=== PATIENT | female | born 1930 | race Hispanic/Latino ===

== ENCOUNTER 2016-10-07 15:20 | Inpatient (IN) | payer MEDICARE, OTHER ==
[2016-10-07] MEDS ORDERED: Albuterol-Ipratrop 3 mg / 0.5 (3 ml) UD IH STA (15:53)
--- NOTE | 2016-10-07 16:19 | ED PDOC ---
Arrival/HPI - General Chief Complaint: Shortness Of Breath Time Seen by Provider: 10/07/16 15:42 Historian: Patient - Critical Care Critical Care Minutes: 30 minutes - History of Present Illness Narrative History of Present Illness (Text): 10/07/16 16:07 A 86 year old female, whose past medical history includes COPD and emphysema, presents to the emergency department for shortness of breath for the past three weeks. Patient states her symptom has worsen today. She had a chest x-ray done today and instructed by her PMD Dr. Pedraza to go to the emergency department immediately due to right sided swelling. Patient denies nausea, vomiting, diarrhea, chest pain, abdominal pain, or any other complaints. PMD: Dr. Pedraza Time/Duration: > week (3 weeks) Symptom Course: Worsening Context: Home Past Medical History - Provider Review Nursing Documentation Reviewed: Yes - Infectious Disease Hx of Infectious Diseases: None - Pulmonary Hx Chronic Obstructive Pulmonary Disease (COPD): Yes - Psychiatric Hx Substance Use: No Family/Social History - Physician Review Nursing Documentation Reviewed: Yes Family/Social History: No Known Family HX Smoking Status: Never Smoked Hx Alcohol Use: No Hx Substance Use: No Allergies/Home Meds Allergies/Adverse Reactions: Allergies No Known Allergies Allergy (Verified 10/07/16 15:35) Home Medications: Home Meds Medication Instructions Recorded Confirmed Albuterol Sulfate [Proair Hfa] 0.09 mg IH DAILY 10/07/16 10/07/16 Amoxicillin [Amoxil 500 mg Cap] 500 mg PO TID 10/07/16 10/07/16 Brimonidine 0.15% [Alphagan P 5 Ml] 1 drop OP TID 10/07/16 10/07/16 Dorzolamide HCl 1 drop OP BID 10/07/16 10/07/16 Furosemide [Lasix] 20 mg PO DAILY 10/07/16 10/07/16 Latanoprost 0.005% Opht [XALATAN 1 drp OP HS 10/07/16 10/07/16 2.5 Ml] Salmeterol Xinafoate/Fluticaso 2 puff IH AMHS 10/07/16 10/07/16 [Advair Hfa 230/21] amLODIPine [Norvasc] 10 mg PO DAILY 10/07/16 10/07/16 Review of Systems - Physician Review All systems were reviewed & negative as marked: Yes - Review of Systems Constitutional: Normal Respiratory: SOB Cardiovascular: absent: Chest Pain Gastrointestinal: absent: Abdominal Pain, Diarrhea, Nausea, Vomiting Musculoskeletal: Other (Right sided swelling) Physical Exam Vital Signs Reviewed: Yes Vital Signs Temp Pulse Resp BP Pulse Ox 10/07/16 17:48 80 104/66 10/07/16 17:40 97.8 F 10/07/16 17:39 124 H 104/66 10/07/16 17:36 124 H 18 104/66 92 L 10/07/16 15:35 97.5 F L 130 H 20 106/67 92 L Temperature: Afebrile Blood Pressure: Normal Pulse: Tachycardic Respiratory Rate: Normal Appearance: Positive for: Well-Appearing Pain Distress: None Mental Status: Positive for: Alert and Oriented X 3 - Systems Exam Head: Present: Atraumatic, Normocephalic Pupils: Present: PERRL Conjunctiva: Present: Normal Mouth: Present: Moist Mucous Membranes Pharnyx: Present: Normal. No: ERYTHEMA, EXUDATE, TONSILS ENLARGED Neck: Present: Normal Range of Motion Respiratory/Chest: Present: Wheezes (Wheezing Bilaterally), Decreased Breath Sounds (on right side). No: Respiratory Distress, Accessory Muscle Use Cardiovascular: Present: Normal S1, S2, Irregular Rhythm, Tachycardic. No: Murmurs Abdomen: Present: Normal Bowel Sounds. No: Tenderness, Distention, Peritoneal Signs Upper Extremity: Present: Normal Inspection. No: Cyanosis, Edema Lower Extremity: Present: Normal Inspection. No: Edema Neurological: Present: GCS=15, CN II-XII Intact, Speech Normal, Motor Func Grossly Intact Skin: Present: Warm, Dry, Normal Color. No: Rashes Psychiatric: Present: Alert, Oriented x 3, Normal Insight, Normal Concentration Medical Decision Making ED Course and Treatment: 10/07/16 16:31 Impression: A 86 year old patient complains of shortness of breath. She was told by her PMD to come in for right sided swelling. History of COPD and emphysema. Plan: --Labs --EKG --Chest X-Ray --Duoneb -- Reassess and disposition Progress Notes: Report Date : 10/07/2016 16:39:45 Dictator : Alo Patel MD IMPRESSION: Complete opacification of right lung without mediastinal shift 10/07/16 17:[address] Knight, who accepts patient admission to telemetry. 10/07/16 18:04 EKG shows rapid atrial fibrillation rate approximately [address] and T-wave changes and poor R waves with no old available - Lab Interpretations Lab Results: 10/07/16 16:30 10/07/16 16:30 Lab Results 10/07/16 16:35: pCO2 46 H, pO2 65.0 L, HCO3 29.8 H, ABG pH 7.42, ABG Total CO2 31.2 H, ABG O2 Saturation 94.5 L, ABG O2 Content 16.1, ABG Base Excess 4.5 H, ABG Hemoglobin 12.5, ABG Carboxyhemoglobin 2.2 H, POC ABG HHb (Measured) 5.3 H, ABG Methemoglobin 1.2, ABG O2 Capacity 17.0, Hgb O2 Saturation 91.3 L, FiO2 21.0 10/07/16 16:30: Sodium 128 L, Potassium 3.8, Chloride 88 L, Carbon Dioxide 29, Anion Gap 15, BUN 13, Creatinine 0.7, Est GFR ( Amer) > 60, Est GFR (Non- Af Amer) > 60, Random Glucose 118 H, Calcium 9.0, Total Bilirubin 0.6, AST 27, ALT 40, Alkaline Phosphatase 64, Lactate Dehydrogenase 445, Total Creatine Kinase 36, Troponin I < 0.01, NT-Pro-B Natriuret Pep 583 H, Total Protein 7.1, Albumin 3.7, Globulin 3.3, Albumin/Globulin Ratio 1.1 10/07/16 16:30: PT 10.5, INR 0.97, APTT 29.6, D-Dimer, Quantitative 0.94 H 10/07/16 16:30: WBC 13.0 H, RBC 4.37, Hgb 12.3, Hct 36.3, MCV 83.1, MCH 28.1, MCHC 33.9, RDW 13.5, Plt Count 453 H, MPV 9.5, Gran % 81.2 H, Lymph % (Auto) 9.6 L, Bollinger % (Auto) 8.9 H, Eos % (Auto) 0.1 L, Baso % (Auto) 0.2, Gran # 10.53 H, Lymph # 1.3, Bollinger # 1.2 H, Eos # 0.0, Baso # 0.02 I have reviewed the lab results: Yes - RAD Interpretation Radiology Orders: 10/07/16 15:53 CHEST PORTABLE [RAD] Stat - Medication Orders Current Medication Orders: diltiaZEM IVPB 100mg in NS (Cardizem 100mg In Ns) 100 mls @ 5 mls/hr IV .Q20H PRN; Protocol; 5 MG/HR PRN Reason: PER MD Last Admin: 10/07/16 17:48 Dose: 5 mls/hr Discontinued Medications Albuterol/Ipratropium (Duoneb 3 Mg/0.5 Mg (3 Ml) Ud) 3 ml IH ONCE STA Stop: 10/07/16 15:54 Last Admin: 10/07/16 16:46 Dose: 3 ml Diltiazem HCl (Cardizem) 20 mg IVP ONCE ONE Stop: 10/07/16 17:14 Last Admin: 10/07/16 17:39 Dose: 15 mg Comments: Dr. Josef philip og only giving 15mg - Scribe Statement The provider has reviewed the documentation as recorded by the Scribe Maxim Chauhan training with Rosalinda Chanel Provider Scribe Attestation: All medical record entries made by the Scribe were at my direction and personally dictated by me. I have reviewed the chart and agree that the record accurately reflects my personal performance of the history, physical exam, medical decision making, and the department course for this patient. I have also personally directed, reviewed, and agree with the discharge instructions and disposition. Disposition/Present on Arrival - Present on Arrival Any Indicators Present on Arrival: No History of DVT/PE: No History of Uncontrolled Diabetes: No Urinary Catheter: No History of Decub. Ulcer: No History Surgical Site Infection Following: None - Disposition Have Diagnosis and Disposition been Completed?: Yes Diagnosis: Atrial fibrillation, Hypoxia, Pleural effusion, Dyspnea, Elevated d-dimer Disposition: HOSPITALIZED Disposition Time: 17:56 Patient Plan: Admission, Telemetry Patient Problems: Current Active Problems Problem Status Onset Atrial fibrillation Acute Dyspnea Acute Elevated d-dimer Acute Hypoxia Acute Pleural effusion Acute Condition: CRITICAL Forms: [employer] (Slovenian)
[2016-10-07 16:38] LABS: ARTERIAL BLOOD GAS HCO3 29.8 mmol/L (21-28); ARTERIAL BLOOD GAS HEMOGLOBIN 12.5 g/dL (11.7-17.4); ARTERIAL BLOOD GAS O2 CONTENT 16.1 ML/dl (15-23); ARTERIAL BLOOD GAS O2 SAT 94.5 % (95-98); ARTERIAL BLOOD GAS PCO2 46 mm/Hg (35-45); ARTERIAL BLOOD GAS PH 7.42 (7.35-7.45); ARTERIAL BLOOD GAS TCO2 31.2 mmol.L (22-28)
--- NOTE | 2016-10-07 16:41 | RAD ---
HISTORY: sob COMPARISON: No prior. FINDINGS: LUNGS: There is diffuse opacification of the right lung with no significant mediastinal shift. Findings are consistent with pneumonia PLEURA: There may also be a right-sided pleural effusion. CARDIOVASCULAR: Normal. OSSEOUS STRUCTURES: No significant abnormalities. VISUALIZED UPPER ABDOMEN: Normal. OTHER FINDINGS: None. IMPRESSION: Complete opacification of right lung without mediastinal shift
[2016-10-07 16:53] LABS: BASO # 0.02 K/mm3 (0.0-2.0); BASO % 0.2 % (0.0-3.0); EOS % 0.1 % (1.5-5.0); GRAN # 10.53 (1.4-6.5); GRAN % 81.2 % (50.0-68.0); HEMOGLOBIN 12.3 gm/dL (12.0-16.0); LYMPH # 1.3 (1.2-3.4); LYMPH % 9.6 % (22.0-35.0); MEAN CELL VOLUME 83.1 fL (80.0-105.0); MEAN CORPUSCULAR HEMOGLOBIN 28.1 pg (25.0-35.0); MEAN CORPUSCULAR HGB CONC 33.9 g/dl (31.0-37.0); MEAN PLATELET VOLUME 9.5 fl (7.0-11.0); MONO # 1.2 (0.1-0.6); MONO % 8.9 % (1.0-6.0); PLATELET COUNT 453 10^3/uL (120.0-450.0); RBC 4.37 10^6/uL (3.5-6.1); RED CELL DISTRIBUTION WIDTH 13.5 % (11.5-14.5)
[2016-10-07 17:05] LABS: D DIMER 0.94 mg/L FEU (0-0.50); INR 0.97 (0.93-1.08); PARTIAL THROMBOPLASTIN TIME 29.6 Seconds (23.7-30.8); PROTHROMBIN TIME 10.5 Seconds (9.9-11.8)
[2016-10-07 17:06] LABS: ALB/GLOB RATIO 1.1 (1.1-1.8); ALBUMIN 3.7 g/dL (3.0-4.8); ALT/SGPT 40 U/L (7-56); AST/SGOT 27 U/L (15-39); BLOOD UREA NITROGEN 13 mg/dL (7-21); GFR AFRICAN-AMERICAN > 60; GFR NON-AFRICAN AMERICAN > 60
[2016-10-07] MEDS ORDERED: diltiaZEM IVPB 100mg in NS 100 ML IV PRN (17:13)
[2016-10-07 17:15] LABS: B-TYPE NATRIURETIC PEPTIDE 583 pg/mL (0-450)
[2016-10-07 17:16] LABS: TROPONIN I < 0.01 ng/mL
[2016-10-07] MEDS ORDERED: Azithromycin 500MG/NS 250ml 500 MG/250 ML BAG IVPB STA (22:27)
[2016-10-07] MEDS ORDERED: Enoxaparin 30 mg Syringe SC SCH (22:30)
[2016-10-07] MEDS ORDERED: Sodium Chloride 0.9% 1,000 ML IV SCH (23:00)
[2016-10-07] MEDS: Enoxaparin 60 mg Syringe SC SCH (23:49)
[2016-10-08 00:04] LABS: MAGNESIUM 1.7 mg/dL (1.7-2.2)
[2016-10-08 00:19] LABS: TROPONIN I < 0.01 ng/mL
[2016-10-08 03:03] VITALS: BMI 80234.2
[2016-10-08 06:19] LABS: MEAN CELL VOLUME 83.3 fL (80.0-105.0); MEAN CORPUSCULAR HEMOGLOBIN 27.9 pg (25.0-35.0); MEAN CORPUSCULAR HGB CONC 33.5 g/dl (31.0-37.0); MEAN PLATELET VOLUME 9.7 fl (7.0-11.0); RBC 4.3 10^6/uL (3.5-6.1); RED CELL DISTRIBUTION WIDTH 13.7 % (11.5-14.5); WHITE BLOOD COUNT 9.9 10^3/ul (4.5-11.0)
[2016-10-08] MEDS ORDERED: Levalbuterol 0.63 MG/3 ML Inhal Soln UD IH PRN (06:40)
[2016-10-08 07:15] LABS: ALB/GLOB RATIO 0.9 (1.1-1.8); ALBUMIN 3.3 g/dL (3.0-4.8); ALT/SGPT 34 U/L (7-56); AST/SGOT 24 U/L (15-39); BLOOD UREA NITROGEN 9 mg/dL (7-21); CALCIUM 8.4 mg/dL (8.4-10.5); GFR AFRICAN-AMERICAN > 60; GFR NON-AFRICAN AMERICAN > 60; MAGNESIUM 1.7 mg/dL (1.7-2.2)
[2016-10-08] MEDS ORDERED: Potassium Chloride 20 mEq ER Tab PO ONE (07:22)
--- NOTE | 2016-10-08 07:23 | CP.PCM.HP ---
<Jennifer Cruz - Last Filed: 10/08/16 11:10> History of Present Illness - History of Present Illness History of Present Illness: CC: sent by PMD 2nd to abnormal chest x-ray Patient is an 86 y/o F with PMH of HTN, COPD, CHF, emphysema ( not on home oxygen) whom was sent from pmd's office 2nd to abnormal chest x-ray. Patient states she has been experiencing excertional dyspnea for 3 weeks, which has limited her activities. Patient has been using her advair and pro air at home with no improvement. Patient states her PMD did an x-ray and told her to come to the ED due to abnormality. Patient admits to mild yellowish sputum, denies hemoptysis, denies fever, chills, n.v.d, denies night sweats. Patient lives by herself, denies sick contacts. In the ED, patient had chest x-ray which revealed complete opacification of the lung on the right with no mediastinal shift. Patient was also found to have RVR afib on ekg. Patient was giving 20 mg ivp Cardizem once in the ED. Patient was also started on antibiotics for CAP. Blood work were sent. Patient was also hypoxemic, and is currently saturating 95% on 2 L nasal cannula. PMH: HTN, COPD, emphysema, chf. PSH: Denies Social: Former tobacco, denies alcohol or illicit drug use. Lives alone, downstairs from her daughter, her daughter does ADL, was able to walk with a cane up until 3 weeks ago when she started to experience dyspnea with exertion. Present on Admission - Present on Admission Any Indicators Present on Admission: No History of DVT/PE: No History of Uncontrolled Diabetes: No Urinary Catheter: No Decubitus Ulcer Present: No History Surgical Site Infection Following: None Review of Systems - Review of Systems All systems: reviewed and no additional remarkable complaints except Review of Systems: 12 points ROS reviewed, all negative except as per HPI. Past Patient History - Infectious Disease Hx of Infectious Diseases: None - Past Social History Smoking Status: Former Smoker Alcohol: None Drugs: Denies Home Situation {Lives}: Alone - CARDIAC Hx Congestive Heart Failure: Yes Hx Hypertension: Yes - PULMONARY Hx Chronic Obstructive Pulmonary Disease (COPD): Yes - MUSCULOSKELETAL/RHEUMATOLOGICAL Hx Falls: No - PSYCHIATRIC Hx Substance Use: No - SURGICAL HISTORY Hx Surgeries: No Meds Allergies/Adverse Reactions: Allergies Allergy/AdvReac Type Severity Reaction Status Date / Time No Known Allergies Allergy Verified 10/07/16 15:35 Physical Exam - Constitutional Appears: No Acute Distress, Cachectic, Chronically Ill - Head Exam Head Exam: ATRAUMATIC, NORMAL INSPECTION, NORMOCEPHALIC - Eye Exam Eye Exam: EOMI, Normal appearance, PERRL. absent: Scleral icterus Pupil Exam: NORMAL ACCOMODATION, PERRL - ENT Exam ENT Exam: Mucous Membranes Moist - Neck Exam Neck exam: Positive for: Normal Inspection. Negative for: Lymphadenopathy, Meningismus, Thyromegaly - Respiratory Exam Respiratory Exam: Decreased Breath Sounds (on the right ), NORMAL BREATHING PATTERN. absent: Rales, Rhonchi, Wheezes, Respiratory Distress, Stridor - Cardiovascular Exam Cardiovascular Exam: Irregular Rhythm, +S1, +S2. absent: Gallop, JVD, Rubs - GI/Abdominal Exam GI & Abdominal Exam: Normal Bowel Sounds, Soft. absent: Distended, Rigid, Tenderness - Extremities Exam Extremities exam: Positive for: normal inspection - Back Exam Back exam: NORMAL INSPECTION - Neurological Exam Neurological exam: Alert, Oriented x3 - Psychiatric Exam Psychiatric exam: Depressed - Skin Skin Exam: Abrasion, Dry, Warm Results - Vital Signs Recent Vital Signs: Last Vital Signs Temp 97.8 F 10/08/16 06:00 Pulse 94 H 10/08/16 06:00 Resp 18 10/08/16 06:00 BP 142/68 10/08/16 06:00 Pulse Ox 95 10/08/16 06:00 - Labs Result Diagrams: 10/08/16 05:20 10/08/16 05:20 Labs: Laboratory Results - last 24 hr 10/07/16 10/08/16 10/08/16 23:25 05:20 05:20 WBC 9.9 D RBC 4.30 Hgb 12.0 Hct 35.8 L MCV 83.3 MCH 27.9 MCHC 33.5 RDW 13.7 Plt Count 411 MPV 9.7 Sodium 128 L Potassium 3.4 L Chloride 90 L Carbon Dioxide 30 Anion Gap 11 BUN 9 Creatinine 0.6 Est GFR ( Amer) > 60 Est GFR (Non-Af Amer) > 60 Random Glucose 91 Calcium 8.4 Phosphorus 3.3 3.5 Magnesium 1.7 1.7 Total Bilirubin 0.5 AST 24 ALT 34 Alkaline Phosphatase 65 Troponin I < 0.01 Total Protein 6.9 Albumin 3.3 Globulin 3.6 Albumin/Globulin Ratio 0.9 L Assessment & Plan - Assessment and Plan (Free Text) Assessment: 1) Right lobar CAP 2) Acute bronchitis 3) COPD 4) RVR Afib 5) Hyponatremia likely diuretics induced versus SIADH. 6) Hypokalemia likely diuretics induced. 7) htn Plan: Patient is currently on Rocephin, and zithromax for CAP. Afebrile, leukocytosis is trending down, bcx, urine legionella, and procal pending. ID following Patient is also on pulmocort, xoponex standing dose and prn, with tapering dose solumedrol for acute bronchitis. Pulm following. Pending repeat A/P lateral chest x-ray. For RV afib, rate is currently controlled, on po Lopressor. Also on therapeutic Lovenox. Will likely need fdc anticoagulation giving [id number] score of 5 and HASBELD score of zero. Trop neg x3, pro bnp of 583, Pending echo, tsh normal. Cardiology is following. Patient had elevated D-dimer, risk of PE according to [place] score is moderate, however d-dimer elevation may be due to large consolidation of the lung, and the tachycardia is likely 2nd to reaction from the infection. Will hold off CTPE for now. For hyponatremia, calculated serum osmolarity of 267, pending complete work up for hyponatremia. Potassium is repleted. Patient seen, examined, and case discussed with Dr Knight. - Date & Time Date: 10/08/16 Time: 07:40 <Rick Knight S - Last Filed: 10/08/16 15:00> Results - Vital Signs Recent Vital Signs: Last Vital Signs Temp 97.8 F 10/08/16 06:00 Pulse 86 10/08/16 11:57 Resp 20 10/08/16 11:57 BP 129/68 10/08/16 11:57 Pulse Ox 95 10/08/16 06:00 - Labs Result Diagrams: 10/08/16 05:20 10/08/16 05:20 Labs: Laboratory Results - last 24 hr 10/07/16 10/08/16 10/08/16 23:25 05:20 05:20 WBC 9.9 D RBC 4.30 Hgb 12.0 Hct 35.8 L MCV 83.3 MCH 27.9 MCHC 33.5 RDW 13.7 Plt Count 411 MPV 9.7 Sodium 128 L Potassium 3.4 L Chloride 90 L Carbon Dioxide 30 Anion Gap 11 BUN 9 Creatinine 0.6 Est GFR ( Amer) > 60 Est GFR (Non-Af Amer) > 60 Random Glucose 91 Serum Osmolality Calcium 8.4 Phosphorus 3.3 3.5 Magnesium 1.7 1.7 Total Bilirubin 0.5 AST 24 ALT 34 Alkaline Phosphatase 65 Troponin I < 0.01 < 0.01 Total Protein 6.9 Albumin 3.3 Globulin 3.6 Albumin/Globulin Ratio 0.9 L TSH 3rd Generation 10/08/16 10/08/16 05:20 13:22 WBC RBC Hgb Hct MCV MCH MCHC RDW Plt Count MPV Sodium Potassium Chloride Carbon Dioxide Anion Gap BUN Creatinine Est GFR ( Amer) Est GFR (Non-Af Amer) Random Glucose Serum Osmolality 274 Calcium Phosphorus Magnesium Total Bilirubin AST ALT Alkaline Phosphatase Troponin I Total Protein Albumin Globulin Albumin/Globulin Ratio TSH 3rd Generation 2.5 Assessment & Plan - Assessment and Plan (Free Text) Plan: Pt seen and exmined by me. I reviewed the note of the resident and agree with it. She has R lung infiltrate, possibly pneumonia. Spoke to daughter, Humaira, to update. Spoke to Dr Love and will get CT chest. May have effusion that requires drainage. Will consult Dr Skyler Lee. Meds and labs reviewed. I concerns of a malignancy due to heavy smoking history. She has been placed on Steroids for COPD. Afib is controlled. Check Osmolarity in urine and in serum.
[2016-10-08 07:26] LABS: TROPONIN I < 0.01 ng/mL
[2016-10-08] MEDS: Budesonide 0.5 mg/2 ml Inhal Susp UD IH SCH ×2 (07:56→20:58)
[2016-10-08] MEDS: Levalbuterol 0.63 MG/3 ML Inhal Soln UD IH SCH ×3 (07:56→20:59)
--- NOTE | 2016-10-08 08:26 | CON ---
DATE: 10/08/2016 REASON FOR CONSULTATION: Pneumonia. REFERRING PHYSICIAN: Rick Knight MD History is obtained via extensive discussion with the night nurse. I have also discussed the case with the patient at length. I have also reviewed the chart at length. HISTORY OF PRESENT ILLNESS: The patient is an 86-year-old female with past medical history significant for chronic obstructive pulmonary disease and emphysema, who presents to [facility] with increasing shortness of breath at rest, dyspnea on exertion, cough and minimal sputum production for the past week. The patient denies chest pain, coughing up of blood or chest pain-made worse with deep respirations. There is no history of temperature, chills or infectious exposure. There is no history of night sweats, weight loss or appetite change prior to the above events. No history of leg or calf pains. No history of syncope or diaphoresis. No history of recent travel or trauma. REVIEW OF SYSTEMS: No history of nausea, vomiting or diarrhea. No acute urinary symptoms. No new neurological or musculoskeletal complaints. Rest of the review of systems is negative. ALLERGIES: NO KNOWN ALLERGIES. SOCIAL HISTORY: Positive for tobacco. Negative for alcohol. FAMILY HISTORY: No inheritable diseases. HOME MEDICATIONS: Include Norvasc, Advair, Lasix, Amoxil and ProAir HFA. PHYSICAL EXAMINATION GENERAL: The patient is not short of breath at rest. She is not using accessory muscles for breathing. VITAL SIGNS: Temperature is 97.8, pulse 94, respirations 18 and blood pressure 142/68. Oxygen saturation on nasal cannula is 95%. HEENT: Normocephalic, atraumatic. NECK: No JVD. CARDIOVASCULAR: Systolic ejection murmur at the lower left sternal border. No S3 gallop. LUNGS: Bilateral rhonchi (right worse than left). Minimal expiratory wheezing bilaterally is also appreciated. EXTREMITIES: No clubbing, cyanosis or edema. Calves are nontender to palpation. GASTROINTESTINAL: Abdomen is soft, nontender and nondistended. Bowel sounds are positive. SKIN: No acute rash. NEUROLOGIC: Exam is limited at the present time. PERTINENT LABORATORY DATA: Chest x-ray was done yesterday and reviewed. There is diffuse opacification of the right lug with no mediastinal shift. Findings are consistent with pneumonia. CBC: White count 13.0, hemoglobin 12.3, hematocrit 36.3 and platelets are 453. Arterial blood gas was done on room air, results are: pH 7.42, pCO2 of 46 and pO2 of 65. Complete metabolic profile: Sodium 128, chloride 88, glucose 118, B-type natriuretic peptide 583. Rest of the metabolic profile is within normal limits. EKG was done in the emergency room and initially showed rapid atrial fibrillation. IMPRESSION: 1. Community-acquired pneumonia-right lung. 2. Acute bronchitis. 3. Chronic obstructive pulmonary disease. 4. Atrial fibrillation. PLAN: Again, I did discuss the case with the night nurse and the patient at length. The patient presents to [facility] with a 1 week history of worsening pulmonary symptoms. I did review the chest x-ray as above. There is diffuse opacification of the right lung without a mediastinal shift. As per Dr. Alamo, the findings are more consistent with pneumonia. The chest x-ray (as above) was done as a semi-erect portable film. It is fairly poor in quality. I will get a stat chest x-ray-PA and lateral-for better evaluation this morning. Pancultures have been ordered and will be analyzed when feasible. The patient has been started on antibiotic therapy. Infectious disease evaluation by Dr. Tovar has been ordered. On physical exam, the patient is in [id number] bronchospasm. I will start the patient on Xopenex nebulizer treatments, inhaled budesonide and low-dose intravenous steroids for now. Cardiology evaluation with Dr. Pineda has been called-due to the atrial fibrillation. The patient is currently on Lovenox. The patient does feel better this morning and is clinically improved. Additional pulmonary intervention will be based on the above results, as well as the clinical status of the patient. I will discuss the above with Dr. Knight. Thank you very much for this pulmonary consultation. Gabo Love MD MTDYvonne
--- NOTE | 2016-10-08 09:07 | CARD ---
APPROVED REPORT EKG Measurement Heart [id number] <Conclusion> Atrial fibrillation with rapid ventricular response Rightward axis PRWP STTW changes
--- NOTE | 2016-10-08 09:57 | RAD ---
HISTORY: COMPARISON: 10/07/2016 TECHNIQUE: Chest PA and lateral FINDINGS: LINES AND TUBES: None. LUNG AND PLEURA: There is persistent complete opacification of the right lung and mild shift of mediastinal to the left. The left lung is clear. The trachea is central. HEART AND MEDIASTINUM: Cannot be evaluated due to complete opacification of the right main thorax. Mild shift of mediastinal to the left. SKELETAL STRUCTURES: The bony structures are within normal limits for the patient's age. VISUALIZED UPPER ABDOMEN: Normal. OTHER FINDINGS: None. IMPRESSION: Persistent complete opacification of the right hemithorax with mild shift of mediastinal to the left. The differential considerations include pleural effusion and consolidation. The possibility of lung collapse is less likely given mild mediastinal shift to the left.
--- NOTE | 2016-10-08 10:13 | CT ---
PROCEDURE: CT Chest without contrast HISTORY: sob COMPARISON: None. TECHNIQUE: Contiguous axial images were obtained through the chest without intravenous contrast enhancement. Sagittal and coronal reconstructions were performed. Radiation dose (DLP): 213 mGy-cm. This CT exam was performed using one or more of the following dose reduction techniques: Automated exposure control, adjustment of the mA and/or kV according to patient size, and/or use of iterative reconstruction technique. FINDINGS: LUNGS: There is complete collapse in atelectasis of the right lung secondary to an endobronchial obstruction of the right mainstem bronchus. This is most likely due to a mucus plug. The finding is best appreciated on coronal image 56. MEDIASTINUM: Unremarkable thoracic aorta. No aneurysm. Normal sized heart. Main pulmonary artery unremarkable. No vascular congestion. No lymphadenopathy. PLEURA: There is a large right-sided pleural effusion BONES: No fracture. No destructive lesion. UPPER ABDOMEN: Grossly unremarkable. OTHER FINDINGS: The study was reviewed with Dr. Love IMPRESSION: Endobronchial obstruction of the right mainstem bronchus with complete atelectasis of the right lung and large right pleural effusion
[2016-10-08] MEDS: cefTRIAXone 1 gm 1 GM/100 ML BAG IVPB SCH (11:20)
[2016-10-08] MEDS: Azithromycin 500MG/NS 250ml 500 MG/250 ML BAG IVPB SCH (11:21)
--- NOTE | 2016-10-08 11:21 | CON ---
DATE: 10/08/2016 INDICATIONS: Shortness of breath, paroxysmal atrial fibrillation. HISTORY OF PRESENT ILLNESS: This is an 86-year-old woman admitted yesterday with several weeks of shortness of breath. She saw Dr. Pedraza. A chest x-ray was ordered and revealed opacification of the right chest. She was also found to have atrial fibrillation with a rapid ventricular respons. She exhibited atrial fib, atrial flutter, rapid ventricular response, short runs of ventricular tachycardia versus aberrantly conducted beats and she converted to sinus rhythm, her current rhythm at this time. She describes shortness of breath for several weeks, there has been no chest pain. She denies orthopnea, PND, syncope, presyncope, lightheadedness, dizziness, vertigo, palpitation, edema, fever, chills, cough, sputum production, hemoptysis, abdomina pain, nausea, vomiting, diarrhea, constipation or melena. PAST MEDICAL HISTORY: Notable for cigarette smoking and COPD. There is a history of hypertension. There is no history of rheumatic fever, myocardial infarction, angina, congestive heart failure, stoke, TIA, gout, diabetes. MEDICATIONS: At the time of admission were amlodipine, Alphagan, Advair, amoxicillin, dorzolamide, Lasix, Albuterol, latanoprost. ALLERGIES: THERE ARE NO MEDICATION ALLERGIES REPORTED. SOCIAL HISTORY: She lives at home. She is a former, remote smoker. She does not drink alcohol significantly. FAMILY HISTORY: Noncontributory. REVIEW OF SYSTEMS: A 10-point review of systems, otherwise unremarkable except as noted above. PHYSICAL EXAMINATION: GENERAL: She is a well-developed elderly woman, lying in bed on telemetry, in no acute distress. VITAL SIGNS: She is currently in sinus rhythm 70-94 beats per minutes. She is afebrile. Respirations 18-20, O2 sat 92-95% on room air and nasal cannula. HEENT: Reveals no neck vein distention, thyromegaly, or carotid bruits. Mucous membranes moist. Conjunctivae pink. NECK: Supple. LUNGS: Lungs joy diminished breath sounds on the right side, scattered rhonchi on the left. HEART: Revealed a regular rhythm, normal first and second heart sounds. Soft systolic murmur along the left sternal border. ABDOMEN: Soft, bowel sounds present. No mass, organomegaly, tenderness, rebound, guarding, CVA tenderness, palpable abdominal aortic aneurysm. EXTREMITIES: Revealed no cyanosis, clubbing, or edema. NEUROLOGIC: Awake, alert, and oriented. PSYCHIATRIC: Normal to less than mood and affect. SKIN: Warm and dry. No rash or cellulitis. LABORATORY AND IMAGING DATA: A chest x-ray revealed opacification of the right hemithorax without mediastinal shift. EKG demonstrates atrial fibrillation, poor R wave progression, nonspecific ST wave changes. White count of 9900, hemoglobin 12, hematocrit 35.8, platelet count normal. PT,PTT, INR normal. D-dimer elevated at 0.94. Blood gases are noted. Electrolytes notable for sodium 128, potassium 3.4, magnesium 1.7. LFTs unremarkable. Three troponins are negative. CK was 36. BNP 583. TSH is normal. IMPRESSION: Piedad Dang is an 86-year-old woman who is admitted with a shortness of breath, found to have opacification of the right hemithorax, without mediastinal shift and paroxysmal atrial fibrillation, currently in sinus rhythm on telemetry with no evidence of myocardial infarction. PLAN: At this time, she is getting potassium replacement. She will have a pulmonary consultation. Consideration would be given to CT scan of the chest and possible thoracentesis. 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 I will get an echocardiogram. I will start her on metoprolol. She will continue on telemetry. We will continue amlodipine. She is getting Lovenox. She should be cultured. She is getting antibiotics and steroids. I would monitor I's and O's. Check stool for occult blood. Monitor labs. I will follow along with you and make additional recommendations based on the clinical course. Willie Pineda MD MTDYvonne
[2016-10-08] MEDS: Enoxaparin 60 mg Syringe SC SCH ×2 (11:22→22:27)
[2016-10-08] MEDS: MethylPREDNISolone 40 mg Vial IVP SCH ×2 (11:22→22:27)
--- NOTE | 2016-10-08 12:33 | CP.PCM.PN ---
Subjective - Date & Time of Evaluation Date of Evaluation: 10/07/16 Time of Evaluation: 23:30 - Subjective Subjective: Patient was seen at bedside because she showed 8 beats of VTACH on monitor. She has no complaints at this time. Denies chest pain, sob, nausea,vomiting,sweating ,palpitations. ROS:Negative except as mentioned above. This 86 year old white woman was admitted Has PMH of Emphysema,HTN,CHF,Ex smoker. Objective - Vital Signs/Intake and Output Vital Signs (last 24 hours): Temp Pulse Resp BP Pulse Ox 97.8 F 86 20 129/68 95 10/08/16 06:00 10/08/16 11:57 10/08/16 11:57 10/08/16 11:57 10/08/16 06:00 - Medications Medications: Current Medications Acetylcysteine (Acetylcysteine 20%) 4 ml IH [id number] [facility] Amlodipine Besylate (Norvasc) 10 mg PO DAILY [facility] Last Admin: 10/08/16 11:22 Dose: 10 mg Budesonide (Pulmicort Respules) 0.5 mg IH [id number] [facility] Last Admin: 10/08/16 07:56 Dose: 0.5 mg Enoxaparin Sodium (Lovenox) 50 mg SC Q12H [facility] PRN Reason: Protocol Last Admin: 10/08/16 11:22 Dose: 50 mg Ceftriaxone Sodium (Rocephin 1 Gram Ivpb) 1 gm in 100 mls @ 100 mls/hr IVPB DAILY [facility] PRN Reason: Protocol Last Admin: 10/08/16 11:20 Dose: 100 mls/hr Azithromycin (Zithromax 500mg In Ns) 500 mg in 250 mls @ 250 mls/hr IVPB Q24H [facility] PRN Reason: Protocol Last Admin: 10/08/16 11:21 Dose: 250 mls/hr Levalbuterol HCl (Xopenex) 0.63 mg IH [id number] [facility] Last Admin: 10/08/16 07:56 Dose: 0.63 mg Levalbuterol HCl (Xopenex) 0.63 mg IH Q2 PRN PRN Reason: Shortness of Breath Methylprednisolone (Solu-Medrol) 20 mg IVP Q12 [facility] Last Admin: 10/08/16 11:22 Dose: 20 mg Metoprolol Tartrate (Lopressor) 25 mg PO BID [facility] Last Admin: 10/08/16 09:21 Dose: Not Given - Labs Labs: 10/08/16 05:20 10/08/16 05:20 PT 10.5 Seconds (9.9-11.8) 10/07/16 16:30 INR 0.97 (0.93-1.08) 10/07/16 16:30 APTT 29.6 Seconds (23.7-30.8) 10/07/16 16:30 - Constitutional Appears: Well, No Acute Distress - Head Exam Head Exam: ATRAUMATIC, NORMAL INSPECTION, NORMOCEPHALIC - Eye Exam Eye Exam: Normal appearance - ENT Exam ENT Exam: Normal External Ear Exam - Neck Exam Neck Exam: Normal Inspection - Respiratory Exam Respiratory Exam: NORMAL BREATHING PATTERN - Cardiovascular Exam Cardiovascular Exam: absent: JVD - GI/Abdominal Exam GI & Abdominal Exam: absent: Distended - Rectal Exam Rectal Exam: Deferred - Exam Additional comments: Deferred. - Extremities Exam Extremities Exam: Normal Inspection - Back Exam Back Exam: NORMAL INSPECTION - Neurological Exam Neurological Exam: Alert, Awake - Psychiatric Exam Psychiatric exam: Normal Affect, Normal Mood - Skin Skin Exam: Normal Color Assessment and Plan - Assessment and Plan (Free Text) Assessment: Non sustained VTACH. CHF. Emphysema. HTN. Elevated BNP. Leukocytosis. Plan: EKG------> No acute changes. BMP,troponin, magnesium levels. Continue present management.
--- NOTE | 2016-10-08 13:44 | CP.PCM.CON ---
History of Present Illness - History of Present Illness History of Present Illness: 86 year old female with PMH of COPD was brought in because of worsening shortness of breath for the past 2 weeks, with associated dyspnea on exertion and dry cough. She denies fever or chills, no nausea or vomiting, no chest pain , no abdominal pain, no diarrhea, no dysuria. In the ED, CXR was done which showed complete opacification of the right lung joy. CT chest was then done which showed consolidation/atelectasis and probable pleural effusion. Infectious Diseases consult is requested to further evaluate and manage. The patient denies being on antibiotics in the past 3 months, no hospitalization as well. She denies recent travel outside of [place] in the past 3 months. Review of Systems - Review of Systems All systems: reviewed and no additional remarkable complaints except (as per HPI ) Past Patient History - Infectious Disease Hx of Infectious Diseases: None - Past Social History Smoking Status: Never Smoked - CARDIAC Hx Congestive Heart Failure: Yes Hx Hypertension: Yes - PULMONARY Hx Chronic Obstructive Pulmonary Disease (COPD): Yes - MUSCULOSKELETAL/RHEUMATOLOGICAL Hx Falls: No - PSYCHIATRIC Hx Substance Use: No - SURGICAL HISTORY Hx Surgeries: No Meds Allergies/Adverse Reactions: Allergies Allergy/AdvReac Type Severity Reaction Status Date / Time No Known Allergies Allergy Verified 10/07/16 15:35 - Medications Medications: Current Medications Amlodipine Besylate (Norvasc) 10 mg PO DAILY [facility] Budesonide (Pulmicort Respules) 0.5 mg IH [id number] [facility] Enoxaparin Sodium (Lovenox) 50 mg SC Q12H [facility] PRN Reason: Protocol Last Admin: 10/07/16 23:49 Dose: 50 mg Ceftriaxone Sodium (Rocephin 1 Gram Ivpb) 1 gm in 100 mls @ 100 mls/hr IVPB DAILY [facility] PRN Reason: Protocol Sodium Chloride (Sodium Chloride 0.9%) 1,000 mls @ 100 mls/hr IV .Q10H [facility]CLUDES [facility] Stop: 10/08/16 08:59 Last Admin: 10/07/16 23:49 Dose: 100 mls/hr Levalbuterol HCl (Xopenex) 0.63 mg IH [id number] [facility] Levalbuterol HCl (Xopenex) 0.63 mg IH Q2 PRN PRN Reason: Shortness of Breath Methylprednisolone (Solu-Medrol) 20 mg IVP Q12 [facility] Physical Exam - Constitutional Appears: Non-toxic, No Acute Distress - Head Exam Head Exam: NORMAL INSPECTION - ENT Exam ENT Exam: Mucous Membranes Moist - Neck Exam Neck exam: Negative for: Lymphadenopathy, Meningismus - Respiratory Exam Respiratory Exam: Decreased Breath Sounds (especially on the right lung joy) - Cardiovascular Exam Cardiovascular Exam: +S1, +S2 - GI/Abdominal Exam GI & Abdominal Exam: Soft. absent: Tenderness Results - Vital Signs Recent Vital Signs: Last Vital Signs Temp 97.8 F 10/08/16 06:00 Pulse 94 H 10/08/16 06:00 Resp 18 10/08/16 06:00 BP 142/68 10/08/16 06:00 Pulse Ox 95 10/08/16 06:00 - Labs Result Diagrams: 10/08/16 05:20 10/08/16 05:20 Labs: Laboratory Results - last 24 hr 10/07/16 10/08/16 23:25 05:20 WBC 9.9 D RBC 4.30 Hgb 12.0 Hct 35.8 L MCV 83.3 MCH 27.9 MCHC 33.5 RDW 13.7 Plt Count 411 MPV 9.7 Phosphorus 3.3 Magnesium 1.7 Troponin I < 0.01 Assessment & Plan - Assessment and Plan (Free Text) Plan: Assessment Systemic Inflammatory Response Syndrome, R/O sepsis due to community-acquired pneumonia in this patient presenting with right lung complete opacification COPD Plan Patient has been started on Rocephin and Zithromax; follow up PCT, blood cx will discuss with Pulmonary re: possible pleural effusion will monitor clinically
[2016-10-08] MEDS: Acetylcysteine 20% Inhal Soln (4ml) IH SCH ×2 (13:57→20:58)
--- NOTE | 2016-10-08 14:46 | CARD ---
APPROVED REPORT EKG Measurement Heart [id number] <Conclusion> Normal sinus rhythm. Borderline 1st degree AVB. Rightward axis Low voltage QRS
[2016-10-08 15:13] LABS: OSMOLALITY,URINE 338 mosm/kg (50-645)
[2016-10-09] MEDS: Acetylcysteine 20% Inhal Soln (4ml) IH SCH ×4 (02:00→20:00)
[2016-10-09] MEDS: Levalbuterol 0.63 MG/3 ML Inhal Soln UD IH SCH ×5 (02:00→20:00)
[2016-10-09 07:35] LABS: GRAN # 5.24 (1.4-6.5); GRAN % 80.5 % (50.0-68.0); HEMOGLOBIN 11.7 gm/dL (12.0-16.0); LYMPH # 0.9 (1.2-3.4); MEAN CELL VOLUME 83.6 fL (80.0-105.0); MEAN CORPUSCULAR HEMOGLOBIN 27.4 pg (25.0-35.0); MEAN CORPUSCULAR HGB CONC 32.8 g/dl (31.0-37.0); MEAN PLATELET VOLUME 9.5 fl (7.0-11.0); MONO # 0.4 (0.1-0.6); MONO % 5.5 % (1.0-6.0); PLATELET COUNT 421 10^3/uL (120.0-450.0); RBC 4.27 10^6/uL (3.5-6.1); RED CELL DISTRIBUTION WIDTH 13.5 % (11.5-14.5); WHITE BLOOD COUNT 6.5 10^3/ul (4.5-11.0)
[2016-10-09 07:44] LABS: BLOOD UREA NITROGEN 9 mg/dL (7-21); CALCIUM 8.8 mg/dL (8.4-10.5); GFR AFRICAN-AMERICAN > 60; GFR NON-AFRICAN AMERICAN > 60
[2016-10-09] MEDS: Budesonide 0.5 mg/2 ml Inhal Susp UD IH SCH ×2 (08:12→20:00)
--- NOTE | 2016-10-09 08:13 | CP.PCM.PN ---
Subjective - Date & Time of Evaluation Date of Evaluation: 10/09/16 Time of Evaluation: 07:00 - Subjective Subjective: Stable on 2R. Still dyspnea with min. exertion. No CP. V/S noted. Mostly RSR, some runs of AF/Flutter with mod. VR noted. PE: Lungs: decreased BS right side Cor.: S1S2, soft Systolic murmur Abd.: soft Ext.: no edema Neuro.: alert I/O = recorded CT chest noted. Echo done. Will review. Prelim>NL LV fx. Labs noted: H/H , na+= 129, K+= 4.2 ECG 10/08: RSR, PRWP, NSSTW changes Objective - Vital Signs/Intake and Output Vital Signs (last 24 hours): Temp Pulse Resp BP Pulse Ox 97.1 F L 97 H 20 120/75 98 10/09/16 06:00 10/09/16 06:00 10/09/16 06:00 10/09/16 06:00 10/09/16 06:00 Intake and Output: 10/09/16 10/09/16 06:59 18:59 Intake Total 80 Output Total 650 Balance -570 - Medications Medications: Current Medications Acetylcysteine (Acetylcysteine 20%) 4 ml IH [id number] [facility] Last Admin: 10/09/16 02:00 Dose: Not Given Amlodipine Besylate (Norvasc) 10 mg PO DAILY [facility] Last Admin: 10/08/16 11:22 Dose: 10 mg Budesonide (Pulmicort Respules) 0.5 mg IH [id number] [facility] Last Admin: 10/08/16 20:58 Dose: 0.5 mg Enoxaparin Sodium (Lovenox) 50 mg SC Q12H [facility] PRN Reason: Protocol Last Admin: 10/08/16 22:27 Dose: 50 mg Ceftriaxone Sodium (Rocephin 1 Gram Ivpb) 1 gm in 100 mls @ 100 mls/hr IVPB DAILY [facility] PRN Reason: Protocol Last Admin: 10/08/16 11:20 Dose: 100 mls/hr Azithromycin (Zithromax 500mg In Ns) 500 mg in 250 mls @ 250 mls/hr IVPB Q24H [facility] PRN Reason: Protocol Last Admin: 10/08/16 11:21 Dose: 250 mls/hr Levalbuterol HCl (Xopenex) 0.63 mg IH [id number] [facility] Last Admin: 10/09/16 04:58 Dose: 0.63 mg Levalbuterol HCl (Xopenex) 0.63 mg IH Q2 PRN PRN Reason: Shortness of Breath Methylprednisolone (Solu-Medrol) 20 mg IVP Q12 [facility] Last Admin: 10/08/16 22:27 Dose: 20 mg Metoprolol Tartrate (Lopressor) 25 mg PO BID [facility] Last Admin: 10/08/16 17:03 Dose: 25 mg - Labs Labs: 10/09/16 07:18 10/09/16 07:18 PT 10.5 Seconds (9.9-11.8) 10/07/16 16:30 INR 0.97 (0.93-1.08) 10/07/16 16:30 APTT 29.6 Seconds (23.7-30.8) 10/07/16 16:30 Assessment and Plan - Assessment and Plan (Free Text) Assessment: Dyspnea Opacification of right lung with endobronchial lesion right main stem bronchus seen on CT, R/O lung cancer, pneumonia Right pleural effusion COPD/Emphysema/Former Smoker PAF/Flutter HBP Glaucoma Plan: As per pulmonary. Thoracentesis As per ID. Check cultures Will read echo Increase metoprolol to 25 TID OOB to chair as elvia.
--- NOTE | 2016-10-09 09:14 | PN ---
DATE: 10/09/2016 SUBJECTIVE: The patient appears comfortable at rest. She is not short of breath. She is weak and frail appearing. PHYSICAL EXAMINATION VITAL SIGNS: Temperature is 97.1, pulse 97, respirations 18/20, blood pressure 120/75. Oxygen saturation on nasal cannula is 98%. HEENT: Normocephalic, atraumatic. NECK: No JVD. CARDIOVASCULAR: Systolic ejection murmur at the lower left sternal border. No S3 gallop. LUNGS: Less rhonchi. Less wheezing. EXTREMITIES: No clubbing, cyanosis, or edema. Calves are nontender to palpation. GASTROINTESTINAL: Abdomen is soft, nontender, nondistended. Bowel sounds are positive. SKIN: No acute rash. NEUROLOGIC: Exam is limited at the present time. PERTINENT LABORATORY DATA: The patient did have a CAT scan of the chest done yesterday. I did review the CAT scan of the chest with Dr. Alamo (Radiology) at length. There is collapse of the right lung due to a right mainstem endobronchial obstruction. This phenomenon is most likely due to a mucus plug, but a malignant endobronchial lesion cannot be ruled out. There is a very large right pleural effusion noted. Interesting to note, there is no lymphadenopathy. IMPRESSION: 1. Mucus plug versus malignant endobronchial lesion-right mainstem bronchus. 2. Very large right pleural effusion. 3. Rule out underlying pneumonia. 4. Acute bronchitis. 5. Chronic obstructive pulmonary disease. 6. Cardiac arrhythmias. PLAN: The patient appears comfortable this morning. She is not short of breath at rest. She does state she is feeling better overall. I did discuss the case with the night nurse at length. The night nurse confirms that the patient is in and out of atrial fibrillation/atrial flutter. In addition, the patient also had a short run of ventricular tachycardia the night before last. I would continue with the Cardiology evaluation and treatment as per Dr. Pineda. His input is noted. I did review the CAT scan of the chest with Dr. Alamo. As above, there is endobronchial obstruction of the right mainstem bronchus. Due to the lack of lymphadenopathy, the most common reason would be due to a mucus plug. However, again, a malignant endobronchial lesion cannot be ruled out at this point in time. Also noted above, the CAT scan shows a very large right pleural effusion. I did discuss the case with Dr. Skyler Hillman (Interventional Radiology) at length yesterday. Thoracentesis will be done in the very near future. On physical exam, there is less bronchospasm noted. I will continue with the current nebulizer treatments and low-dose intravenous steroids for now. I will also continue with the aggressive pulmonary toilet, and I have discussed the case with the respiratory therapist again this morning. Clinical status/prognosis--for this very elderly patient--remains very guarded at this point in time. I did discuss the case with Dr. Knight at length yesterday. He agrees with the above plan. I will discuss the above with the attending physician this morning. Gabo Love MD MTDD
[2016-10-09] MEDS: Enoxaparin 60 mg Syringe SC SCH ×2 (09:30→21:29)
[2016-10-09] MEDS: MethylPREDNISolone 40 mg Vial IVP SCH ×2 (09:32→21:27)
[2016-10-09] MEDS: cefTRIAXone 1 gm 1 GM/100 ML BAG IVPB SCH (09:32)
--- NOTE | 2016-10-09 09:41 | CARD ---
APPROVED REPORT EXAM: Two-dimensional and M-mode echocardiogram with Doppler and color Doppler. Other Information Quality : FairRhythm : INDICATION Dyspnea Pleural Effusion 2D DIMENSIONS Left Atrium (2D)4.1 (1.6-4.0cm)IVSd0.9 (0.7-1.1cm) LVDd3.5 (3.9-5.9cm)PWd0.9 (0.7-1.1cm) LVDs2.7 (2.5-4.0cm)FS (%) 24.7 % LVEF (%)50.0 (>50%) M-Mode DIMENSIONS Aortic Root2.60 (2.2-3.7cm)Aortic Cusp Exc.1.20 (1.5-2.0cm) Aortic Valve AoV Peak [id number]/s Mitral Valve E/A ratio0.0 TDI E/Lateral E'0.0E/Medial E'0.0 Tricuspid Valve TR Peak Rayuxpnm020sr/sRAP [id number] Peak Gr.56mmHg [id number] LEFT VENTRICLE The left ventricle is normal size. There is normal left ventricular wall thickness. The left ventricular function is normal. The left ventricular ejection fraction is within the normal range. There is normal LV segmental wall motion. RIGHT VENTRICLE The right ventricle is normal size. ATRIA The left atrium is mildly dilated. The right atrium size is normal. The interatrial septum is intact with no evidence for an atrial septal defect. AORTIC VALVE The aortic valve is normal in structure. MITRAL VALVE The mitral valve is normal in structure. Mitral regurgitation is mild. TRICUSPID VALVE The tricuspid valve is normal in structure. There is moderate tricuspid regurgitation. There is moderate-severe pulmonary hypertension. PULMONIC VALVE The pulmonic valve is not well visualized. GREAT VESSELS The aortic root is normal in size. PERICARDIAL EFFUSION There is a small loculated anterior pericardial effusion. <Conclusion> The left ventricle is normal size. There is normal left ventricular wall thickness. The left ventricular function is normal. Mitral regurgitation is mild. There is moderate tricuspid regurgitation. There is moderate-severe pulmonary hypertension. There is a small loculated anterior pericardial effusion.
[2016-10-09] MEDS: Azithromycin 500MG/NS 250ml 500 MG/250 ML BAG IVPB SCH (10:19)
--- NOTE | 2016-10-09 10:34 | CARD ---
APPROVED REPORT EKG Measurement Heart [id number] [id number] <Conclusion> Normal sinus rhythm PRWP Possible limb lead reversal NSSTW changes
--- NOTE | 2016-10-09 12:46 | CP.PCM.PN ---
Subjective - Date & Time of Evaluation Date of Evaluation: 10/09/16 Time of Evaluation: 11:35 - Subjective Subjective: Comfortable on a chair, not in distress. No fevers. Complaining of some swelling of the right arm and hand (in the area of previous IV site). Objective - Vital Signs/Intake and Output Vital Signs (last 24 hours): Temp Pulse Resp BP Pulse Ox 97.1 F L 97 H 20 120/75 98 10/09/16 06:00 10/09/16 06:00 10/09/16 06:00 10/09/16 06:00 10/09/16 06:00 Intake and Output: 10/09/16 10/09/16 06:59 18:59 Intake Total 80 Output Total 650 Balance -570 - Medications Medications: Current Medications Acetylcysteine (Acetylcysteine 20%) 4 ml IH [id number] [facility] Last Admin: 10/09/16 02:00 Dose: Not Given Amlodipine Besylate (Norvasc) 10 mg PO DAILY [facility] Last Admin: 10/08/16 11:22 Dose: 10 mg Budesonide (Pulmicort Respules) 0.5 mg IH [id number] [facility] Last Admin: 10/08/16 20:58 Dose: 0.5 mg Enoxaparin Sodium (Lovenox) 50 mg SC Q12H [facility] PRN Reason: Protocol Last Admin: 10/08/16 22:27 Dose: 50 mg Ceftriaxone Sodium (Rocephin 1 Gram Ivpb) 1 gm in 100 mls @ 100 mls/hr IVPB DAILY [facility] PRN Reason: Protocol Last Admin: 10/08/16 11:20 Dose: 100 mls/hr Azithromycin (Zithromax 500mg In Ns) 500 mg in 250 mls @ 250 mls/hr IVPB Q24H [facility] PRN Reason: Protocol Last Admin: 10/08/16 11:21 Dose: 250 mls/hr Levalbuterol HCl (Xopenex) 0.63 mg IH [id number] [facility] Last Admin: 10/09/16 04:58 Dose: 0.63 mg Levalbuterol HCl (Xopenex) 0.63 mg IH Q2 PRN PRN Reason: Shortness of Breath Methylprednisolone (Solu-Medrol) 20 mg IVP Q12 [facility] Last Admin: 10/08/16 22:27 Dose: 20 mg Metoprolol Tartrate (Lopressor) 25 mg PO BID [facility] Last Admin: 10/08/16 17:03 Dose: 25 mg - Labs Labs: 10/08/16 05:20 10/08/16 05:20 PT 10.5 Seconds (9.9-11.8) 10/07/16 16:30 INR 0.97 (0.93-1.08) 10/07/16 16:30 APTT 29.6 Seconds (23.7-30.8) 10/07/16 16:30 - Constitutional Appears: Non-toxic, No Acute Distress - Head Exam Head Exam: NORMAL INSPECTION - ENT Exam ENT Exam: Mucous Membranes Moist - Neck Exam Neck Exam: absent: Meningismus - Respiratory Exam Respiratory Exam: Decreased Breath Sounds - Cardiovascular Exam Cardiovascular Exam: +S1, +S2 - GI/Abdominal Exam GI & Abdominal Exam: Soft. absent: Tenderness - Extremities Exam Additional comments: right antecubital area with some ecchymoses and swelling Assessment and Plan - Assessment and Plan (Free Text) Plan: Assessment Systemic Inflammatory Response Syndrome, R/O sepsis due to community-acquired pneumonia in this patient presenting with right lung complete opacification COPD right arm ecchymoses and swelling related to IV line site Plan continue Rocephin and Zithromax day 2; follow up PCT, blood cx follow up further Pulmonary recommendations will continue to monitor clinically
[2016-10-10] MEDS: Levalbuterol 0.63 MG/3 ML Inhal Soln UD IH SCH ×4 (02:05→20:17)
[2016-10-10] MEDS: Acetylcysteine 20% Inhal Soln (4ml) IH SCH ×4 (02:05→20:16)
[2016-10-10 07:02] LABS: GRAN # 7.62 (1.4-6.5); GRAN % 81.7 % (50.0-68.0); HEMOGLOBIN 11.3 gm/dL (12.0-16.0); LYMPH # 1.1 (1.2-3.4); LYMPH % 11.5 % (22.0-35.0); MEAN CELL VOLUME 83.7 fL (80.0-105.0); MEAN CORPUSCULAR HEMOGLOBIN 27.2 pg (25.0-35.0); MEAN CORPUSCULAR HGB CONC 32.5 g/dl (31.0-37.0); MEAN PLATELET VOLUME 9.3 fl (7.0-11.0); MONO # 0.6 (0.1-0.6); MONO % 6.8 % (1.0-6.0); PLATELET COUNT 415 10^3/uL (120.0-450.0); RBC 4.16 10^6/uL (3.5-6.1); RED CELL DISTRIBUTION WIDTH 13.5 % (11.5-14.5); WHITE BLOOD COUNT 9.3 10^3/ul (4.5-11.0)
[2016-10-10 07:30] LABS: BLOOD UREA NITROGEN 9 mg/dL (7-21); GFR AFRICAN-AMERICAN > 60; GFR NON-AFRICAN AMERICAN > 60
[2016-10-10 07:31] LABS: CALCIUM 8.7 mg/dL (8.4-10.5)
[2016-10-10] MEDS: Budesonide 0.5 mg/2 ml Inhal Susp UD IH SCH ×2 (07:59→20:16)
--- NOTE | 2016-10-10 08:25 | CP.PCM.PN ---
Subjective - Date & Time of Evaluation Date of Evaluation: 10/10/16 Time of Evaluation: 07:00 - Subjective Subjective: Stable on 2R. No CP. No SOB reported. V/S noted. RSR PE: Lungs: decreased BS right side Cor.: S1S2, soft Systolic murmur Abd.: soft Ext.: no edema Neuro.: alert I/O = 1540/[address] chest noted. Echo: NL LV fx., Mild MR, Mod. TR, Mod-Sev. PH Labs noted: Na+= 129 ECG 10/08: RSR, PRWP, NSSTW changes Objective - Vital Signs/Intake and Output Vital Signs (last 24 hours): Temp Pulse Resp BP Pulse Ox 97.8 F 92 H 20 135/56 L 97 10/10/16 06:00 10/10/16 06:00 10/10/16 06:00 10/10/16 06:00 10/10/16 06:00 Intake and Output: 10/10/16 10/10/16 06:59 18:59 Intake Total 1000 Output Total 600 Balance 400 - Medications Medications: Current Medications Acetylcysteine (Acetylcysteine 20%) 4 ml IH [id number] [facility] Last Admin: 10/10/16 07:59 Dose: 4 ml Amlodipine Besylate (Norvasc) 10 mg PO DAILY [facility] Last Admin: 10/09/16 09:30 Dose: 10 mg Budesonide (Pulmicort Respules) 0.5 mg IH [id number] [facility] Last Admin: 10/10/16 07:59 Dose: 0.5 mg Enoxaparin Sodium (Lovenox) 50 mg SC Q12H [facility] PRN Reason: Protocol Last Admin: 10/09/16 21:29 Dose: 50 mg Ceftriaxone Sodium (Rocephin 1 Gram Ivpb) 1 gm in 100 mls @ 100 mls/hr IVPB DAILY [facility] JANE PRN Reason: Protocol Last Admin: 10/09/16 09:32 Dose: 100 mls/hr Azithromycin (Zithromax 500mg In Ns) 500 mg in 250 mls @ 250 mls/hr IVPB Q24H [facility]ANE PRN Reason: Protocol Last Admin: 10/09/16 10:19 Dose: 250 mls/hr Levalbuterol HCl (Xopenex) 0.63 mg IH [id number] [facility] Last Admin: 10/10/16 07:59 Dose: 0.63 mg Levalbuterol HCl (Xopenex) 0.63 mg IH Q2 PRN PRN Reason: Shortness of Breath Methylprednisolone (Solu-Medrol) 20 mg IVP Q12 [facility] Last Admin: 10/09/16 21:27 Dose: 20 mg Metoprolol Tartrate (Lopressor) 50 mg PO BID [facility] Polyethylene Glycol (Miralax) 17 gm PO DAILY [facility] - Labs Labs: 10/10/16 06:15 10/10/16 06:15 PT 10.5 Seconds (9.9-11.8) 10/07/16 16:30 INR 0.97 (0.93-1.08) 10/07/16 16:30 APTT 29.6 Seconds (23.7-30.8) 10/07/16 16:30 Assessment and Plan - Assessment and Plan (Free Text) Assessment: Dyspnea Opacification of right lung with endobronchial lesion right main stem bronchus seen on CT, R/O lung cancer, pneumonia, mucous plug. Right pleural effusion Hyponatremia, possible SIADH COPD/Emphysema/Former Smoker PAF/Flutter HBP Glaucoma Plan: As per pulmonary. Thoracentesis soon. Possible FOB for tissue dx. As per ID. Check cultures Increase metoprolol to 50 BID OOB to chair as elvia.
[2016-10-10] MEDS: Enoxaparin 60 mg Syringe SC SCH ×2 (09:34→21:43)
[2016-10-10] MEDS: POLYETHYLENE GLYCOL 3350 17 GM/Dose PACKET PO SCH (09:35)
[2016-10-10] MEDS: cefTRIAXone 1 gm 1 GM/100 ML BAG IVPB SCH (09:36)
[2016-10-10] MEDS: MethylPREDNISolone 40 mg Vial IVP SCH ×2 (09:36→21:41)
--- NOTE | 2016-10-10 10:03 | PN ---
DATE: 10/10/2016 SUBJECTIVE: The patient appears more comfortable this morning. She is not short of breath at rest. She does appear weak and frail looking. PHYSICAL EXAMINATION VITAL SIGNS: Temperature is 97.8, pulse is 92, respirations 18, blood pressure 135/56. Oxygen saturation on nasal cannula is 97%. HEENT: Normocephalic, atraumatic. NECK: No JVD. CARDIOVASCULAR: Systolic ejection murmur at the lower left sternal border. No S3 gallop. LUNGS: Minimal/less rhonchi. Minimal/less wheezing. EXTREMITIES: No clubbing, cyanosis or edema. Calves are nontender to palpation. GASTROINTESTINAL: Abdomen is soft, nontender, and nondistended. Bowel sounds are positive. SKIN: No acute rash. NEUROLOGIC: Limited at the present time. IMPRESSION: 1. Mucus plug versus malignant endobronchial lesion - right mainstem bronchus. 2. Very large right pleural effusion. 3. Rule out underlying pneumonia. 4. Acute bronchitis. 5. Chronic obstructive pulmonary disease. 6. Cardiac arrhythmias. PLAN: The patient appears comfortable this morning. She is not short of breath at rest. She does state she is feeling better overall. However, she does remain weak and frail looking. I did discuss the case with the night nurse at length. The night nurse stated that the patient had a good night. On physical exam, her bronchospasm is certainly less. In addition, the oxygen saturation on nasal cannula is now 97%. I will continue the current nebulizer treatments and low dose intravenous steroids for now. I will also continue with the chest percussions therapy, suctioning, and Mucomyst. Repeat a.m. labs are pending. Thoracentesis is planned for tomorrow morning. Inputs by Cardiology and Infectious Disease are noted. Overall status/prognosis for this patient remains very guarded at best. I will discuss the above with the attending physician. Gabo Love MD MTDYvonne
--- NOTE | 2016-10-10 11:12 | CP.PCM.PN ---
Subjective - Date & Time of Evaluation Date of Evaluation: 10/10/16 Time of Evaluation: 09:50 - Subjective Subjective: No fevers overnight, no shortness of breath at rest, right arm feels better. Objective - Vital Signs/Intake and Output Vital Signs (last 24 hours): Temp Pulse Resp BP Pulse Ox 97.8 F 92 H 20 135/56 L 97 10/10/16 06:00 10/10/16 06:00 10/10/16 06:00 10/10/16 06:00 10/10/16 06:00 Intake and Output: 10/09/16 10/10/16 18:59 06:59 Intake Total 540 1000 Output Total 500 600 Balance 40 400 - Medications Medications: Current Medications Acetylcysteine (Acetylcysteine 20%) 4 ml IH [id number] [facility] Last Admin: 10/10/16 02:05 Dose: Not Given Amlodipine Besylate (Norvasc) 10 mg PO DAILY [facility] Last Admin: 10/09/16 09:30 Dose: 10 mg Budesonide (Pulmicort Respules) 0.5 mg IH [id number] [facility] Last Admin: 10/09/16 20:00 Dose: 0.5 mg Enoxaparin Sodium (Lovenox) 50 mg SC Q12H [facility] PRN Reason: Protocol Last Admin: 10/09/16 21:29 Dose: 50 mg Ceftriaxone Sodium (Rocephin 1 Gram Ivpb) 1 gm in 100 mls @ 100 mls/hr IVPB DAILY [facility]ANE PRN Reason: Protocol Last Admin: 10/09/16 09:32 Dose: 100 mls/hr Azithromycin (Zithromax 500mg In Ns) 500 mg in 250 mls @ 250 mls/hr IVPB Q24H [facility] PRN Reason: Protocol Last Admin: 10/09/16 10:19 Dose: 250 mls/hr Levalbuterol HCl (Xopenex) 0.63 mg IH [id number] [facility] Last Admin: 10/10/16 02:05 Dose: Not Given Levalbuterol HCl (Xopenex) 0.63 mg IH Q2 PRN PRN Reason: Shortness of Breath Methylprednisolone (Solu-Medrol) 20 mg IVP Q12 [facility] Last Admin: 10/09/16 21:27 Dose: 20 mg Metoprolol Tartrate (Lopressor) 25 mg PO TID [facility] Last Admin: 10/09/16 17:26 Dose: 25 mg Polyethylene Glycol (Miralax) 17 gm PO DAILY [facility] - Labs Labs: 10/09/16 07:18 10/09/16 07:18 PT 10.5 Seconds (9.9-11.8) 10/07/16 16:30 INR 0.97 (0.93-1.08) 10/07/16 16:30 APTT 29.6 Seconds (23.7-30.8) 10/07/16 16:30 - Constitutional Appears: Non-toxic, No Acute Distress - Head Exam Head Exam: NORMAL INSPECTION - ENT Exam ENT Exam: Mucous Membranes Moist - Neck Exam Neck Exam: absent: Lymphadenopathy, Meningismus - Respiratory Exam Respiratory Exam: Decreased Breath Sounds (on the right lung joy) - Cardiovascular Exam Cardiovascular Exam: +S1, +S2 - GI/Abdominal Exam GI & Abdominal Exam: Soft. absent: Tenderness Assessment and Plan - Assessment and Plan (Free Text) Plan: Assessment Systemic Inflammatory Response Syndrome, R/O sepsis due to community-acquired pneumonia with associated right sided pleural effusion in this patient presenting with right lung complete opacification with right bronchial obstruction R/O mass vs. mucus pluggin COPD right arm ecchymoses and swelling related to IV line site Plan continue Rocephin and Zithromax day 3; PCT is <0.05, blood cx are negative for thoracentesis tomorrow and will follow up pleural fluid analysis and cultures will continue to monitor clinically
[2016-10-10] MEDS: Azithromycin 500MG/NS 250ml 500 MG/250 ML BAG IVPB SCH (12:33)
--- NOTE | 2016-10-10 23:59 | CP.PCM.PN ---
Subjective - Date & Time of Evaluation Date of Evaluation: 10/10/16 Time of Evaluation: 12:00 - Subjective Subjective: Breathing improved. Sitting comfortably in chair. Oral intake poor. No difficulty in swallowing. Not ambulating. Objective - Vital Signs/Intake and Output Vital Signs (last 24 hours): Temp Pulse Resp BP Pulse Ox 98.3 F 89 18 121/65 97 10/10/16 16:51 10/10/16 16:51 10/10/16 16:51 10/10/16 16:51 10/10/16 10:28 Intake and Output: 10/10/16 10/11/16 18:59 06:59 Intake Total 480 Output Total 700 Balance -220 - Medications Medications: Current Medications Acetylcysteine (Acetylcysteine 20%) 4 ml IH [id number] [facility] Last Admin: 10/10/16 20:16 Dose: 4 ml Amlodipine Besylate (Norvasc) 10 mg PO DAILY [facility] Last Admin: 10/10/16 09:35 Dose: 10 mg Budesonide (Pulmicort Respules) 0.5 mg IH [id number] [facility] Last Admin: 10/10/16 20:16 Dose: 0.5 mg Enoxaparin Sodium (Lovenox) 50 mg SC Q12H [facility] PRN Reason: Protocol Last Admin: 10/10/16 21:43 Dose: 50 mg Ceftriaxone Sodium (Rocephin 1 Gram Ivpb) 1 gm in 100 mls @ 100 mls/hr IVPB DAILY [facility] PRN Reason: Protocol Last Admin: 10/10/16 09:36 Dose: 100 mls/hr Azithromycin (Zithromax 500mg In Ns) 500 mg in 250 mls @ 250 mls/hr IVPB Q24H [facility] PRN Reason: Protocol Last Admin: 10/10/16 12:33 Dose: 250 mls/hr Levalbuterol HCl (Xopenex) 0.63 mg IH [id number] [facility] Last Admin: 10/10/16 20:17 Dose: 0.63 mg Levalbuterol HCl (Xopenex) 0.63 mg IH Q2 PRN PRN Reason: Shortness of Breath Methylprednisolone (Solu-Medrol) 20 mg IVP Q12 [facility] Last Admin: 10/10/16 21:41 Dose: 20 mg Metoprolol Tartrate (Lopressor) 50 mg PO BID [facility] Last Admin: 10/10/16 17:43 Dose: 50 mg Polyethylene Glycol (Miralax) 17 gm PO DAILY [facility] Last Admin: 10/10/16 09:35 Dose: Not Given - Labs Labs: 10/10/16 06:15 10/10/16 06:15 PT 10.5 Seconds (9.9-11.8) 10/07/16 16:30 INR 0.97 (0.93-1.08) 10/07/16 16:30 APTT 29.6 Seconds (23.7-30.8) 10/07/16 16:30 - Constitutional Appears: Non-toxic, Confused - Head Exam Head Exam: ATRAUMATIC - Eye Exam Eye Exam: Normal appearance Pupil Exam: NORMAL ACCOMODATION - ENT Exam ENT Exam: Mucous Membranes Moist, Normal Exam - Neck Exam Neck Exam: Normal Inspection - Respiratory Exam Respiratory Exam: Decreased Breath Sounds - Cardiovascular Exam Cardiovascular Exam: REGULAR RHYTHM, +S1, +S2 - GI/Abdominal Exam GI & Abdominal Exam: Soft, Normal Bowel Sounds - Extremities Exam Extremities Exam: Normal Inspection - Back Exam Back Exam: NORMAL INSPECTION - Neurological Exam Neurological Exam: Alert, Awake - Psychiatric Exam Psychiatric exam: Normal Mood - Skin Skin Exam: Normal Color, Warm Assessment and Plan - Assessment and Plan (Free Text) Assessment: 1. Right lung collapse. 2. COPD 3. Anemia 4. Right pleural effusion Plan : Thoracocentesis scheduled for tomorrow. Breathing improved. Possible endobronchial lesion. right lung collapse. Blood counts stable. Encourage ambulation. DVT prophylaxis.
--- NOTE | 2016-10-11 00:59 | PN ---
DATE: 10/09/2016 HISTORY OF PRESENT ILLNESS: The patient is 86-year-old female admitted with shortness of breath. She has right lung collapse, possibility of right endobronchial lesion. She has history of COPD, CHF, emphysema. Breathing has improved during hospitalization. Denies any cough with expectoration. No hemoptysis. No weight loss. She is currently on IV antibiotics. Oral intake is poor, although able to swallow without difficulty. She has history of CHF also. No exacerbation. PAST MEDICAL HISTORY: Hypertension, COPD, CHF, emphysema. PAST SURGICAL HISTORY: Unknown. SOCIAL HISTORY: Former tobacco user. Denies any alcohol abuse. Lives at home with daughter. She was ambulating at home. REVIEW OF SYSTEMS: As per HPI. Rest of the 12-point review of systems reviewed and negative. ALLERGIES: NO KNOWN DRUG ALLERGIES. PHYSICAL EXAMINATION GENERAL: Sitting comfortably in chair in no acute distress. VITAL SIGNS: Blood pressure 142/80, temperature 97.8, heart rate is 94 per minute. HEENT: Normal. Pallor positive. NECK: No lymphadenopathy. CHEST: . MEDICATIONS: Tylenol 650 q. 6 hours p.r.n., Norvasc 10 mg daily, Zithromax, ceftriaxone, Xopenex, Solu-Medrol 20 q. 12, Lopressor 50 mg b.i.d., Miralax 17 g daily. ASSESSMENT: 1. Right pleural effusion. 2. Right lung collapse, possible endobronchial lesion. 3. Chronic obstructive pulmonary disease. 4. Congestive heart failure. PLAN: We will continue bronchodilator, continue IV antibiotics. She will benefit from bronchoscopy, but because of the advanced stage and multiple comorbid condition, she might not be a candidate for anesthesia. Right pleural effusion might give meaningful information in terms of malignancy. It might help with shortness of breath also. Right thoracocentesis scheduled for Tuesday. Family is at bedside, discussed with the family. No differential diagnosis. Discussed the finding of the CAT scan of the chest done yesterday. They are in agreement with the plan. Pulmonary, Dr. Love following the patient at the consult and Dr. Pineda following from cardiology. Collette Rodriguez MD
[2016-10-11] MEDS: Acetylcysteine 20% Inhal Soln (4ml) IH SCH ×4 (02:15→20:33)
[2016-10-11] MEDS: Levalbuterol 0.63 MG/3 ML Inhal Soln UD IH SCH ×4 (02:15→20:33)
[2016-10-11 06:06] LABS: GRAN # 7.82 (1.4-6.5); GRAN % 84.7 % (50.0-68.0); HEMOGLOBIN 11.3 gm/dL (12.0-16.0); LYMPH # 0.8 (1.2-3.4); LYMPH % 8.7 % (22.0-35.0); MEAN CELL VOLUME 84.8 fL (80.0-105.0); MEAN CORPUSCULAR HEMOGLOBIN 27.2 pg (25.0-35.0); MEAN CORPUSCULAR HGB CONC 32.1 g/dl (31.0-37.0); MEAN PLATELET VOLUME 9.3 fl (7.0-11.0); MONO # 0.6 (0.1-0.6); MONO % 6.6 % (1.0-6.0); PLATELET COUNT 412 10^3/uL (120.0-450.0); RBC 4.15 10^6/uL (3.5-6.1); RED CELL DISTRIBUTION WIDTH 13.7 % (11.5-14.5); WHITE BLOOD COUNT 9.2 10^3/ul (4.5-11.0)
[2016-10-11 06:17] LABS: BLOOD UREA NITROGEN 12 mg/dL (7-21); CALCIUM 8.7 mg/dL (8.4-10.5); GFR AFRICAN-AMERICAN > 60; GFR NON-AFRICAN AMERICAN > 60
[2016-10-11] MEDS: Budesonide 0.5 mg/2 ml Inhal Susp UD IH SCH ×2 (07:37→20:33)
--- NOTE | 2016-10-11 08:12 | CP.PCM.PN ---
Subjective - Date & Time of Evaluation Date of Evaluation: 10/11/16 Time of Evaluation: 07:00 - Subjective Subjective: Stable on 2R. No CP. No SOB reported. V/S noted. RSR <> A. Flutter with mod VR PE: Lungs: decreased BS right side Cor.: S1S2, soft Systolic murmur Abd.: soft Ext.: no edema Neuro.: alert I/O = 720/[address] chest noted. Echo: NL LV fx., Mild MR, Mod. TR, Mod-Sev. PH Labs noted: Na+= 131 ECG 10/08: RSR, PRWP, NSSTW changes Objective - Vital Signs/Intake and Output Vital Signs (last 24 hours): Temp Pulse Resp BP Pulse Ox 98.2 F 98 H 18 113/58 L 96 10/11/16 06:00 10/11/16 06:00 10/11/16 06:00 10/11/16 06:00 10/11/16 06:00 Intake and Output: 10/11/16 10/11/16 06:59 18:59 Intake Total 240 Output Total 200 Balance 40 - Medications Medications: Current Medications Acetylcysteine (Acetylcysteine 20%) 4 ml IH [id number] [facility] Last Admin: 10/11/16 07:37 Dose: 4 ml Amlodipine Besylate (Norvasc) 10 mg PO DAILY [facility] Last Admin: 10/10/16 09:35 Dose: 10 mg Budesonide (Pulmicort Respules) 0.5 mg IH [id number] [facility] Last Admin: 10/11/16 07:37 Dose: 0.5 mg Enoxaparin Sodium (Lovenox) 50 mg SC Q12H [facility] JANE PRN Reason: Protocol Last Admin: 10/10/16 21:43 Dose: 50 mg Ceftriaxone Sodium (Rocephin 1 Gram Ivpb) 1 gm in 100 mls @ 100 mls/hr IVPB DAILY [facility]ANE PRN Reason: Protocol Last Admin: 10/10/16 09:36 Dose: 100 mls/hr Azithromycin (Zithromax 500mg In Ns) 500 mg in 250 mls @ 250 mls/hr IVPB Q24H [facility] PRN Reason: Protocol Last Admin: 10/10/16 12:33 Dose: 250 mls/hr Levalbuterol HCl (Xopenex) 0.63 mg IH [id number] [facility] Last Admin: 10/11/16 07:37 Dose: 0.63 mg Levalbuterol HCl (Xopenex) 0.63 mg IH Q2 PRN PRN Reason: Shortness of Breath Methylprednisolone (Solu-Medrol) 20 mg IVP Q12 [facility] Last Admin: 10/10/16 21:41 Dose: 20 mg Metoprolol Tartrate (Lopressor) 50 mg PO BID [facility] Last Admin: 10/10/16 17:43 Dose: 50 mg Polyethylene Glycol (Miralax) 17 gm PO DAILY [facility] Last Admin: 10/10/16 09:35 Dose: Not Given - Labs Labs: 10/11/16 05:20 10/11/16 05:20 PT 10.5 Seconds (9.9-11.8) 10/07/16 16:30 INR 0.97 (0.93-1.08) 10/07/16 16:30 APTT 29.6 Seconds (23.7-30.8) 10/07/16 16:30 Assessment and Plan - Assessment and Plan (Free Text) Assessment: Dyspnea Opacification of right lung with endobronchial lesion right main stem bronchus seen on CT, R/O lung cancer, pneumonia, mucous plug. Right pleural effusion Hyponatremia, possible SIADH, improving COPD/Emphysema/Former Smoker PAF/Flutter HBP Glaucoma Plan: As per pulmonary, int radiology. Thoracentesis today. Possible FOB for tissue dx.if necessary. Hold Lovenox this AM. As per ID. Check cultures Continue metoprolol 50 BID OOB
--- NOTE | 2016-10-11 09:39 | CP.PCM.PN ---
<Jennifer Cruz - Last Filed: 10/11/16 12:31> Subjective - Date & Time of Evaluation Date of Evaluation: 10/11/16 Time of Evaluation: 08:45 - Subjective Subjective: Progress note for Dr Eugene ríos. Patient lying comfortably on the bed, in no acute distress. Patient states the sob has resolved, denies cp. Patient states the cough has improved, denies fever or chills. Denies n.v.d. Admits to occasional palpitations. Wearing her nasal cannula, saturating 96% on 3 litters. Objective - Vital Signs/Intake and Output Vital Signs (last 24 hours): Temp Pulse Resp BP Pulse Ox 98.2 F 98 H 18 113/58 L 96 10/11/16 06:00 10/11/16 06:00 10/11/16 06:00 10/11/16 06:00 10/11/16 06:00 Intake and Output: 10/11/16 10/11/16 06:59 18:59 Intake Total 240 Output Total 200 Balance 40 - Medications Medications: Current Medications Acetylcysteine (Acetylcysteine 20%) 4 ml IH [id number] [facility] Last Admin: 10/11/16 07:37 Dose: 4 ml Amlodipine Besylate (Norvasc) 10 mg PO DAILY [facility] Last Admin: 10/10/16 09:35 Dose: 10 mg Budesonide (Pulmicort Respules) 0.5 mg IH [id number] [facility] Last Admin: 10/11/16 07:37 Dose: 0.5 mg Enoxaparin Sodium (Lovenox) 50 mg SC Q12H [facility] PRN Reason: Protocol Last Admin: 10/10/16 21:43 Dose: 50 mg Ceftriaxone Sodium (Rocephin 1 Gram Ivpb) 1 gm in 100 mls @ 100 mls/hr IVPB DAILY [facility] PRN Reason: Protocol Last Admin: 10/10/16 09:36 Dose: 100 mls/hr Azithromycin (Zithromax 500mg In Ns) 500 mg in 250 mls @ 250 mls/hr IVPB Q24H [facility] PRN Reason: Protocol Last Admin: 10/10/16 12:33 Dose: 250 mls/hr Levalbuterol HCl (Xopenex) 0.63 mg IH [id number] [facility] Last Admin: 10/11/16 07:37 Dose: 0.63 mg Levalbuterol HCl (Xopenex) 0.63 mg IH Q2 PRN PRN Reason: Shortness of Breath Methylprednisolone (Solu-Medrol) 20 mg IVP Q12 [facility] Last Admin: 10/10/16 21:41 Dose: 20 mg Metoprolol Tartrate (Lopressor) 50 mg PO BID [facility] Last Admin: 10/10/16 17:43 Dose: 50 mg Polyethylene Glycol (Miralax) 17 gm PO DAILY [facility] Last Admin: 10/10/16 09:35 Dose: Not Given - Labs Labs: 10/11/16 05:20 10/11/16 05:20 PT 10.5 Seconds (9.9-11.8) 10/07/16 16:30 INR 0.97 (0.93-1.08) 10/07/16 16:30 APTT 29.6 Seconds (23.7-30.8) 10/07/16 16:30 - Constitutional Appears: No Acute Distress, Cachectic, Chronically Ill - Head Exam Head Exam: ATRAUMATIC, NORMAL INSPECTION, NORMOCEPHALIC - Eye Exam Eye Exam: EOMI, Normal appearance, PERRL. absent: Scleral icterus Pupil Exam: NORMAL ACCOMODATION, PERRL - ENT Exam ENT Exam: Mucous Membranes Moist - Neck Exam Neck Exam: Normal Inspection - Respiratory Exam Respiratory Exam: Decreased Breath Sounds (om the right side), NORMAL BREATHING PATTERN. absent: Rales, Rhonchi, Wheezes, Respiratory Distress, Stridor - Cardiovascular Exam Cardiovascular Exam: Irregular Rhythm, +S1, +S2. absent: Murmur - GI/Abdominal Exam GI & Abdominal Exam: Soft, Normal Bowel Sounds. absent: Distended, Firm, Guarding, Rigid, Tenderness - Extremities Exam Extremities Exam: Normal Inspection - Back Exam Back Exam: NORMAL INSPECTION - Neurological Exam Neurological Exam: Alert, Awake, Oriented x3 - Psychiatric Exam Psychiatric exam: Normal Affect, Normal Mood - Skin Skin Exam: Abrasion, Dry, Warm Assessment and Plan - Assessment and Plan (Free Text) Assessment: 1) Complete right lung opacification with obstruction of right bronchus on CT, mucus plug versus lung ca versus pna. 2) Right large pleural effusion. 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 9) IV site- right arm ecchymosis and edema Plan: Patient is scheduled for thoracentesis today. On Rocephin and Zithromax. No growth on bcx. no leukocytosis. ID, Pulm and cardio following. Hyponatremia improving On mucomyst, pulmocort, xoponex and tapering dose solumedrol for bronchitis. Will continue Norvasc for htn, Lopressor and Lovenox for afib/flutter. Patient seen, examined, and case discussed with Dr Knight. <Rick Knight S - Last Filed: 10/11/16 17:42> Objective - Vital Signs/Intake and Output Vital Signs (last 24 hours): Temp Pulse Resp BP Pulse Ox 97.2 F L 85 19 115/69 96 10/11/16 12:00 10/11/16 14:00 10/11/16 12:00 10/11/16 12:00 10/11/16 06:00 Intake and Output: 10/11/16 10/11/16 06:59 18:59 Intake Total 240 Output Total 200 Balance 40 - Medications Medications: Current Medications Acetylcysteine (Acetylcysteine 20%) 4 ml IH [id number] [facility] Last Admin: 10/11/16 16:19 Dose: 4 ml Amlodipine Besylate (Norvasc) 10 mg PO DAILY [facility] Last Admin: 10/11/16 11:16 Dose: 10 mg Budesonide (Pulmicort Respules) 0.5 mg IH [id number] [facility] Last Admin: 10/11/16 07:37 Dose: 0.5 mg Enoxaparin Sodium (Lovenox) 50 mg SC Q12H [facility] PRN Reason: Protocol Last Admin: 10/10/16 21:43 Dose: 50 mg Famotidine (Pepcid) 40 mg PO HS [facility] Ceftriaxone Sodium (Rocephin 1 Gram Ivpb) 1 gm in 100 mls @ 100 mls/hr IVPB DAILY [facility] PRN Reason: Protocol Last Admin: 10/11/16 11:18 Dose: 100 mls/hr Azithromycin (Zithromax 500mg In Ns) 500 mg in 250 mls @ 250 mls/hr IVPB Q24H [facility] PRN Reason: Protocol Last Admin: 10/11/16 11:20 Dose: 250 mls/hr Levalbuterol HCl (Xopenex) 0.63 mg IH [id number] [facility] Last Admin: 10/11/16 16:19 Dose: 0.63 mg Levalbuterol HCl (Xopenex) 0.63 mg IH Q2 PRN PRN Reason: Shortness of Breath Methylprednisolone (Solu-Medrol) 20 mg IVP Q12 [facility] Last Admin: 10/11/16 11:19 Dose: 20 mg Metoprolol Tartrate (Lopressor) 50 mg PO BID [facility] Last Admin: 10/11/16 11:16 Dose: 50 mg Polyethylene Glycol (Miralax) 17 gm PO DAILY [facility] Last Admin: 10/11/16 11:18 Dose: Not Given - Labs Labs: 10/11/16 05:20 10/11/16 05:20 PT 10.5 Seconds (9.9-11.8) 10/07/16 16:30 INR 0.97 (0.93-1.08) 10/07/16 16:30 APTT 29.6 Seconds (23.7-30.8) 10/07/16 16:30 Assessment and Plan - Assessment and Plan (Free Text) Plan: Pt seen and examined. Reviewed the note by the resident and I do agree with it. Spoke to daughter to update. Spoke with Dr Love. He will also speak with family.
--- NOTE | 2016-10-11 11:08 | PN ---
DATE: 10/11/2016 SUBJECTIVE: The patient appears comfortable at rest. She is not short of breath. She remains weak and frail looking. PHYSICAL EXAMINATION VITAL SIGNS: Temperature 98.2, pulse 98, respirations 18, blood pressure 113/58. Oxygen saturation on nasal cannula is 96%. HEENT: Normocephalic, atraumatic. NECK: No JVD. CARDIOVASCULAR: Systolic ejection murmur at the lower left sternal border. No S3 gallop. LUNGS: Much less rhonchi. A few end-expiratory wheezes. EXTREMITIES: No clubbing, cyanosis, or edema. Calves are nontender to palpation. GASTROINTESTINAL: Abdomen is soft, nontender, nondistended. Bowel sounds are positive. SKIN: No acute rash. NEUROLOGIC: Exam is limited at the present time. IMPRESSION: 1. Mucus plug versus malignant endobronchial lesion-right mainstem bronchus. 2. Very large right pleural effusion. 3. Rule out underlying pneumonia. 4. Acute bronchitis. 5. Chronic obstructive pulmonary disease. 6. Cardiac arrhythmias. PLAN: The patient appears comfortable this morning. She is not short of breath at rest. She does remain weak and frail looking. On physical exam, there is less bronchospasm noted. I will continue with the current nebulizer treatments and low-dose intravenous steroids for now. I will also continue with the aggressive pulmonary toilet. The patient did undergo deep suctioning by respiratory therapy yesterday. I did discuss the process with the respiratory therapist at length. A specimen was obtained and sent for cytology. The patient is also scheduled for a thoracentesis later this morning. I did review the notes by Dr. Rodriguez. I agree with her in that-- bronchoscopy with anesthesia holds significant risks(including ) . The patient is at a very advanced age, and has over a 100-pack year history of smoking. In addition, the patient remains in mild bronchospasm and did present with CO2 retention. Also, the patient remains in and out of atrial fibrillation/atrial flutter (discussed with the nurse this morning). The patient also had an episode of ventricular tachycardia a few nights ago. Hopefully, we will have some meaningful results from the sputum sample, or the thoracentesis. The patient should be more comfortable after the thoracentesis. Again, she remains very weak and frail looking. I will discuss the above with the attending physician this morning, and also try to touch base with the family. Gabo Love MD KEL[facility]
--- NOTE | 2016-10-11 11:16 | CP.PCM.PN ---
Subjective - Date & Time of Evaluation Date of Evaluation: 10/11/16 Time of Evaluation: 08:45 - Subjective Subjective: Comfortable in bed, not in distress, afebrile, no SOB at rest. Objective - Vital Signs/Intake and Output Vital Signs (last 24 hours): Temp Pulse Resp BP Pulse Ox 98.2 F 98 H 18 113/58 L 96 10/11/16 06:00 10/11/16 06:00 10/11/16 06:00 10/11/16 06:00 10/11/16 06:00 Intake and Output: 10/11/16 10/11/16 06:59 18:59 Intake Total 240 Output Total 200 Balance 40 - Medications Medications: Current Medications Acetylcysteine (Acetylcysteine 20%) 4 ml IH [id number] [facility] Last Admin: 10/11/16 07:37 Dose: 4 ml Amlodipine Besylate (Norvasc) 10 mg PO DAILY [facility] Last Admin: 10/10/16 09:35 Dose: 10 mg Budesonide (Pulmicort Respules) 0.5 mg IH [id number] [facility] Last Admin: 10/11/16 07:37 Dose: 0.5 mg Enoxaparin Sodium (Lovenox) 50 mg SC Q12H MARY JANE PRN Reason: Protocol Last Admin: 10/10/16 21:43 Dose: 50 mg Ceftriaxone Sodium (Rocephin 1 Gram Ivpb) 1 gm in 100 mls @ 100 mls/hr IVPB DAILY MARY JANE PRN Reason: Protocol Last Admin: 10/10/16 09:36 Dose: 100 mls/hr Azithromycin (Zithromax 500mg In Ns) 500 mg in 250 mls @ 250 mls/hr IVPB Q24H MARY JANE PRN Reason: Protocol Last Admin: 10/10/16 12:33 Dose: 250 mls/hr Levalbuterol HCl (Xopenex) 0.63 mg IH [id number] [facility] Last Admin: 10/11/16 07:37 Dose: 0.63 mg Levalbuterol HCl (Xopenex) 0.63 mg IH Q2 PRN PRN Reason: Shortness of Breath Methylprednisolone (Solu-Medrol) 20 mg IVP Q12 MARY JANE Last Admin: 10/10/16 21:41 Dose: 20 mg Metoprolol Tartrate (Lopressor) 50 mg PO BID [facility] Last Admin: 10/10/16 17:43 Dose: 50 mg Polyethylene Glycol (Miralax) 17 gm PO DAILY MARY JANE Last Admin: 10/10/16 09:35 Dose: Not Given - Labs Labs: 10/11/16 05:20 10/11/16 05:20 PT 10.5 Seconds (9.9-11.8) 10/07/16 16:30 INR 0.97 (0.93-1.08) 10/07/16 16:30 APTT 29.6 Seconds (23.7-30.8) 10/07/16 16:30 - Constitutional Appears: Non-toxic, No Acute Distress - Head Exam Head Exam: NORMAL INSPECTION - ENT Exam ENT Exam: Mucous Membranes Moist - Neck Exam Neck Exam: absent: Meningismus - Respiratory Exam Respiratory Exam: Decreased Breath Sounds (on the right side) - Cardiovascular Exam Cardiovascular Exam: +S1, +S2 - GI/Abdominal Exam GI & Abdominal Exam: Soft. absent: Tenderness Assessment and Plan - Assessment and Plan (Free Text) Plan: Assessment Systemic Inflammatory Response Syndrome, R/O sepsis due to community-acquired pneumonia with associated right sided pleural effusion in this patient presenting with right lung complete opacification with right bronchial obstruction R/O malignancy vs. mucus plugging COPD right arm ecchymoses and swelling related to IV line site Plan continue Rocephin and Zithromax day 4; PCT is <0.05, blood cx are negative - will target 5-7 days of antibiotics follow up thoracentesis with pleural fluid analysis and cultures will continue to monitor clinically Discussed with Dr. Love
[2016-10-11] MEDS: cefTRIAXone 1 gm 1 GM/100 ML BAG IVPB SCH (11:18)
[2016-10-11] MEDS: POLYETHYLENE GLYCOL 3350 17 GM/Dose PACKET PO SCH (11:18)
[2016-10-11] MEDS: MethylPREDNISolone 40 mg Vial IVP SCH ×2 (11:19→22:16)
[2016-10-11] MEDS: Azithromycin 500MG/NS 250ml 500 MG/250 ML BAG IVPB SCH (11:20)
[2016-10-11] MEDS ORDERED: Iohexol 350 MG/100 ML VIAL ONE (13:58)
--- NOTE | 2016-10-11 15:06 | CT ---
PROCEDURE: CT Chest with contrast HISTORY: rt hilar mass. Post rt thora. 50cc contr/50cc NS COMPARISON: None. TECHNIQUE: Contiguous axial images were obtained through the chest with intravenous contrast enhancement. Sagittal and coronal reconstructions were performed. IV contrast: 50 cc Omni 350 Radiation dose (DLP): 285 mGy-cm. This CT exam was performed using one or more of the following dose reduction techniques: Automated exposure control, adjustment of the mA and/or kV according to patient size, and/or use of iterative reconstruction technique. FINDINGS: LUNGS: Atelectasis of the right lung. Endobronchial lesion on the right MEDIASTINUM: Unremarkable thoracic aorta. No aneurysm or dissection. Normal sized heart. There is encasement of the right main pulmonary artery by hilar and mediastinal adenopathy. It is difficult to delineate the adenopathy adjacent to the collapsed lung. The hilar adenopathy is approximately 5 cm in diameter as seen on image 59 series 2 PLEURA: There is a small amount of air in the pleural space following thoracentesis. There is still a large right pleural effusion BONES: No fracture. No destructive lesion. UPPER ABDOMEN: Grossly unremarkable. OTHER FINDINGS: None. IMPRESSION: Complete obstruction right mainstem bronchus. Extensive right hilar adenopathy which encases the right main pulmonary artery. Complete atelectasis of right lung Persistent large effusion. Small amount of air in the pleural space post thoracentesis
[2016-10-11 15:10] LABS: BODY FLUID TYPE PLEURAL
[2016-10-11 15:37] LABS: BF GROSS APPEARANCE CLEAR (CLEAR); BODY FLUID MONO/MACROPHAGE 0 % (0-0); BODY FLUID TOTAL COUNT 100 (0-0)
--- NOTE | 2016-10-11 16:10 | US ---
PROCEDURE: Ultrasound guided right thoracentesis. CLINICAL HISTORY: Large right pleural effusions. Probable right hilar mass. ? Malignant effusion PHYSICIAN(S): Skyler Hillamn MD. TECHNIQUE: The relative risks and indications of the procedure were explained to the patient and consent obtained. The patient was placed in a sitting position on the stretcher and sonography of the right chest performed. This revealed a moderate to large rightpleural effusion. A right posterolateral intercostal approach was selected and the area prepped and draped usual sterile fashion. 1% Xylocaine was used to anesthetize the skin and soft tissues. A 7 Azeri thoracentesis catheter was trocared into the right pleural cavity and 1500ccof clear straw-colored fluid aspirated. Specimens were sent to the lab. IMPRESSION: 1. Ultrasound guided right thoracentesis. 1500cc of clear, straw-colored fluid were aspirated. A postprocedure chest CT will be obtained to evaluate the right hilum.
[2016-10-12] MEDS: Acetylcysteine 20% Inhal Soln (4ml) IH SCH ×4 (02:40→20:10)
[2016-10-12] MEDS: Levalbuterol 0.63 MG/3 ML Inhal Soln UD IH SCH ×4 (02:41→20:10)
[2016-10-12 06:18] LABS: BASO # 0.03 K/mm3 (0.0-2.0); BASO % 0.4 % (0.0-3.0); EOS # 0.1 (0.0-0.7); EOS % 1.9 % (1.5-5.0); GRAN # 3.53 (1.4-6.5); GRAN % 50.7 % (50.0-68.0); HEMOGLOBIN 11.7 g/dL (12.0-16.0); LYMPH # 2.5 (1.2-3.4); LYMPH % 35.6 % (22.0-35.0); MEAN CELL VOLUME 89.9 fl (80.0-105.0); MEAN CORPUSCULAR HEMOGLOBIN 29.5 pg (25.0-35.0); MEAN CORPUSCULAR HGB CONC 32.9 g/dl (31.0-37.0); MEAN PLATELET VOLUME 11.5 fl (7.0-11.0); MONO # 0.8 (0.1-0.6); MONO % 11.4 % (1.0-6.0); PLATELET COUNT 200 10^3/uL (120.0-450.0); RBC 3.96 10^6/uL (3.5-6.1); RED CELL DISTRIBUTION WIDTH 13.9 % (11.5-14.5)
[2016-10-12] MEDS: Budesonide 0.5 mg/2 ml Inhal Susp UD IH SCH ×2 (07:35→20:10)
--- NOTE | 2016-10-12 07:48 | PN ---
DATE: 10/12/2016 SUBJECTIVE: The patient is comfortable at the present time. She is not short of breath at rest. She remains weak and frail looking. PHYSICAL EXAMINATION: VITAL SIGNS: Temperature is 98.4, pulse is 83, respirations 19, blood pressure 130/64. Oxygen saturation on nasal cannula is 95%. HEENT: Normocephalic, atraumatic. NECK: No JVD. CARDIOVASCULAR: Systolic ejection murmur at the lower left sternal border. No S3 gallop. LUNGS: Minimal/less rhonchi. No wheezing this morning. EXTREMITIES: No clubbing, cyanosis, or edema. Calves are nontender to palpation. GASTROINTESTINAL: Abdomen is soft, nontender, nondistended. Bowel sounds are positive. SKIN: No acute rash. NEUROLOGIC: Limited at the present time. PERTINENT LABORATORY DATA: CAT scan of the chest was done after the thoracentesis yesterday. I did discuss the CAT scan findings with Dr. Skyler Hillman at length. After removal of the fluid, a large right hilar mass/conglomerate of adenopathy is now evident. The adenopathy/mass incases the right pulmonary artery. There is also extensive mediastinal adenopathy. There remains obstruction of the right main stem bronchus, atelectasis of the right lung, and persistent large effusion. IMPRESSION: 1. Advanced lung cancer. 2. Very large right pleural effusion. 3. Rule out underlying pneumonia. 4. Acute bronchitis. 5. Chronic obstructive pulmonary disease. 6. Cardiac arrhythmias. PLAN: The patient appears comfortable this morning. She is not short of breath at rest. She remains weak and frail looking. On physical exam, there is a continued decrease in the bronchospasm. In addition, the oxygen saturation on nasal cannula is now 95%. I will continue with the current nebulizer treatments and change the oral steroids this morning. As above, I did discuss the CAT scan findings (after the thoracenteses) with Dr. Skyler Hillman at length. Now evident, is a large right hilar mass/conglomerate of adenopathy. The extensive right hilar adenopathy incases the right pulmonary artery. There is also extensive mediastinal adenopathy. These findings are almost certainly consistent with advanced malignancy. I did discuss the case with the daughter, Char, at length yesterday. She firmly stated that her mother (the patient), would NOT be agreeable to any treatment (whether it be chemotherapy or radiation). The latest CAT scan findings do shed significant light on the probable diagnosis. Pleural fluid cytology is pending. The patient also had a sputum sample sent 2 days ago-cytology also pending. Again, I did discuss the case with Dr. Skyler Hillman at length. Dr. Hillman did say, that if necessary, he can try a biopsy (without anesthesia). However, at this point, it may be prudent to treat the patient conservatively. I will discuss the above with the daughter (Char) later this morning. I will also discuss the above with Dr. Knight. Unfortunately, the overall status/prognosis of this patient is very poor. I would suggest getting her living will in order and possibly a hospice evaluation. Again, I will discuss the above with Dr. Knight. Gabo Love MD MTDYvonne
[2016-10-12 08:08] LABS: BLOOD UREA NITROGEN 12 mg/dL (7-21); CALCIUM 8.6 mg/dL (8.4-10.5); GFR AFRICAN-AMERICAN > 60; GFR NON-AFRICAN AMERICAN > 60
[2016-10-12 08:16] VITALS: O2SAT 97
--- NOTE | 2016-10-12 08:32 | CP.PCM.PN ---
Subjective - Date & Time of Evaluation Date of Evaluation: 10/12/16 Time of Evaluation: 07:00 - Subjective Subjective: Stable on 2R. No CP. No SOB reported. S/P thoracentesis 1500 cc's clear fluid removed. Post tap CT chest noted: C/W lung ca metastatic to mediastinum and encasing the right PA, etc. V/S noted. RSR PE: Lungs: decreased BS right side Cor.: S1S2, soft Systolic murmur Abd.: soft Ext.: no edema Neuro.: alert CT chest noted. Echo: NL LV fx., Mild MR, Mod. TR, Mod-Sev. PH Labs noted: Na+= 132 ECG 10/08: RSR, PRWP, NSSTW changes BC x2 NG at 3 days Objective - Vital Signs/Intake and Output Vital Signs (last 24 hours): Temp Pulse Resp BP Pulse Ox 98.4 F 91 H 19 131/62 97 10/12/16 06:00 10/12/16 06:00 10/12/16 06:00 10/12/16 06:00 10/12/16 06:00 Intake and Output: 10/12/16 10/12/16 06:59 18:59 Intake Total 100 Output Total 0 Balance 100 - Medications Medications: Current Medications Acetylcysteine (Acetylcysteine 20%) 4 ml IH [id number] [facility] Last Admin: 10/12/16 07:34 Dose: 4 ml Amlodipine Besylate (Norvasc) 10 mg PO DAILY [facility] Last Admin: 10/11/16 11:16 Dose: 10 mg Budesonide (Pulmicort Respules) 0.5 mg IH [id number] [facility] Last Admin: 10/12/16 07:35 Dose: 0.5 mg Enoxaparin Sodium (Lovenox) 50 mg SC Q12H MARY JANE PRN Reason: Protocol Last Admin: 10/10/16 21:43 Dose: 50 mg Famotidine (Pepcid) 40 mg PO HS [facility] Last Admin: 10/11/16 22:16 Dose: 40 mg Ceftriaxone Sodium (Rocephin 1 Gram Ivpb) 1 gm in 100 mls @ 100 mls/hr IVPB DAILY MARY JANE PRN Reason: Protocol Last Admin: 10/11/16 11:18 Dose: 100 mls/hr Azithromycin (Zithromax 500mg In Ns) 500 mg in 250 mls @ 250 mls/hr IVPB Q24H MARY JANE PRN Reason: Protocol Last Admin: 10/11/16 11:20 Dose: 250 mls/hr Levalbuterol HCl (Xopenex) 0.63 mg IH [id number] [facility] Last Admin: 10/12/16 07:35 Dose: 0.63 mg Levalbuterol HCl (Xopenex) 0.63 mg IH Q2 PRN PRN Reason: Shortness of Breath Metoprolol Tartrate (Lopressor) 50 mg PO BID [facility] Last Admin: 10/11/16 17:40 Dose: 50 mg Polyethylene Glycol (Miralax) 17 gm PO DAILY [facility] Last Admin: 10/11/16 11:18 Dose: Not Given Prednisone (Prednisone Tab) 30 mg PO DAILY [facility] - Labs Labs: 10/12/16 05:45 10/12/16 07:30 PT 10.5 Seconds (9.9-11.8) 10/07/16 16:30 INR 0.97 (0.93-1.08) 10/07/16 16:30 APTT 29.6 Seconds (23.7-30.8) 10/07/16 16:30 Assessment and Plan - Assessment and Plan (Free Text) Assessment: Dyspnea Opacification of right lung with endobronchial lesion right main stem bronchus seen on CT, s/p thoracentesis with 1500 cc clear fluid removed. Right pleural effusion F/U CT Chest shows advanced lung ca metastatic to mediastinum Hyponatremia, possible SIADH, resolved COPD/Emphysema/Former Smoker PAF/Flutter HBP Glaucoma Plan: As per pulmonary, int radiology, Dr. Knight Continue metoprolol [address] fluid studies. Conservative/palliative care being considered. Plan: Dyspnea Opacification of right lung with endobronchial lesion right main stem bronchus seen on CT, R/O lung cancer, pneumonia, mucous plug. Right pleural effusion Hyponatremia, possible SIADH, improving COPD/Emphysema/Former Smoker PAF/Flutter HBP Glaucoma Plan: As per pulmonary, int radiology. Thoracentesis today. Possible FOB for tissue dx.if necessary. Hold Lovenox this AM. As per ID. Check cultures Continue metoprolol 50 BID OOB
[2016-10-12] MEDS: POLYETHYLENE GLYCOL 3350 17 GM/Dose PACKET PO SCH (09:38)
[2016-10-12] MEDS: cefTRIAXone 1 gm 1 GM/100 ML BAG IVPB SCH (09:44)
--- NOTE | 2016-10-12 09:44 | CP.PCM.PN ---
<Jennifer Cruz - Last Filed: 10/12/16 09:49> Subjective - Date & Time of Evaluation Date of Evaluation: 10/12/16 Time of Evaluation: 07:45 - Subjective Subjective: Progress note for Dr Knight. Patient s/p thoracentesis yesterday. Patient reports she felt a little better, denies cp, n.v.d, reports the sob has improved. Patient denies fever or chills. Objective - Vital Signs/Intake and Output Vital Signs (last 24 hours): Temp Pulse Resp BP Pulse Ox 98.4 F 91 H 19 131/62 97 10/12/16 06:00 10/12/16 06:00 10/12/16 06:00 10/12/16 06:00 10/12/16 06:00 Intake and Output: 10/12/16 10/12/16 06:59 18:59 Intake Total 100 Output Total 0 Balance 100 - Medications Medications: Current Medications Acetylcysteine (Acetylcysteine 20%) 4 ml IH [id number] [facility] Last Admin: 10/12/16 07:34 Dose: 4 ml Amlodipine Besylate (Norvasc) 10 mg PO DAILY [facility] Last Admin: 10/11/16 11:16 Dose: 10 mg Budesonide (Pulmicort Respules) 0.5 mg IH [id number] [facility] Last Admin: 10/12/16 07:35 Dose: 0.5 mg Enoxaparin Sodium (Lovenox) 50 mg SC Q12H MARY JANE PRN Reason: Protocol Last Admin: 10/10/16 21:43 Dose: 50 mg Famotidine (Pepcid) 40 mg PO HS [facility] Last Admin: 10/11/16 22:16 Dose: 40 mg Ceftriaxone Sodium (Rocephin 1 Gram Ivpb) 1 gm in 100 mls @ 100 mls/hr IVPB DAILY MARY JANE PRN Reason: Protocol Last Admin: 10/11/16 11:18 Dose: 100 mls/hr Azithromycin (Zithromax 500mg In Ns) 500 mg in 250 mls @ 250 mls/hr IVPB Q24H MARY JANE PRN Reason: Protocol Last Admin: 10/11/16 11:20 Dose: 250 mls/hr Levalbuterol HCl (Xopenex) 0.63 mg IH [id number] [facility] Last Admin: 10/12/16 07:35 Dose: 0.63 mg Levalbuterol HCl (Xopenex) 0.63 mg IH Q2 PRN PRN Reason: Shortness of Breath Metoprolol Tartrate (Lopressor) 50 mg PO BID [facility] Last Admin: 10/11/16 17:40 Dose: 50 mg Polyethylene Glycol (Miralax) 17 gm PO DAILY [facility] Last Admin: 10/11/16 11:18 Dose: Not Given Prednisone (Prednisone Tab) 30 mg PO DAILY [facility] - Labs Labs: 10/12/16 05:45 10/12/16 07:30 PT 10.5 Seconds (9.9-11.8) 10/07/16 16:30 INR 0.97 (0.93-1.08) 10/07/16 16:30 APTT 29.6 Seconds (23.7-30.8) 10/07/16 16:30 - Constitutional Appears: No Acute Distress, Cachectic, Chronically Ill - Head Exam Head Exam: ATRAUMATIC, NORMAL INSPECTION, NORMOCEPHALIC - Eye Exam Eye Exam: EOMI, Normal appearance - ENT Exam ENT Exam: Mucous Membranes Moist - Neck Exam Neck Exam: Normal Inspection - Respiratory Exam Respiratory Exam: Decreased Breath Sounds (right lung), Rhonchi (left base). absent: Rales, Wheezes, Respiratory Distress, Stridor - Cardiovascular Exam Cardiovascular Exam: Irregular Rhythm, +S1, +S2 - GI/Abdominal Exam GI & Abdominal Exam: Soft, Normal Bowel Sounds. absent: Distended, Firm, Guarding, Rigid, Tenderness - Extremities Exam Extremities Exam: Normal Inspection - Back Exam Back Exam: NORMAL INSPECTION - Neurological Exam Neurological Exam: Alert, Awake, Oriented x3 - Psychiatric Exam Psychiatric exam: Normal Affect, Normal Mood - Skin Skin Exam: Dry, Intact, Warm Assessment and Plan - Assessment and Plan (Free Text) Assessment: 1) Advanced lung cancer. 2) Right large pleural effusion. 2) Acute bronchitis, with possible underlying pneumonia. 3) COPD 4) RVR Afib/flutter- currently rate controlled 5) Hyponatremia likely SIADH 6) Hypokalemia- resolved 7) htn Plan: Palliative nurse consult for palliative care of the advanced cancer. Cytology and cultures of thoracentesis pending On Rocephin and Zithromax for possible pneumonia. ID, Pulm and cardio following. Hyponatremia improving On mucomyst, pulmocort, xoponex and po prednisone for bronchitis. Will continue Norvasc for htn, Lopressor and Lovenox for afib/flutter. Patient seen, examined, and case discussed with Dr Knight. <Rick Knight S - Last Filed: 10/12/16 18:21> Objective - Vital Signs/Intake and Output Vital Signs (last 24 hours): Temp Pulse Resp BP Pulse Ox 97.7 F 91 H 20 131/67 97 10/12/16 12:00 10/12/16 17:44 10/12/16 12:00 10/12/16 17:44 10/12/16 06:00 Intake and Output: 10/12/16 10/12/16 06:59 18:59 Intake Total 100 Output Total 0 Balance 100 - Medications Medications: Current Medications Acetylcysteine (Acetylcysteine 20%) 4 ml IH [id number] [facility] Last Admin: 10/12/16 13:47 Dose: 4 ml Amlodipine Besylate (Norvasc) 10 mg PO DAILY [facility] Last Admin: 10/12/16 09:44 Dose: 10 mg Budesonide (Pulmicort Respules) 0.5 mg IH [id number] [facility] Last Admin: 10/12/16 07:35 Dose: 0.5 mg Enoxaparin Sodium (Lovenox) 50 mg SC Q12H MARY JANE PRN Reason: Protocol Last Admin: 10/10/16 21:43 Dose: 50 mg Famotidine (Pepcid) 40 mg PO HS MARY JANE Last Admin: 10/11/16 22:16 Dose: 40 mg Ceftriaxone Sodium (Rocephin 1 Gram Ivpb) 1 gm in 100 mls @ 100 mls/hr IVPB DAILY MARY JANE PRN Reason: Protocol Last Admin: 10/12/16 09:44 Dose: 100 mls/hr Azithromycin (Zithromax 500mg In Ns) 500 mg in 250 mls @ 250 mls/hr IVPB Q24H MARY JANE PRN Reason: Protocol Last Admin: 10/12/16 09:45 Dose: 250 mls/hr Levalbuterol HCl (Xopenex) 0.63 mg IH [id number] [facility] Last Admin: 10/12/16 13:47 Dose: 0.63 mg Levalbuterol HCl (Xopenex) 0.63 mg IH Q2 PRN PRN Reason: Shortness of Breath Metoprolol Tartrate (Lopressor) 50 mg PO BID [facility] Last Admin: 10/12/16 17:44 Dose: 50 mg Polyethylene Glycol (Miralax) 17 gm PO DAILY [facility] Last Admin: 10/12/16 09:38 Dose: 17 gm Prednisone (Prednisone Tab) 30 mg PO DAILY [facility] Last Admin: 10/12/16 09:38 Dose: 30 mg - Labs Labs: 10/12/16 05:45 10/12/16 07:30 PT 10.5 Seconds (9.9-11.8) 10/07/16 16:30 INR 0.97 (0.93-1.08) 10/07/16 16:30 APTT 29.6 Seconds (23.7-30.8) 10/07/16 16:30 Assessment and Plan - Assessment and Plan (Free Text) Plan: Pt seen and examined. I have reviewed the note of the resident and agree with it. Spoke to Dr Love. He spoke to family and no bx is needed. Pt with large tumor in the lung and is most likely cancer. Will send to TCU. Pt feels well. no other issues.
[2016-10-12] MEDS: Azithromycin 500MG/NS 250ml 500 MG/250 ML BAG IVPB SCH (09:45)
--- NOTE | 2016-10-12 16:18 | CP.PCM.PN ---
Subjective - Date & Time of Evaluation Date of Evaluation: 10/12/16 Time of Evaluation: 09:05 - Subjective Subjective: Comfortable in bed, not in distress, no fevers, had thoracentesis yesterday. Objective - Vital Signs/Intake and Output Vital Signs (last 24 hours): Temp Pulse Resp BP Pulse Ox 98.4 F 83 19 130/64 95 10/12/16 00:01 10/12/16 00:01 10/12/16 00:01 10/12/16 00:01 10/12/16 00:01 - Medications Medications: Current Medications Acetylcysteine (Acetylcysteine 20%) 4 ml IH [id number] [facility] Last Admin: 10/12/16 02:40 Dose: Not Given Amlodipine Besylate (Norvasc) 10 mg PO DAILY [facility] Last Admin: 10/11/16 11:16 Dose: 10 mg Budesonide (Pulmicort Respules) 0.5 mg IH [id number] [facility] Last Admin: 10/11/16 20:33 Dose: 0.5 mg Enoxaparin Sodium (Lovenox) 50 mg SC Q12H MARY JANE PRN Reason: Protocol Last Admin: 10/10/16 21:43 Dose: 50 mg Famotidine (Pepcid) 40 mg PO HS [facility] Last Admin: 10/11/16 22:16 Dose: 40 mg Ceftriaxone Sodium (Rocephin 1 Gram Ivpb) 1 gm in 100 mls @ 100 mls/hr IVPB DAILY [facility] PRN Reason: Protocol Last Admin: 10/11/16 11:18 Dose: 100 mls/hr Azithromycin (Zithromax 500mg In Ns) 500 mg in 250 mls @ 250 mls/hr IVPB Q24H MARY JANE PRN Reason: Protocol Last Admin: 10/11/16 11:20 Dose: 250 mls/hr Levalbuterol HCl (Xopenex) 0.63 mg IH [id number] [facility] Last Admin: 10/12/16 02:41 Dose: Not Given Levalbuterol HCl (Xopenex) 0.63 mg IH Q2 PRN PRN Reason: Shortness of Breath Methylprednisolone (Solu-Medrol) 20 mg IVP Q12 [facility] Last Admin: 10/11/16 22:16 Dose: 20 mg Metoprolol Tartrate (Lopressor) 50 mg PO BID [facility] Last Admin: 10/11/16 17:40 Dose: 50 mg Polyethylene Glycol (Miralax) 17 gm PO DAILY [facility]ARY JANE Last Admin: 10/11/16 11:18 Dose: Not Given - Labs Labs: 10/12/16 05:45 10/11/16 05:20 PT 10.5 Seconds (9.9-11.8) 10/07/16 16:30 INR 0.97 (0.93-1.08) 10/07/16 16:30 APTT 29.6 Seconds (23.7-30.8) 10/07/16 16:30 - Constitutional Appears: Non-toxic, No Acute Distress - Head Exam Head Exam: NORMAL INSPECTION - ENT Exam ENT Exam: Mucous Membranes Moist - Neck Exam Neck Exam: absent: Meningismus - Respiratory Exam Respiratory Exam: Decreased Breath Sounds - Cardiovascular Exam Cardiovascular Exam: +S1, +S2 - GI/Abdominal Exam GI & Abdominal Exam: Soft. absent: Tenderness Assessment and Plan - Assessment and Plan (Free Text) Plan: Assessment Systemic Inflammatory Response Syndrome, R/O sepsis due to community-acquired pneumonia with associated right sided pleural effusion in this patient presenting with right lung complete opacification with right bronchial obstruction from an endobroncial lesions R/O malignancy S/P thoracentesis COPD right arm ecchymoses and swelling related to IV line site Plan continue Rocephin and Zithromax day 5; PCT is <0.05, blood cx are negative - will target 5-7 days of antibiotics - follow up pleural fluid analysis; will d/ c antibiotics in the next 24-48 hours will continue to monitor clinically Discussed with Dr. Love previously
[2016-10-13 01:05] VITALS: TEMP 98.2
[2016-10-13] MEDS: Levalbuterol 0.63 MG/3 ML Inhal Soln UD IH SCH ×3 (01:19→14:08)
[2016-10-13] MEDS: Acetylcysteine 20% Inhal Soln (4ml) IH SCH ×3 (01:24→14:08)
--- NOTE | 2016-10-13 06:16 | PN ---
DATE: 10/13/2016 SUBJECTIVE: The appears comfortable this morning. She is not short of breath at rest. PHYSICAL EXAMINATION: VITAL SIGNS: Temperature 98.2, pulse 95, respirations 18, blood pressure 123/64, oxygen saturation on nasal cannula is 97%. HEENT: Normocephalic atraumatic. NECK: No JVD. CARDIOVASCULAR: Systolic ejection murmur at the lower left sternal border. No S3 gallop. LUNGS: Minimal/less rhonchi. No wheezing. EXTREMITIES: No clubbing, cyanosis, or edema. Calves are nontender to palpation. GI: Abdomen is soft, nontender, and nondistended. Bowel sounds are positive. SKIN: No acute rash. NEUROLOGIC: Limit at the present time. IMPRESSION: 1. Advanced lung cancer. 2. Very large right pleural effusion. 3. Rule out underlying pneumonia. 4. Acute bronchitis. 5. Chronic obstructive pulmonary disease. 6. Cardiac arrhythmias. PLAN: The patient appears comfortable this morning. She is not short of breath at rest. She does state she is feeling better. She remains very weak and frail looking. On physical exam, her bronchospasm continues to resolve. In addition, the oxygen saturation on nasal cannula is now 97%. I will continue with the current nebulizer treatments and oral steroids for now. I will also continue with the chest physiotherapy. I did have a long talk with one of the daughters - Maribel - yesterday. Maribel and I discussed the entire case including, the last CAT scan findings. Maribel informed me clearly that she would want NO other aggressive procedures (including biopsies) done. I fully understand and support this view. Aaliyah Mcdaniel (palliative care) has been called on the case. We are still awaiting the pleural fluid cytology, as well as the sputum cytology. The clinical status of this patient has improved - compared to the initial presentation. However, the future status/prognosis of this patient remains very poor. All are aware. I did discuss the above with Dr. Knight at length in addition. Gabo Love MD KELVIN
[2016-10-13 06:46] VITALS: BP 130/66; PULSE 95; RESP 17
[2016-10-13] MEDS: Budesonide 0.5 mg/2 ml Inhal Susp UD IH SCH (08:21)
[2016-10-13] MEDS: POLYETHYLENE GLYCOL 3350 17 GM/Dose PACKET PO SCH (08:59)
--- NOTE | 2016-10-13 09:44 | CP.PCM.PN ---
Subjective - Date & Time of Evaluation Date of Evaluation: 10/13/16 Time of Evaluation: 07:30 - Subjective Subjective: Progress note for Dr Knight service. Patient with no complaints, reported she slept well. Patient denies sob, cp, fever or chills. Afib on tele, mostly rate controlled. Saturating 96% on 2 litters of nasal cannula. Objective - Vital Signs/Intake and Output Vital Signs (last 24 hours): Temp Pulse Resp BP Pulse Ox 98.2 F 95 H 17 130/66 97 10/13/16 06:00 10/13/16 06:00 10/13/16 06:00 10/13/16 09:13 10/13/16 06:00 Intake and Output: 10/13/16 10/13/16 06:59 18:59 Intake Total 360 1370 Output Total 100 Balance 360 1270 - Medications Medications: Current Medications Acetylcysteine (Acetylcysteine 20%) 4 ml IH [id number] [facility] Last Admin: 10/13/16 08:21 Dose: 4 ml Amlodipine Besylate (Norvasc) 10 mg PO DAILY [facility] Last Admin: 10/13/16 09:13 Dose: 10 mg Budesonide (Pulmicort Respules) 0.5 mg IH [id number] [facility] Last Admin: 10/13/16 08:21 Dose: 0.5 mg Enoxaparin Sodium (Lovenox) 50 mg SC Q12H MARY JANE PRN Reason: Protocol Last Admin: 10/10/16 21:43 Dose: 50 mg Famotidine (Pepcid) 40 mg PO HS [facility] Last Admin: 10/12/16 21:46 Dose: 40 mg Levalbuterol HCl (Xopenex) 0.63 mg IH [id number] [facility] Last Admin: 10/13/16 08:21 Dose: 0.63 mg Levalbuterol HCl (Xopenex) 0.63 mg IH Q2 PRN PRN Reason: Shortness of Breath Metoprolol Tartrate (Lopressor) 50 mg PO BID [facility] Last Admin: 10/13/16 09:13 Dose: 50 mg Polyethylene Glycol (Miralax) 17 gm PO DAILY [facility] Last Admin: 10/13/16 08:59 Dose: Not Given Prednisone (Prednisone Tab) 30 mg PO DAILY [facility] Last Admin: 10/13/16 09:14 Dose: 30 mg - Labs Labs: 10/12/16 05:45 10/12/16 07:30 PT 10.5 Seconds (9.9-11.8) 10/07/16 16:30 INR 0.97 (0.93-1.08) 10/07/16 16:30 APTT 29.6 Seconds (23.7-30.8) 10/07/16 16:30 - Constitutional Appears: No Acute Distress, Cachectic, Chronically Ill - Head Exam Head Exam: ATRAUMATIC, NORMAL INSPECTION, NORMOCEPHALIC - Eye Exam Eye Exam: EOMI, Normal appearance, PERRL Pupil Exam: PERRL - ENT Exam ENT Exam: Mucous Membranes Moist - Neck Exam Neck Exam: Normal Inspection - Respiratory Exam Respiratory Exam: Decreased Breath Sounds (on the right ), NORMAL BREATHING PATTERN. absent: Rales, Rhonchi, Wheezes, Respiratory Distress, Stridor - Cardiovascular Exam Cardiovascular Exam: Irregular Rhythm, +S1, +S2 - GI/Abdominal Exam GI & Abdominal Exam: Soft, Normal Bowel Sounds. absent: Distended, Firm, Guarding, Rigid, Tenderness - Extremities Exam Extremities Exam: Normal Inspection - Back Exam Back Exam: NORMAL INSPECTION - Neurological Exam Neurological Exam: Alert, Awake Additional comments: Oriented x2 - Psychiatric Exam Psychiatric exam: Normal Affect, Normal Mood - Skin Skin Exam: Abrasion, Dry, Warm Assessment and Plan - Assessment and Plan (Free Text) Assessment: 1) Advanced lung cancer. 2) Right large pleural effusion. 2) Acute bronchitis, with possible underlying pneumonia. 3) COPD 4) RVR Afib/flutter- currently rate controlled 5) Hyponatremia likely SIADH- improved. 6) Hypokalemia- resolved 7) htn 8) Anemia Plan: Patient is pending placement, likely TCU versus BILL. Patient's family doesn't want aggressive measures for patient's advanced lung ca. On Rocephin and Zithromax for possible pneumonia. will follow up with ID in regards to antibiotics, patient is afebrile, no leukocytosis, procal low. On mucomyst, pulmocort, xoponex and po prednisone for bronchitis, pulm following. Will continue Norvasc for htn, Lopressor and Lovenox for afib/flutter. Cardiology is also following patient. Patient seen, examined, and case discussed with Dr Knight.
--- NOTE | 2016-10-13 14:06 | CP.PCM.PN ---
Subjective - Date & Time of Evaluation Date of Evaluation: 10/13/16 Time of Evaluation: 08:35 - Subjective Subjective: Comfortable, not in distress, no fevers. Objective - Vital Signs/Intake and Output Vital Signs (last 24 hours): Temp Pulse Resp BP Pulse Ox 98.2 F 95 H 18 123/64 97 10/13/16 00:01 10/13/16 00:01 10/13/16 00:01 10/13/16 00:01 10/12/16 06:00 - Medications Medications: Current Medications Acetylcysteine (Acetylcysteine 20%) 4 ml IH [id number] [facility] Last Admin: 10/13/16 01:24 Dose: 4 ml Amlodipine Besylate (Norvasc) 10 mg PO DAILY [facility] Last Admin: 10/12/16 09:44 Dose: 10 mg Budesonide (Pulmicort Respules) 0.5 mg IH [id number] [facility] Last Admin: 10/12/16 20:10 Dose: 0.5 mg Enoxaparin Sodium (Lovenox) 50 mg SC Q12H MARY JANE PRN Reason: Protocol Last Admin: 10/10/16 21:43 Dose: 50 mg Famotidine (Pepcid) 40 mg PO HS [facility] Last Admin: 10/12/16 21:46 Dose: 40 mg Ceftriaxone Sodium (Rocephin 1 Gram Ivpb) 1 gm in 100 mls @ 100 mls/hr IVPB DAILY [facility] PRN Reason: Protocol Last Admin: 10/12/16 09:44 Dose: 100 mls/hr Azithromycin (Zithromax 500mg In Ns) 500 mg in 250 mls @ 250 mls/hr IVPB Q24H MARY JANE PRN Reason: Protocol Last Admin: 10/12/16 09:45 Dose: 250 mls/hr Levalbuterol HCl (Xopenex) 0.63 mg IH [id number] [facility] Last Admin: 10/13/16 01:19 Dose: 0.63 mg Levalbuterol HCl (Xopenex) 0.63 mg IH Q2 PRN PRN Reason: Shortness of Breath Metoprolol Tartrate (Lopressor) 50 mg PO BID [facility] Last Admin: 10/12/16 17:44 Dose: 50 mg Polyethylene Glycol (Miralax) 17 gm PO DAILY [facility] Last Admin: 10/12/16 09:38 Dose: 17 gm Prednisone (Prednisone Tab) 30 mg PO DAILY [facility] Last Admin: 10/12/16 09:38 Dose: 30 mg - Labs Labs: 10/12/16 05:45 10/12/16 07:30 PT 10.5 Seconds (9.9-11.8) 10/07/16 16:30 INR 0.97 (0.93-1.08) 10/07/16 16:30 APTT 29.6 Seconds (23.7-30.8) 10/07/16 16:30 - Constitutional Appears: Non-toxic, No Acute Distress - Head Exam Head Exam: NORMAL INSPECTION - ENT Exam ENT Exam: Mucous Membranes Moist - Neck Exam Neck Exam: absent: Meningismus - Respiratory Exam Respiratory Exam: Decreased Breath Sounds - Cardiovascular Exam Cardiovascular Exam: +S1, +S2 - GI/Abdominal Exam GI & Abdominal Exam: Soft. absent: Tenderness Assessment and Plan - Assessment and Plan (Free Text) Plan: Assessment Systemic Inflammatory Response Syndrome, R/O sepsis due to community-acquired pneumonia with associated right sided pleural effusion in this patient presenting with right lung complete opacification with right bronchial obstruction from an endobroncial lesions R/O malignancy S/P thoracentesis COPD right arm ecchymoses and swelling related to IV line site Plan on Rocephin and Zithromax day 6; PCT is <0.05, blood cx are negative - will target 5-7 days of antibiotics - follow up pleural fluid analysis; will d/c antibiotics today will continue to monitor clinically Discussed with Dr. Love previously
[2016-10-13 14:39] LABS: HEMOGLOBIN 12.8 g/dL (12.0-16.0); MEAN CELL VOLUME 84.6 fl (80.0-105.0); MEAN CORPUSCULAR HEMOGLOBIN 28.1 pg (25.0-35.0); MEAN CORPUSCULAR HGB CONC 33.2 g/dl (31.0-37.0); MEAN PLATELET VOLUME 9.4 fl (7.0-11.0); PLATELET COUNT 341 10^3/uL (120.0-450.0); RBC 4.56 10^6/uL (3.5-6.1); RED CELL DISTRIBUTION WIDTH 13.6 % (11.5-14.5); WHITE BLOOD COUNT 21.6 10^3/ul (4.5-11.0)
[2016-10-13 14:49] LABS: ALB/GLOB RATIO 1.1 (1.1-1.8); ALBUMIN 3.3 g/dL (3.0-4.8); ALT/SGPT 51 U/L (7-56); AST/SGOT 23 U/L (15-39); BLOOD UREA NITROGEN 14 mg/dL (7-21); CALCIUM 8.6 mg/dL (8.4-10.5); GFR AFRICAN-AMERICAN > 60; GFR NON-AFRICAN AMERICAN > 60
[2016-10-13 16:36] LABS: TOTAL PROTEIN PLEURAL FLUID 3.2 g/dL
[2016-10-13 16:39] LABS: LYMPHOCYTE 2 % (22.0-35.0); MONOCYTE 1 % (1.0-6.0); NEUTROPHIL 97 % (50.0-70.0); PLATELET ESTIMATE NORMAL (NORMAL)
== END 2016-10-13 14:18 | DRG 180 ==
LOC: ED 15:20 → ERH 17:54 → 2RNO 22:36 → 3RSO 10-13 11:51
PROVIDERS: ADMIT Internal Medicine Nephrology; ATTEND Internal Medicine Nephrology
PROC: 3E0F7GC Introduction of Other Therapeutic Substance into Respiratory Tract, Via Natural or Artificial Opening (ICD-10-PCS; 2016-10-08)
PROC: 0W993ZZ Drainage of Right Pleural Cavity, Percutaneous Approach (ICD-10-PCS; principal; 2016-10-11 13:00)
DX: C34.90 Malignant neoplasm of unspecified part of unspecified bronchus or lung (principal); J18.9 Pneumonia, unspecified organism; I47.2 Ventricular tachycardia; I11.0 Hypertensive heart disease with heart failure; I50.9 Heart failure, unspecified; J44.0 Chronic obstructive pulmonary disease with (acute) lower respiratory infection; I48.92 Unspecified atrial flutter; J91.8 Pleural effusion in other conditions classified elsewhere; E22.2 Syndrome of inappropriate secretion of antidiuretic hormone; I48.0 Paroxysmal atrial fibrillation; R09.02 Hypoxemia; M79.89 Other specified soft tissue disorders; D64.9 Anemia, unspecified; E87.6 Hypokalemia; T50.2X5A Adverse effect of carbonic-anhydrase inhibitors, benzothiadiazides and other diuretics, initial encounter; H40.9 Unspecified glaucoma; Z87.891 Personal history of nicotine dependence

== ENCOUNTER 2016-10-13 14:22 | Inpatient (IN) | payer OTHER ==
[2016-10-13 14:29] VITALS: BMI 19.6
[2016-10-13] MEDS ORDERED: Levalbuterol 0.63 MG/3 ML Inhal Soln UD IH PRN ×2 (14:49→15:07)
[2016-10-13] MEDS ORDERED: Pneumococcal 23-Valent Vaccine IM ONE (16:27)
[2016-10-13] MEDS: Enoxaparin 60 mg Syringe SC SCH (18:18)
[2016-10-13] MEDS: Arformoterol 15 mcg/2 ml Inh Sol IH SCH (21:15)
[2016-10-13] MEDS: Acetylcysteine 20% Inhal Soln (4ml) IH SCH (21:15)
[2016-10-13] MEDS: Levalbuterol 0.63 MG/3 ML Inhal Soln UD IH SCH (21:15)
[2016-10-13] MEDS: Budesonide 0.5 mg/2 ml Inhal Susp UD IH SCH (21:15)
[2016-10-14] MEDS: Acetylcysteine 20% Inhal Soln (4ml) IH SCH ×4 (01:41→20:10)
[2016-10-14] MEDS: Levalbuterol 0.63 MG/3 ML Inhal Soln UD IH SCH ×4 (01:41→20:09)
[2016-10-14] MEDS: Enoxaparin 60 mg Syringe SC SCH ×2 (05:21→17:54)
[2016-10-14] MEDS: Arformoterol 15 mcg/2 ml Inh Sol IH SCH ×2 (07:28→20:10)
[2016-10-14] MEDS: Budesonide 0.5 mg/2 ml Inhal Susp UD IH SCH ×2 (07:28→20:10)
[2016-10-14] MEDS: POLYETHYLENE GLYCOL 3350 17 GM/Dose PACKET PO SCH (12:39)
--- NOTE | 2016-10-14 13:11 | PN ---
DATE: 10/14/2016 PULMONARY NOTE SUBJECTIVE: The patient appears comfortable this morning. She is not short of breath at rest. PHYSICAL EXAMINATION: VITAL SIGNS: Temperature is 97.3, pulse 97, respirations 18/20, blood pressure 107/68. Oxygen saturation on nasal cannula is 97%. HEENT: Normocephalic, atraumatic. NECK: No JVD. CARDIOVASCULAR: Systolic ejection murmur at the lower left sternal border. No S3 gallop. LUNGS: Minimal bilateral rhonchi. No wheezing. EXTREMITIES: No clubbing, cyanosis, or edema. Calves are nontender to palpation. GASTROINTESTINAL: Abdomen is soft, nontender, and nondistended. Bowel sounds are positive. SKIN: No acute rash. NEUROLOGIC: Limited at the present time. IMPRESSION: 1. Advanced lung cancer. 2. Very large right pleural effusion. 3. Rule out underlying pneumonia. 4. Acute bronchitis. 5. Chronic obstructive pulmonary disease. 6. Cardiac arrhythmias. PLAN: The patient appears comfortable this morning. She is not short of breath at rest. She remains very weak and frail looking. On physical exam, there is less bronchospasm noted. In addition, the alveolar-arterial gradient is also less. I will continue with the current nebulizer treatments and oral steroids for now. I will also continue with the chest physiotherapy. I did have a long talk with Maribel - one of the daughters-- two days ago. That discussion is outlined in yesterday's note. Pleural fluid cytology and sputum cytology are still pending. I will discuss the case with Dr. Montgomery (pathology) later today. Consultation with Aaliyah Mcdaniel (palliative care) is ordered. Unfortunately, the future status/prognosis for this very nice elderly patient remains very poor. All are aware. I will discuss the above with Dr. Knight this morning. Gabo Love MD MTDD
--- NOTE | 2016-10-14 17:17 | CP.PCM.CON ---
History of Present Illness - History of Present Illness History of Present Illness: 86 year old female with PMH of COPD was intially admitted in [facility] for shortness of breath and cough and was found to have massive pleural effusion on the right side. Thoracentesis was done and the repeat imaging showed endobronchial lesion. She also completed a course of IV antibiotics for possible pneumonia on the right side. She has been doing well and is now transferred to [facility] for continued medical therapy and physical rehabilitation. Infectious diseases consult is requested to determine if the patient still needs antibiotics. Currently the patient is comfortable in bed, not in distress , no fever or chills, improved cough, no SOB at rest, no nausea or vomiting, no chest pain, no abdominal pain, no diarrhea, no dysuria. Review of Systems - Review of Systems All systems: reviewed and no additional remarkable complaints except (as per HPI ) Past Patient History - Infectious Disease Hx of Infectious Diseases: None - Past Social History Smoking Status: Never Smoked - CARDIAC Hx Congestive Heart Failure: Yes Hx Hypertension: Yes - PULMONARY Hx Chronic Obstructive Pulmonary Disease (COPD): Yes - MUSCULOSKELETAL/RHEUMATOLOGICAL Hx Falls: No - GASTROINTESTINAL Hx Gastrointestinal Disorders: No - GENITOURINARY/GYNECOLOGICAL Hx Genitourinary Disorders: (URGENCY) Hx Reproductive Disorders: No - PSYCHIATRIC Hx Substance Use: No - SURGICAL HISTORY Hx Surgeries: No Meds Allergies/Adverse Reactions: Allergies Allergy/AdvReac Type Severity Reaction Status Date / Time No Known Allergies Allergy Verified 10/13/16 14:37 - Medications Medications: Current Medications Acetylcysteine (Acetylcysteine 20%) 4 ml IH [id number] MARY JANE PRN Reason: Protocol Last Admin: 10/13/16 21:15 Dose: 4 ml Amlodipine Besylate (Norvasc) 10 mg PO DAILY [facility]ARY JANE PRN Reason: Protocol Arformoterol Tartrate (Brovana) 15 mcg IH [id number] [facility]ARY JANE Last Admin: 10/13/16 21:15 Dose: 15 mcg Budesonide (Pulmicort Respules) 0.5 mg IH [id number] MARY JANE PRN Reason: Protocol Last Admin: 10/13/16 21:15 Dose: 0.5 mg Enoxaparin Sodium (Lovenox) 50 mg SC 0600,1800 MARY JANE PRN Reason: Protocol Last Admin: 10/13/16 18:18 Dose: 50 mg Famotidine (Pepcid) 40 mg PO HS MARY JANE PRN Reason: Protocol Last Admin: 10/13/16 21:36 Dose: 40 mg Levalbuterol HCl (Xopenex) 0.63 mg IH Q2H PRN; Protocol PRN Reason: Shortness of Breath Levalbuterol HCl (Xopenex) 0.63 mg IH [id number] MARY JANE PRN Reason: Protocol Last Admin: 10/13/16 21:15 Dose: 0.63 mg Metoprolol Tartrate (Lopressor) 50 mg PO 0800,1800 MARY JANE PRN Reason: Protocol Last Admin: 10/13/16 18:16 Dose: 50 mg Polyethylene Glycol (Miralax) 17 gm PO DAILY [facility]ARY JANE PRN Reason: Protocol Prednisone (Prednisone Tab) 30 mg PO 0800 MARY JANE PRN Reason: Protocol Physical Exam - Constitutional Appears: Non-toxic, No Acute Distress - Head Exam Head Exam: NORMAL INSPECTION - Respiratory Exam Respiratory Exam: Decreased Breath Sounds - Cardiovascular Exam Cardiovascular Exam: +S1, +S2 - GI/Abdominal Exam GI & Abdominal Exam: Soft. absent: Tenderness Results - Vital Signs Recent Vital Signs: Last Vital Signs Temp 97.3 F L 10/13/16 16:05 Pulse 97 H 10/13/16 18:16 Resp 20 10/13/16 16:05 BP 107/68 10/13/16 18:16 Pulse Ox Assessment & Plan - Assessment and Plan (Free Text) Plan: Assessment S/P Systemic Inflammatory Response Syndrome, S/P treatment for community- acquired pneumonia with associated right sided pleural effusion in this patient presenting with right lung complete opacification with right bronchial obstruction from an endobroncial lesion suspicious for malignancy S/P thoracentesis COPD right arm ecchymoses and swelling related to IV line site Plan completed course of antibiotics; will monitor off antibiotics since she is at risk for nosocomial infections
--- NOTE | 2016-10-14 21:09 | PN ---
DATE: 10/14/2016 SUBJECTIVE: Patient has no complaints of any chest pain, shortness of breath or headaches. She is sitting in a chair, getting physical therapy. The initial H&P has been reviewed. PHYSICAL EXAMINATION VITAL SIGNS: Temperature is 98.3, pulse of 105, blood pressure is 101/59, respirations 18. GENERAL: The patient is lying in bed, flat, comfortable. HEENT: No oral lesion. Anicteric sclerae. Moist mucosa. NECK: No JVD, adenopathy, or thyromegaly. CARDIOVASCULAR: S1 and S2, regular. No murmurs, rubs, or gallops. LUNGS: Clear to auscultation bilaterally. No wheeze, rales, or rhonchi. ABDOMEN: Bowel sounds are positive, soft, nontender and nondistended. EXTREMITIES: no cyanosis, clubbing or edema. ASSESSMENT: 1. Right lung mass. 2. Right pleural effusion status post thoracentesis. 3. Chronic obstructive pulmonary disease. 4. Hyponatremia, resolved. 5. Hypokalemia, resolved. 6. Hypertension. PLAN: The patient is on TCU for physical therapy. She is on Lovenox for anticoagulation. The patient on Brovana. This will be continued. She is getting metoprolol. She has been followed by cardiology. She did have paroxysmal atrial fibrillation. We will defer to them regarding the patient's anticoagulation. Patient is on Norvasc for hypertension. Is on prednisone daily. She is on a heart healthy diet. Rick Knight MD
[2016-10-15] MEDS: Acetylcysteine 20% Inhal Soln (4ml) IH SCH ×4 (01:25→21:41)
[2016-10-15] MEDS: Levalbuterol 0.63 MG/3 ML Inhal Soln UD IH SCH ×4 (01:25→21:42)
[2016-10-15] MEDS: Enoxaparin 60 mg Syringe SC SCH ×2 (05:23→18:12)
[2016-10-15] MEDS: Budesonide 0.5 mg/2 ml Inhal Susp UD IH SCH ×2 (07:23→21:41)
[2016-10-15] MEDS: Arformoterol 15 mcg/2 ml Inh Sol IH SCH ×2 (07:23→21:41)
--- NOTE | 2016-10-15 08:24 | PN ---
DATE: 10/15/2016 SUBJECTIVE: The patient appears comfortable at rest. She is not short of breath. She remains frail and weak looking. PHYSICAL EXAMINATION: VITAL SIGNS: Temperature is 98.1, pulse this morning 90, respirations 18, blood pressure 99/59. Oxygen saturation on nasal cannula is 98%. HEENT: Normocephalic, atraumatic. NECK: No JVD. CARDIOVASCULAR: Systolic ejection murmur at the lower left sternal border. No S3 gallop. LUNGS: Minimal bilateral rhonchi. No wheezing. EXTREMITIES: No clubbing, cyanosis, or edema. Calves are nontender to palpation. GASTROINTESTINAL: Abdomen is soft, nontender, and nondistended. Bowel sounds are positive. SKIN: No acute rash. NEUROLOGIC: Limited at the present time. PERTINENT LABORATORY DATA: Cytology results are back from the induced sputum-done by respiratory. 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 Pleural fluid cytology is still pending. IMPRESSION: 1. Advanced lung cancer. 2. Very large right pleural effusion. 3. Rule out underlying pneumonia. 4. Acute bronchitis. 5. Chronic obstructive pulmonary disease. 6. Cardiac arrhythmias. PLAN: The patient appears comfortable this morning. She is not short of breath at rest. She remains very weak and frail looking. On physical exam, her bronchospasm continues to slowly resolve. In addition, the oxygen saturation on nasal cannula is now 98%. I will continue with the current nebulizer treatments and decrease the oral steroids this morning. I did discuss the case with the pathologists at length yesterday. The induced sputum (done by respiratory) is positive for malignant cells, favoring squamous cell carcinoma. We are still awaiting the pleural fluid cytology. I would continue with the infectious disease and cardiology evaluations. Inputs are noted. Clinical status of the patient has certainly improved-compared to the initial presentation. However, again, unfortunately,the overall status/prognosis for this patient remains very poor. All are aware. I will discuss the above with Dr. Knight. Gabo Love MD KELVIN
--- NOTE | 2016-10-15 09:27 | CP.PCM.CON ---
History of Present Illness - History of Present Illness History of Present Illness: Palliative consult requested by Dr Rosalio Knight Reason: Goals of care /advance care planning 86 year old female seen in TCU for deconditioning. Patient was initially admitted to acute care with complaints of dyspnea and productive cough. Chest xray showed complete opacification of left lung with right mediastinal shift. Subsequent CT of chest revealed complete obstruction of right main bronchus, extensive right hilar adenopathy which encases the right main pulmonary artery, complete atelectasis of right lung, persistent large right pleural effusion. 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 PMHx: HTN,COPD,emphysema, CHF, atrial fibrillation, mitral/ tricuspid regurgitation,pulmonary hypertension Social History: Former heavy smoker, no alcohol or drug use. , lives independently. Her daughter lives in the same building. Family History: Non contributory. Advance Care Planning: The patient does not have an Advanced Directive. Review of Systems:As per HPI, all other sates reviewed and are normal Past Patient History - Infectious Disease Hx of Infectious Diseases: None - Past Social History Smoking Status: Never Smoked - CARDIAC Hx Congestive Heart Failure: Yes Hx Hypertension: Yes - PULMONARY Hx Chronic Obstructive Pulmonary Disease (COPD): Yes - MUSCULOSKELETAL/RHEUMATOLOGICAL Hx Falls: No - GASTROINTESTINAL Hx Gastrointestinal Disorders: No - GENITOURINARY/GYNECOLOGICAL Hx Genitourinary Disorders: (URGENCY) Hx Reproductive Disorders: No - PSYCHIATRIC Hx Substance Use: No - SURGICAL HISTORY Hx Surgeries: No Meds Allergies/Adverse Reactions: Allergies Allergy/AdvReac Type Severity Reaction Status Date / Time No Known Allergies Allergy Verified 10/13/16 14:37 - Medications Medications: Current Medications Acetylcysteine (Acetylcysteine 20%) 4 ml IH [id number] MARY JANE PRN Reason: Protocol Last Admin: 10/15/16 07:23 Dose: 4 ml Amlodipine Besylate (Norvasc) 10 mg PO DAILY MARY JANE PRN Reason: Protocol Last Admin: 10/14/16 10:42 Dose: 10 mg Arformoterol Tartrate (Brovana) 15 mcg IH [id number] [facility]ARY JANE Last Admin: 10/15/16 07:23 Dose: 15 mcg Budesonide (Pulmicort Respules) 0.5 mg IH [id number] MARY JANE PRN Reason: Protocol Last Admin: 10/15/16 07:23 Dose: 0.5 mg Enoxaparin Sodium (Lovenox) 50 mg SC 0600,1800 [facility] PRN Reason: Protocol Last Admin: 10/15/16 05:23 Dose: 50 mg Famotidine (Pepcid) 40 mg PO HS MARY JANE PRN Reason: Protocol Last Admin: 10/14/16 21:23 Dose: 40 mg Levalbuterol HCl (Xopenex) 0.63 mg IH Q2H PRN; Protocol PRN Reason: Shortness of Breath Levalbuterol HCl (Xopenex) 0.63 mg IH [id number] MARY JANE PRN Reason: Protocol Last Admin: 10/15/16 07:23 Dose: 0.63 mg Metoprolol Tartrate (Lopressor) 50 mg PO 0800,1800 [facility] PRN Reason: Protocol Last Admin: 10/15/16 08:09 Dose: 50 mg Polyethylene Glycol (Miralax) 17 gm PO DAILY [facility] PRN Reason: Protocol Last Admin: 10/14/16 12:39 Dose: 17 gm Prednisone (Prednisone Tab) 20 mg PO DAILY [facility] Physical Exam - Constitutional Appears: Cachectic, Chronically Ill - Eye Exam Eye Exam: Normal appearance, PERRL - ENT Exam ENT Exam: Mucous Membranes Moist, Normal Oropharynx - Neck Exam Neck exam: Positive for: Normal Inspection - Respiratory Exam Respiratory Exam: Decreased Breath Sounds, Rhonchi Additional comments: dyspnea on exertion - Cardiovascular Exam Cardiovascular Exam: Irregular Rhythm, +S1, +S2 - GI/Abdominal Exam GI & Abdominal Exam: Normal Bowel Sounds, Soft - Extremities Exam Extremities exam: Positive for: normal capillary refill, normal inspection - Back Exam Back exam: NORMAL INSPECTION - Neurological Exam Neurological exam: Alert - Skin Skin Exam: Dry, Pallor Results - Vital Signs Recent Vital Signs: Last Vital Signs Temp 98.1 F 10/14/16 16:14 Pulse 91 H 10/15/16 08:09 Resp 19 10/14/16 16:14 BP 147/66 10/15/16 08:09 Pulse Ox 98 10/14/16 10:29 Assessment & Plan - Assessment and Plan (Free Text) Assessment: 86 year old female with history of COPD,emphysema, HTN, pulmonary hypertension, squamous cell carcinoma of lung who is currently in [facility] for deconditioning. The patient states she is feeling better than last week Her shortness of breath is at her baseline. She denies pain, nausea, vomiting, anorexia or weight loss. The patient states her family is very supportive. When asked if she had a Living Will she said that she did not. I initiated discussion about goals of care and advance care planning. The patient became uncomfortable and did not wish to continue the conversation. Reassured, psychosocial support given.. Will meet with patient's daughter's to discuss future goals of care. Plan: Advance care planning
[2016-10-15] MEDS: POLYETHYLENE GLYCOL 3350 17 GM/Dose PACKET PO SCH (09:51)
--- NOTE | 2016-10-15 21:03 | CP.PCM.PN ---
Subjective - Date & Time of Evaluation Date of Evaluation: 10/15/16 Time of Evaluation: 10:20 - Subjective Subjective: Comfortable, afebrile, not in distress. Objective - Vital Signs/Intake and Output Vital Signs (last 24 hours): Temp Pulse Resp BP Pulse Ox 98.3 F 56 L 18 100/56 L 96 10/15/16 16:56 10/15/16 17:48 10/15/16 16:56 10/15/16 17:48 10/15/16 10:00 - Medications Medications: Current Medications Acetylcysteine (Acetylcysteine 20%) 4 ml IH [id number] MARY JANE PRN Reason: Protocol Last Admin: 10/15/16 13:17 Dose: 4 ml Amlodipine Besylate (Norvasc) 10 mg PO DAILY MARY JANE PRN Reason: Protocol Last Admin: 10/15/16 09:52 Dose: Not Given Arformoterol Tartrate (Brovana) 15 mcg IH [id number] [facility] Last Admin: 10/15/16 07:23 Dose: 15 mcg Budesonide (Pulmicort Respules) 0.5 mg IH [id number] MARY JANE PRN Reason: Protocol Last Admin: 10/15/16 07:23 Dose: 0.5 mg Enoxaparin Sodium (Lovenox) 50 mg SC 0600,1800 MARY JANE PRN Reason: Protocol Last Admin: 10/15/16 18:12 Dose: 50 mg Famotidine (Pepcid) 40 mg PO HS MARY JANE PRN Reason: Protocol Last Admin: 10/14/16 21:23 Dose: 40 mg Levalbuterol HCl (Xopenex) 0.63 mg IH Q2H PRN; Protocol PRN Reason: Shortness of Breath Levalbuterol HCl (Xopenex) 0.63 mg IH [id number] MARY JANE PRN Reason: Protocol Last Admin: 10/15/16 13:17 Dose: 0.63 mg Metoprolol Tartrate (Lopressor) 50 mg PO 0800,1800 MARY JANE PRN Reason: Protocol Last Admin: 10/15/16 17:48 Dose: Not Given Polyethylene Glycol (Miralax) 17 gm PO DAILY MARY JANE PRN Reason: Protocol Last Admin: 10/15/16 09:51 Dose: Not Given Prednisone (Prednisone Tab) 20 mg PO DAILY [facility] Last Admin: 10/15/16 09:52 Dose: 20 mg - Constitutional Appears: Non-toxic, No Acute Distress - Head Exam Head Exam: NORMAL INSPECTION - Respiratory Exam Respiratory Exam: Decreased Breath Sounds - Cardiovascular Exam Cardiovascular Exam: +S1, +S2 - GI/Abdominal Exam GI & Abdominal Exam: Soft. absent: Tenderness Assessment and Plan - Assessment and Plan (Free Text) Plan: Assessment S/P Systemic Inflammatory Response Syndrome, S/P treatment for community- acquired pneumonia with associated right sided pleural effusion in this patient presenting with right lung complete opacification with right bronchial obstruction from an endobroncial lesion suspicious for malignancy S/P thoracentesis COPD right arm ecchymoses and swelling related to IV line site Plan completed course of antibiotics; will monitor off antibiotics since she is at risk for hospital-acquired infections
[2016-10-16] MEDS: Acetylcysteine 20% Inhal Soln (4ml) IH SCH ×4 (02:00→20:04)
[2016-10-16] MEDS: Levalbuterol 0.63 MG/3 ML Inhal Soln UD IH SCH ×4 (02:00→20:05)
[2016-10-16] MEDS: Enoxaparin 60 mg Syringe SC SCH (06:14)
[2016-10-16] MEDS: Arformoterol 15 mcg/2 ml Inh Sol IH SCH ×2 (07:42→20:04)
[2016-10-16] MEDS: Budesonide 0.5 mg/2 ml Inhal Susp UD IH SCH ×2 (07:42→20:05)
[2016-10-16] MEDS: POLYETHYLENE GLYCOL 3350 17 GM/Dose PACKET PO SCH (10:44)
[2016-10-16] MEDS: Enoxaparin 30 mg Syringe SC SCH (10:44)
--- NOTE | 2016-10-16 13:11 | PN ---
DATE: 10/16/2016 SUBJECTIVE: The patient has no complaints of any chest pain. No shortness of breath. No headaches or dizziness. PHYSICAL EXAMINATION: VITAL SIGNS: Temperature is 98.3, pulse of 100, blood pressure 117/68, respirations 18. GENERAL: The patient is lying in bed, flat, comfortable. HEENT: No oral lesion. Anicteric sclerae. Moist mucosa. NECK: No JVD, adenopathy, or thyromegaly. CARDIOVASCULAR: S1 and S2, regular. No murmurs, rubs, or gallops. LUNGS: Clear to auscultation bilaterally. No wheeze, rales, or rhonchi. ABDOMEN: Bowel sounds are positive, soft, nontender and nondistended. EXTREMITIES: No cyanosis, clubbing or edema. ASSESSMENT: 1. Right lung mass. 2. Right pleural effusion, status post thoracentesis. 3. Chronic obstructive pulmonary disease. 4. Hyponatremia, resolved. 5. Hypokalemia, resolved. 6. Hypertension, resolved. PLAN: The patient is currently comfortable. She states she is breathing well. She was seen by palliative care, Aaliyah Mcdaniel, yesterday. There were discussions about goals of care and advanced care planning. The patient is receiving metoprolol. She is going to continue with Lovenox for anticoagulation. She is being followed by cardiology. She is on Norvasc for hypertension. She is receiving prednisone daily. Her last EKG was sinus rhythm. Rick Knight MD
--- NOTE | 2016-10-16 14:33 | PN ---
DATE: 10/16/2016 PULMONARY PROGRESS NOTE SUBJECTIVE: The patient remains comfortable as per Dr. Love's note. There is no dyspnea at rest. The patient has no complaints, although she is frail and weak according to Dr. Love, I concur and notes that she is clinically deteriorating even without seeing her previously. PHYSICAL EXAMINATION: VITAL SIGNS: Stable. She has no fever, but is hypotensive. Her oxygenation is good on nasal cannula supplemental oxygen. HEENT: Normocephalic, atraumatic. NECK: Supple. No JVD. No bruits. CARDIOVASCULAR: Regular rhythm. S1 and S2. Soft systolic ejection murmur at the lower left sternal border. There was no gallop. LUNGS: Revealed minimal scattered rhonchi, but no wheezing or rales. ABDOMEN: Soft. Bowel sounds are normoactive without mass, guarding, rebound, or organomegaly. EXTREMITIES: Reveal no clubbing, cyanosis, or edema. There is no Annmarie's sign. SKIN: Shows no rash or excoriation. Lymphadenopathy is present, shaggy nose in the neck, armpit, axillae, and inguinal areas. The supraclavicular areas are hard to identify. NEUROLOGIC: Limited at this time, but no gross focalities seemed to be found. LABORATORY DATA: Completed show sputum with significant amount of malignant cells. Pleural fluid cytology remains pending. CLINICAL IMPRESSION: 1. Advanced lung disease. 2. Significant metastatic disease. 3. Large pleural effusion, awaiting cytology. 4. Chronic obstructive pulmonary disease. 5. Cardiac arrhythmias. The patient's overall prognosis is guarded with his stage IV disease. PLAN: I strongly suggest getting an oncologist involved to discuss with the patient long-term plans and code status. She is weak and frail as described above. It is my belief that she will continue to deteriorate. I do not see the need to decrease oral steroids much in the view of the fact that these may be helping her. Oncology will need to get involved regarding pleural effusion considering chest tube or other drainage procedures. For comfort diagnosis is already made. We would be happy to discuss these problems with you, but we will follow as needed. PROGNOSIS: Grim. We will discuss with Dr. Knight today. John Crawford MD [facility] # [id number]
[2016-10-17] MEDS: Acetylcysteine 20% Inhal Soln (4ml) IH SCH ×4 (01:18→13:12)
[2016-10-17] MEDS: Budesonide 0.5 mg/2 ml Inhal Susp UD IH SCH ×2 (07:25→20:02)
[2016-10-17] MEDS: Levalbuterol 0.63 MG/3 ML Inhal Soln UD IH SCH ×4 (07:25→20:01)
[2016-10-17] MEDS: Arformoterol 15 mcg/2 ml Inh Sol IH SCH ×2 (07:25→19:59)
[2016-10-17] MEDS: POLYETHYLENE GLYCOL 3350 17 GM/Dose PACKET PO SCH (10:02)
[2016-10-17] MEDS: Enoxaparin 30 mg Syringe SC SCH (10:02)
[2016-10-18] MEDS: Levalbuterol 0.63 MG/3 ML Inhal Soln UD IH SCH ×4 (02:34→20:48)
[2016-10-18] MEDS: Acetylcysteine 20% Inhal Soln (4ml) IH SCH ×4 (02:34→20:48)
[2016-10-18] MEDS: Arformoterol 15 mcg/2 ml Inh Sol IH SCH ×2 (07:15→20:48)
[2016-10-18] MEDS: Budesonide 0.5 mg/2 ml Inhal Susp UD IH SCH ×2 (07:15→20:48)
[2016-10-18] MEDS: POLYETHYLENE GLYCOL 3350 17 GM/Dose PACKET PO SCH (09:39)
[2016-10-18] MEDS: Enoxaparin 30 mg Syringe SC SCH (09:49)
--- NOTE | 2016-10-18 15:39 | CP.PCM.PN ---
Subjective - Date & Time of Evaluation Date of Evaluation: 10/18/16 Time of Evaluation: 13:00 - Subjective Subjective: Alert, oriented, offers no complaints Objective - Vital Signs/Intake and Output Vital Signs (last 24 hours): Temp Pulse Resp BP Pulse Ox 98.3 F 91 H 18 121/78 94 L 10/18/16 10:12 10/18/16 10:12 10/18/16 10:12 10/18/16 10:12 10/18/16 10:12 - Medications Medications: Current Medications Acetylcysteine (Acetylcysteine 20%) 4 ml IH [id number] [facility]ARY [facility]ANE PRN Reason: Protocol Last Admin: 10/18/16 13:22 Dose: 4 ml Amlodipine Besylate (Norvasc) 10 mg PO DAILY [facility] PRN Reason: Protocol Last Admin: 10/18/16 09:43 Dose: 10 mg Arformoterol Tartrate (Brovana) 15 mcg IH [id number] [facility] Last Admin: 10/18/16 07:15 Dose: 15 mcg Budesonide (Pulmicort Respules) 0.5 mg IH [id number] M[facility]ANE PRN Reason: Protocol Last Admin: 10/18/16 07:15 Dose: 0.5 mg Enoxaparin Sodium (Lovenox) 30 mg SC 1000 M[facility] JANE PRN Reason: Protocol Last Admin: 10/18/16 09:49 Dose: 30 mg Famotidine (Pepcid) 40 mg PO HS MARY JANE PRN Reason: Protocol Last Admin: 10/17/16 21:09 Dose: 40 mg Levalbuterol HCl (Xopenex) 0.63 mg IH Q2H PRN; Protocol PRN Reason: Shortness of Breath Levalbuterol HCl (Xopenex) 0.63 mg IH [id number] MARY JANE PRN Reason: Protocol Last Admin: 10/18/16 13:23 Dose: 0.63 mg Metoprolol Tartrate (Lopressor) 50 mg PO 0800,1800 [facility] PRN Reason: Protocol Last Admin: 10/18/16 07:06 Dose: 50 mg Polyethylene Glycol (Miralax) 17 gm PO DAILY [facility] PRN Reason: Protocol Last Admin: 10/18/16 09:39 Dose: 17 gm Prednisone (Prednisone Tab) 20 mg PO DAILY [facility] Last Admin: 10/18/16 09:41 Dose: 20 mg - Constitutional Appears: Cachectic, Chronically Ill - Eye Exam Eye Exam: Normal appearance, PERRL - ENT Exam ENT Exam: Mucous Membranes Moist - Respiratory Exam Respiratory Exam: Decreased Breath Sounds, NORMAL BREATHING PATTERN - Cardiovascular Exam Cardiovascular Exam: REGULAR RHYTHM, +S1, +S2 - GI/Abdominal Exam GI & Abdominal Exam: Soft, Normal Bowel Sounds - Extremities Exam Extremities Exam: Normal Capillary Refill, Normal Inspection - Skin Skin Exam: Dry, Pallor Assessment and Plan - Assessment and Plan (Free Text) Assessment: 86 year old female with history of right pleural effusion,COPD,new lung mass who was admitted to [facility] for deconditioning. The patient is alert and oriented.She does not wish to discuss goals of care and advance care planning with me. KATIE, Natasha Carver and I spoke with patients daughter's Maribel and Alesia. Daughter' s aware of mother's lung mass and accept that prognosis is guarded. Family does not want to pursue further testing nor do they want to consider palliative treatment of mass. Options for visiting nurse vs BILL vs hospice discussed at length. Ramifications/benefits of each service explained. Questions answered. Family wants time to dosucss amongst themselves before making decision. Strongly encouraged daughter's to have their mother appoint health care proxy. Time spent in goals of care discussion with family, 45 minutes Plan: Palliative support Advance care planning
--- NOTE | 2016-10-18 22:55 | PN ---
DATE: 10/18/2016 SUBJECTIVE: Patient has no complaints of any chest pain or shortness of breath, headaches, or dizziness. PHYSICAL EXAMINATION VITAL SIGNS: Temperature is 97.9, pulse of 100, blood pressure 111/60, respirations 20. GENERAL: The patient is lying in bed, flat, comfortable. HEENT: No oral lesion. Anicteric sclerae. Moist mucosa. NECK: No JVD, adenopathy, or thyromegaly. CARDIOVASCULAR: S1 and S2, regular. No murmurs, rubs, or gallops. LUNGS: Clear to auscultation bilaterally. No wheeze, rales, or rhonchi. ABDOMEN: Bowel sounds are positive, soft, nontender and nondistended. EXTREMITIES: no cyanosis, clubbing or edema. ASSESSMENT AND PLAN: 1. Right lung mass. 2. Right pleural effusion status post thoracentesis. 3. Chronic obstructive pulmonary disease. 4. Hyponatremia, resolved. 5. Hypokalemia, improved. 6. Hypertension, stable. PLAN: The patient is on acetylcysteine for her breathing. She is on metoprolol. She is on 20 mcg Brovana for her breathing. She is on Miralax for constipation. She is on amlodipine for hypertension. She is on steroids at 20 mg daily. She is being followed by Aaliyah Mcdaniel from palliative care. There were discussions with both the patient's daughters regarding advanced planning. Rick Knight MD
[2016-10-19] MEDS: Levalbuterol 0.63 MG/3 ML Inhal Soln UD IH SCH ×4 (01:04→20:17)
[2016-10-19] MEDS: Acetylcysteine 20% Inhal Soln (4ml) IH SCH ×4 (01:04→20:16)
[2016-10-19] MEDS: Budesonide 0.5 mg/2 ml Inhal Susp UD IH SCH ×2 (07:26→20:17)
[2016-10-19] MEDS: Arformoterol 15 mcg/2 ml Inh Sol IH SCH ×2 (07:26→20:17)
[2016-10-19] MEDS: Enoxaparin 30 mg Syringe SC SCH (11:50)
[2016-10-19] MEDS: POLYETHYLENE GLYCOL 3350 17 GM/Dose PACKET PO SCH (11:50)
--- NOTE | 2016-10-19 15:42 | CP.PCM.PN ---
Subjective - Date & Time of Evaluation Date of Evaluation: 10/19/16 Time of Evaluation: 11:40 - Subjective Subjective: Comfortable on a chair, not in distress, still with cough but less, no SOB at rest, afebrile. Objective - Vital Signs/Intake and Output Vital Signs (last 24 hours): Temp Pulse Resp BP Pulse Ox 97.9 F 52 L 20 115/73 99 10/19/16 10:24 10/19/16 10:24 10/19/16 10:24 10/19/16 11:50 10/19/16 06:00 Intake and Output: 10/19/16 10/19/16 06:59 18:59 Intake Total 600 Balance 600 - Medications Medications: Current Medications Acetylcysteine (Acetylcysteine 20%) 4 ml IH [id number] MARY JANE PRN Reason: Protocol Last Admin: 10/19/16 13:11 Dose: 4 ml Amlodipine Besylate (Norvasc) 10 mg PO DAILY [facility] PRN Reason: Protocol Last Admin: 10/19/16 11:50 Dose: 10 mg Arformoterol Tartrate (Brovana) 15 mcg IH [id number] [facility] Last Admin: 10/19/16 07:26 Dose: 15 mcg Budesonide (Pulmicort Respules) 0.5 mg IH [id number] [facility] PRN Reason: Protocol Last Admin: 10/19/16 07:26 Dose: 0.5 mg Enoxaparin Sodium (Lovenox) 30 mg SC 1000 MARY JANE PRN Reason: Protocol Last Admin: 10/19/16 11:50 Dose: 30 mg Famotidine (Pepcid) 40 mg PO HS [facility] PRN Reason: Protocol Last Admin: 10/18/16 22:30 Dose: 40 mg Levalbuterol HCl (Xopenex) 0.63 mg IH Q2H PRN; Protocol PRN Reason: Shortness of Breath Levalbuterol HCl (Xopenex) 0.63 mg IH [id number] [facility] PRN Reason: Protocol Last Admin: 10/19/16 13:11 Dose: 0.63 mg Metoprolol Tartrate (Lopressor) 50 mg PO 0800,1800 [facility] PRN Reason: Protocol Last Admin: 10/19/16 08:51 Dose: Not Given Polyethylene Glycol (Miralax) 17 gm PO DAILY [facility] PRN Reason: Protocol Last Admin: 10/19/16 11:50 Dose: 17 gm Prednisone (Prednisone Tab) 20 mg PO DAILY [facility] Last Admin: 10/19/16 11:50 Dose: 20 mg - Constitutional Appears: Non-toxic, No Acute Distress - Head Exam Head Exam: NORMAL INSPECTION - ENT Exam ENT Exam: Mucous Membranes Moist - Neck Exam Neck Exam: absent: Meningismus - Respiratory Exam Respiratory Exam: Decreased Breath Sounds - Cardiovascular Exam Cardiovascular Exam: +S1, +S2 - GI/Abdominal Exam GI & Abdominal Exam: Soft. absent: Tenderness Assessment and Plan - Assessment and Plan (Free Text) Plan: Assessment S/P Systemic Inflammatory Response Syndrome, S/P treatment for community- acquired pneumonia with associated right sided pleural effusion in this patient presenting with right lung complete opacification with right bronchial obstruction from an endobroncial lesion suspicious for malignancy S/P thoracentesis COPD right arm ecchymoses and swelling related to IV line site Plan completed course of antibiotics; will monitor off antibiotics since she is at risk for healthcare-associated infections
[2016-10-20] MEDS: Levalbuterol 0.63 MG/3 ML Inhal Soln UD IH SCH ×4 (02:10→21:42)
[2016-10-20] MEDS: Acetylcysteine 20% Inhal Soln (4ml) IH SCH ×4 (02:10→21:40)
[2016-10-20] MEDS: Budesonide 0.5 mg/2 ml Inhal Susp UD IH SCH ×2 (07:24→21:41)
[2016-10-20] MEDS: Arformoterol 15 mcg/2 ml Inh Sol IH SCH ×2 (07:24→21:41)
[2016-10-20] MEDS: POLYETHYLENE GLYCOL 3350 17 GM/Dose PACKET PO SCH (09:29)
[2016-10-20] MEDS: Enoxaparin 30 mg Syringe SC SCH (09:31)
[2016-10-21] MEDS: Acetylcysteine 20% Inhal Soln (4ml) IH SCH ×3 (02:10→13:10)
--- NOTE | 2016-10-21 04:37 | DS ---
DATE: 10/20/2016 HISTORY OF PRESENT ILLNESS: The patient is an 86-year-old female who had come in to the transitional care unit for rehabilitation. She was found to have a right lung mass. She did not have a biopsy, most likely it is cancer. There was extensive discussion with the executive casino host, family as well as palliative care. The patient is not going home on hospice. She has no headaches or dizziness. No nausea or vomiting. No fevers. She has no abdominal pain, no back pain, no dysuria or frequency. PHYSICAL EXAMINATION: VITAL SIGNS: Temperature is 97.7, pulse 92, blood pressure 126/61. GENERAL: The patient is lying in bed, flat, comfortable. HEENT: No oral lesion. Anicteric sclerae. Moist mucosa. NECK: No JVD, adenopathy, or thyromegaly. CARDIOVASCULAR: S1 and S2, regular. No murmurs, rubs, or gallops. LUNGS: Clear to auscultation bilaterally. No wheeze, rales, or rhonchi. ABDOMEN: Bowel sounds are positive, soft, nontender and nondistended. EXTREMITIES: no cyanosis, clubbing or edema. ASSESSMENT: 1. Right lung mass. 2. Right pleural effusion status post thoracentesis. 3. Chronic obstructive pulmonary disease. 4. Hyponatremia, resolved. 5. Hypokalemia, improved. 6. Hypertension, stable. PLAN: The patient is on Brovana, is going to be on metoprolol. The patient is to continue Lovenox for DVT prophylaxis. The patient is on Miralax for constipation and Norvasc for hypertension. She is on prednisone daily. We will discontinue the patient's prednisone at this point. Condition is stable. Activities increased as tolerated. Discharged. Follow up as an outpatient with Dr. Pedraza. Rick Knight MD
[2016-10-21] MEDS: Arformoterol 15 mcg/2 ml Inh Sol IH SCH (07:58)
[2016-10-21] MEDS: Budesonide 0.5 mg/2 ml Inhal Susp UD IH SCH (07:59)
[2016-10-21] MEDS: Levalbuterol 0.63 MG/3 ML Inhal Soln UD IH SCH ×2 (07:59→13:10)
[2016-10-21 10:31] VITALS: BP 123/66; PULSE 82; RESP 20; TEMP 98.3; O2SAT 98
[2016-10-21] MEDS: Enoxaparin 30 mg Syringe SC SCH (11:00)
[2016-10-21] MEDS: POLYETHYLENE GLYCOL 3350 17 GM/Dose PACKET PO SCH (11:00)
== END 2016-10-21 13:53 | disposition home or self-care (01) | DRG 180 ==
LOC: TRCU 14:22
PROVIDERS: ADMIT Internal Medicine Nephrology; ATTEND Internal Medicine Nephrology
PROC: F07Z9FZ Gait Training/Functional Ambulation Treatment using Assistive, Adaptive, Supportive or Protective Equipment (ICD-10-PCS; principal; 2016-10-14)
PROC: F07M6ZZ Therapeutic Exercise Treatment of Musculoskeletal System - Whole Body (ICD-10-PCS; 2016-10-14)
PROC: F08Z4ZZ Home Management Treatment (ICD-10-PCS; 2016-10-14)
DX: C34.91 Malignant neoplasm of unspecified part of right bronchus or lung (principal); J18.9 Pneumonia, unspecified organism; C79.9 Secondary malignant neoplasm of unspecified site; I11.0 Hypertensive heart disease with heart failure; R65.10 Systemic inflammatory response syndrome (SIRS) of non-infectious origin without acute organ dysfunction; J44.0 Chronic obstructive pulmonary disease with (acute) lower respiratory infection; I27.2 Other secondary pulmonary hypertension; J90 Pleural effusion, not elsewhere classified; I50.9 Heart failure, unspecified; E87.1 Hypo-osmolality and hyponatremia; J98.11 Atelectasis; J44.9 Chronic obstructive pulmonary disease, unspecified; I48.91 Unspecified atrial fibrillation; E87.6 Hypokalemia; I08.1 Rheumatic disorders of both mitral and tricuspid valves; J20.9 Acute bronchitis, unspecified; J98.09 Other diseases of bronchus, not elsewhere classified; R53.81 Other malaise; Z87.891 Personal history of nicotine dependence; R39.15 Urgency of urination; R58 Hemorrhage, not elsewhere classified; Y84.8 Other medical procedures as the cause of abnormal reaction of the patient, or of later complication, without mention of misadventure at the time of the procedure; I49.9 Cardiac arrhythmia, unspecified

== ENCOUNTER 2016-11-17 13:22 | Inpatient (IN) | payer MEDICARE, OTHER ==
[2016-11-17 14:20] LABS: BASO # 0.02 K/mm3 (0.0-2.0); BASO % 0.2 % (0.0-3.0); EOS % 0.3 % (1.5-5.0); GRAN # 8.61 (1.4-6.5); GRAN % 74.7 % (50.0-68.0); HEMATOCRIT 38.6 % (36.0-48.0); LYMPH % 17.1 % (22.0-35.0); MEAN CELL VOLUME 85.6 fl (80.0-105.0); MEAN CORPUSCULAR HEMOGLOBIN 27.9 pg (25.0-35.0); MEAN CORPUSCULAR HGB CONC 32.6 g/dl (31.0-37.0); MEAN PLATELET VOLUME 9.8 fl (7.0-11.0); MONO # 0.9 (0.1-0.6); MONO % 7.7 % (1.0-6.0); RED CELL DISTRIBUTION WIDTH 14.4 % (11.5-14.5); WHITE BLOOD COUNT 11.5 10^3/ul (4.5-11.0)
[2016-11-17 14:28] LABS: ALB/GLOB RATIO 1.2 (1.1-1.8); ALKALINE PHOSPHATASE 72 U/L (38-126); ALT/SGPT 35 U/L (7-56); AST/SGOT 22 U/L (14-36); BILIRUBIN,TOTAL 0.4 mg/dL (0.2-1.3); BLOOD UREA NITROGEN 9 mg/dL (7-21); CARBON DIOXIDE 39 mmol/L (21-33); CHLORIDE 86 mmol/L (98-107); GFR AFRICAN-AMERICAN > 60; GLUCOSE,RANDOM 115 mg/dL (70-110); LIPASE 41 U/L (23-300); MAGNESIUM 1.5 mg/dL (1.7-2.2); POTASSIUM 3.6 mmol/L (3.6-5.0); SODIUM 132 mmol/L (132-148); TOTAL PROTEIN 6.7 g/dL (5.8-8.3)
--- NOTE | 2016-11-17 14:28 | ED PDOC ---
Arrival/HPI - General Historian: Patient, Family EM Caveat: Acuity of Condition - History of Present Illness Time/Duration: Prior to Arrival Symptom Onset: Gradual Symptom Course: Worsening Activities at Onset: Rest Context: Home <Myles New - Last Filed: 11/17/16 15:52> <Ramona Purdy - Last Filed: 11/17/16 16:06> - General Chief Complaint: Shortness Of Breath Time Seen by Provider: 11/17/16 13:32 - History of Present Illness Narrative History of Present Illness (Text): Patient is an 86 year old female with past medical history of lung ca and COPD who presents with [facility] 11/17/16 with complaints of shortness of breath which started last night. As per patient's family she also coughs and produced sputum as her baseline. To note, the patient's daughter also mentions that over night her right arm became swollen, and the swelling is also starting to appear on the left arm and hand. Patient was previously admitted on 10/07/16 for same clinical picture except for left UE involvement. Patient was found to have a pleural effusion for which a thoracocentesis was performed by Dr. Steele. Patient currently denies h/a, n/v/d, chest pain, dizziness, weakness. 11/17/16 14:35 (Myles New) Past Medical History - Provider Review Nursing Documentation Reviewed: Yes - Infectious Disease Hx of Infectious Diseases: None - Reproductive Menopause: Yes - Cardiac Hx Congestive Heart Failure: Yes Hx Hypertension: Yes - Pulmonary Hx Chronic Obstructive Pulmonary Disease (COPD): Yes Hx Lung Cancer: Yes - Musculoskeletal/Rheumatological Hx Falls: No - Gastrointestinal Hx Gastrointestinal Disorders: No - Genitourinary/Gynecological Hx Genitourinary Disorders: (URGENCY) Hx Reproductive Disorders: No - Psychiatric Hx Substance Use: No - Anesthesia Hx Anesthesia Reactions: No <Myles New - Last Filed: 11/17/16 15:52> Family/Social History - Physician Review Nursing Documentation Reviewed: Yes Family/Social History: Other Smoking Status: Former Smoker Hx Alcohol Use: No Hx Substance Use: No <Myles New - Last Filed: 11/17/16 15:52> Allergies/Home Meds <Myles New - Last Filed: 11/17/16 15:52> <Ramona Purdy - Last Filed: 11/17/16 16:06> Allergies/Adverse Reactions: Allergies No Known Allergies Allergy (Verified 11/17/16 13:37) Home Medications: Home Meds Medication Instructions Recorded Confirmed Albuterol Sulfate [Proair Hfa] 0.09 mg IH DAILY PRN 10/07/16 11/17/16 Brimonidine 0.15% [Alphagan P 1 drop OP TID 10/07/16 11/17/16 0.15% Opht] Dorzolamide HCl 1 drop OP BID 10/07/16 11/17/16 Furosemide [Lasix] 20 mg PO PRN 10/07/16 11/17/16 Latanoprost 0.005% Opht [Xalatan 1 drp OP HS 10/07/16 11/17/16 Opht] Salmeterol Xinafoate/Fluticaso 2 puff IH AMHS 10/07/16 11/17/16 [Advair Hfa 230-21] Review of Systems - Physician Review All systems were reviewed & negative as marked: Yes - Review of Systems Systems not reviewed;Unavailable: Acuity of Condition Constitutional: absent: Fatigue, Fevers Eyes: absent: Vision Changes ENT: Normal. absent: Hearing Changes, Tinnitus Respiratory: SOB, Cough, Sputum. absent: Wheezing Cardiovascular: absent: Chest Pain, Palpitations Gastrointestinal: absent: Abdominal Pain, Stool Changes, Diarrhea, Nausea, Vomiting Skin: absent: Rash, Pruritis Neurological: absent: Headache, Dizziness, Focal Weakness Psychiatric: Normal <Myles New - Last Filed: 11/17/16 15:52> Physical Exam Vital Signs Reviewed: Yes Temperature: Afebrile Blood Pressure: Normal Pulse: Regular Respiratory Rate: Normal Appearance: Positive for: Well-Appearing Pain Distress: None Mental Status: Positive for: Alert and Oriented X 3 - Systems Exam Head: Present: Atraumatic, Normocephalic Extroacular Muscles: Present: EOMI Conjunctiva: Present: Normal Mouth: Present: Moist Mucous Membranes Respiratory/Chest: Present: Respiratory Distress, Rhonchi. No: Clear to Auscultation (B/L rhonchi appreciated in upper lobes), Good Air Exchange ( decreased air exchange on lower lobes B/L), Wheezes Cardiovascular: No: Regular Rate and Rhythm, Normal S1, S2 Abdomen: Present: Normal Bowel Sounds. No: Tenderness, Distention Upper Extremity: Present: Edema (B/L lymphedema in upper extremities, more extensive on right arm. ), NORMAL PULSES. No: Normal Inspection, Cyanosis, Tenderness Skin: Present: Warm, Normal Color Psychiatric: Present: Alert, Oriented x 3 <Myles New - Last Filed: 11/17/16 15:52> Medical Decision Making - Lab Interpretations I have reviewed the lab results: Yes - RAD Interpretation Biological Science Technician: Radiologist - EKG Interpretation Interpreted by ED Physician: Yes Type: 12 lead EKG <Myles New - Last Filed: 11/17/16 15:52> <Ramona Purdy - Last Filed: 11/17/16 16:06> ED Course and Treatment: Assessment 86 year old female with history of Lung ca presenting with B/L UE edema more pronounced on the right found to have right sided pleural effusion Plan - CXR - B/L UE venous dopplers - CBC, CMP - Lasix - Duonebs, Breathing treatments - Mg repletion - Thoracocentesis 11/17/16 15:13 (Myles New) 11/17/16 Patient Seen With Resident: In agreement with resident note which contains more details about the patient. Patient was seen and evaluated with resident. Came up with plan and treatment together. 11/17/16 16:03 Patient with noted history with tachypnea and large pleural effusion - will need thoracentesis (as well as continued diuretic use) - spoke with Dr. Crawford, covering Dr. Love, who said to contact Dr. Hillman. Consult placed for Dr. Skyler Hillman. Case discussed with Dr. Knight for observation in the hospital on his service. (Ramona Purdy) - Lab Interpretations Lab Results: 11/17/16 14:14 11/17/16 14:14 Lab Results 11/17/16 14:14: Sodium 132, Potassium 3.6, Chloride 86 L, Carbon Dioxide 39 H, Anion Gap 11, BUN 9, Creatinine 0.7, Est GFR ( Amer) > 60, Est GFR (Non- Af Amer) > 60, Random Glucose 115 H, Calcium 9.0, Magnesium 1.5 L, Total Bilirubin 0.4, AST 22, ALT 35, Alkaline Phosphatase 72, Lactate Dehydrogenase 396, Total Creatine Kinase 21 L, Troponin I < 0.01, NT-Pro-B Natriuret Pep 383, Total Protein 6.7, Albumin 3.7, Globulin 3.1, Albumin/Globulin Ratio 1.2, Lipase 41 11/17/16 14:14: WBC 11.5 H D, RBC 4.51, Hgb 12.6, Hct 38.6, MCV 85.6, MCH 27.9, MCHC 32.6, RDW 14.4, Plt Count 411, MPV 9.8, Gran % 74.7 H, Lymph % (Auto) 17.1 L, Sampson % (Auto) 7.7 H, Eos % (Auto) 0.3 L, Baso % (Auto) 0.2, Gran # 8.61 H, Lymph # 2.0, Sampson # 0.9 H, Eos # 0.0, Baso # 0.02 - RAD Interpretation Radiology Orders: 11/17/16 14:03 CHEST PORTABLE [RAD] Stat 11/17/16 14:04 DUPLEX UPPER EXTRM VEIN BILAT [US] Stat - Medication Orders Current Medication Orders: Discontinued Medications Albuterol/Ipratropium (Duoneb 3 Mg/0.5 Mg (3 Ml) Ud) 3 ml IH Q15M MARY JANE Stop: 11/17/16 15:46 Last Admin: 11/17/16 15:56 Dose: 3 ml Furosemide (Lasix) 20 mg IVP STAT STA Stop: 11/17/16 15:06 Last Admin: 11/17/16 15:56 Dose: 20 mg Magnesium Sulfate 2 gm/ Sodium (Chloride) 104 mls @ 102 mls/hr IV ONCE ONE Stop: 11/17/16 15:35 Last Admin: 11/17/16 15:19 Dose: 102 mls/hr Magnesium Sulfate 2 gm/ Sodium (Chloride) 104 mls @ 102 mls/hr IV ONCE ONE Stop: 11/17/16 15:49 - PA / PRESS WASHER / Resident Statement ADALID has reviewed & agrees with the documentation as recorded. ADALID has examined the patient and agrees with the treatment plan. <Ramona Purdy - Last Filed: 11/17/16 16:06> Disposition/Present on Arrival - Present on Arrival Any Indicators Present on Arrival: No History of DVT/PE: No History of Uncontrolled Diabetes: No Urinary Catheter: No History of Decub. Ulcer: No History Surgical Site Infection Following: None - Disposition Have Diagnosis and Disposition been Completed?: Yes Disposition Time: 16:01 Patient Plan: Admission <Myles New - Last Filed: 11/17/16 15:52> - Disposition Disposition Time: 15:04 <Ramona Purdy - Last Filed: 11/17/16 16:06> - Disposition Diagnosis: Malignant pleural effusion Disposition: HOSPITALIZED Patient Problems: Current Active Problems Problem Status Onset Malignant pleural effusion Acute Condition: SERIOUS
[2016-11-17] MEDS ORDERED: Magnesium Sulfate 2 GM in Sodium Chloride 0.9% 100 ML IV ONE ×2 (14:34→14:48)
[2016-11-17 14:40] LABS: TROPONIN I < 0.01 ng/mL
--- NOTE | 2016-11-17 15:09 | RAD ---
HISTORY: sob COMPARISON: CT of the chest 10/11/2016 FINDINGS: LUNGS: There is complete opacification of the right lung. As seen on previous CT this is due to a right-sided mass with consolidation and effusion. PLEURA: As above CARDIOVASCULAR: Normal. OSSEOUS STRUCTURES: No significant abnormalities. VISUALIZED UPPER ABDOMEN: Normal. OTHER FINDINGS: None. IMPRESSION: No change in right lung consolidation .
[2016-11-17] MEDS: Albuterol-Ipratrop 3 mg / 0.5 (3 ml) UD IH SCH ×2 (15:56→16:20)
--- NOTE | 2016-11-17 18:09 | US ---
HISTORY: Arm pain and swelling. Evaluate for deep venous thrombosis. PHYSICIAN(S): Skyler Hillman MD. FINDINGS: The visualized internal jugular veins are sonographically normal and compressible. No evidence of obstruction or thrombus this is seen. The visualized segments of the subclavian veins are patent with normal waveforms. No sonographic evidence of obstruction or thrombosis is seen. The visualized deep venous systems of both upper extremities proximally are sonographically normal and compressible. IMPRESSION: 1. No sonographic evidence for deep venous thrombosis in the visualized segments of both upper strategies.
--- NOTE | 2016-11-17 18:58 | CP.PCM.PN ---
Subjective - Date & Time of Evaluation Date of Evaluation: 11/17/16 Time of Evaluation: 18:56 - Subjective Subjective: Patient was seen at bedside. She has atrial flutter on rhythm strip that I was shown. Rate on monitor is 129/min, atrial fibrillation. She has no symptoms now. Denies chest pain , sob, nausea, sweating , palpitations. Mag 1.5 @ 2.14 pm. Received magnesium sulfat after that. This 86 year old white woman was admitted with sob, sputum production , right arm swelling, has right pleural effusion requiring thoracentesis. Has PMH of COPD, atrial fibrillation, lung cancer, CHF,HTN, Ex smoker, urinary urgency. Objective - Vital Signs/Intake and Output Vital Signs (last 24 hours): Temp Pulse Resp BP Pulse Ox 97.3 F L 105 H 18 92/56 L 92 L 11/17/16 17:38 11/17/16 18:25 11/17/16 17:38 11/17/16 17:38 11/17/16 17:38 - Medications Medications: Current Medications Brimonidine Tartrate (Alphagan P 0.15% Opht) 1 drop OD TID MARY JANE Dorzolamide HCl (Trusopt) 0 ml OD BID MARY JANE Latanoprost (Xalatan Opht) 0.05 ml OD HS MARY JANE Metoprolol Tartrate (Lopressor) 50 mg PO 0800,1800 MARY JANE Last Admin: 11/17/16 18:25 Dose: 50 mg Non-Formulary Medication (Salmeterol Xinafoate/Fluticaso [Advair Hfa 230-21]) 2 puff IH [facility] - Labs Labs: Most Recent Lab Values WBC 11.5 10^3/ul (4.5-11.0) H D 11/17/16 14:14 RBC 4.51 10^6/uL (3.5-6.1) 11/17/16 14:14 Hgb 12.6 g/dL (12.0-16.0) 11/17/16 14:14 Hct 38.6 % (36.0-48.0) 11/17/16 14:14 MCV 85.6 fl (80.0-105.0) 11/17/16 14:14 MCH 27.9 pg (25.0-35.0) 11/17/16 14:14 MCHC 32.6 g/dl (31.0-37.0) 11/17/16 14:14 RDW 14.4 % (11.5-14.5) 11/17/16 14:14 Plt Count 411 10^3/uL (120.0-450.0) 11/17/16 14:14 MPV 9.8 fl (7.0-11.0) 11/17/16 14:14 Gran % 74.7 % (50.0-68.0) H 11/17/16 14:14 Lymph % (Auto) 17.1 % (22.0-35.0) L 11/17/16 14:14 [place] % (Auto) 7.7 % (1.0-6.0) H 11/17/16 14:14 Eos % (Auto) 0.3 % (1.5-5.0) L 11/17/16 14:14 Baso % (Auto) 0.2 % (0.0-3.0) 11/17/16 14:14 Gran # 8.61 (1.4-6.5) H 11/17/16 14:14 Lymph # 2.0 (1.2-3.4) 11/17/16 14:14 [place] # 0.9 (0.1-0.6) H 11/17/16 14:14 Eos # 0.0 (0.0-0.7) 11/17/16 14:14 Baso # 0.02 K/mm3 (0.0-2.0) 11/17/16 14:14 Sodium 132 mmol/L (132-148) 11/17/16 14:14 Potassium 3.6 mmol/L (3.6-5.0) 11/17/16 14:14 Chloride 86 mmol/L (98-107) L 11/17/16 14:14 Carbon Dioxide 39 mmol/L (21-33) H 11/17/16 14:14 Anion Gap 11 (10-20) 11/17/16 14:14 BUN 9 mg/dL (7-21) 11/17/16 14:14 Creatinine 0.7 mg/dL (0.5-1.4) 11/17/16 14:14 Est GFR ( Amer) > 60 11/17/16 14:14 Est GFR (Non-Af Amer) > 60 11/17/16 14:14 Random Glucose 115 mg/dL (70-110) H 11/17/16 14:14 Calcium 9.0 mg/dL (8.4-10.5) 11/17/16 14:14 Magnesium 1.5 mg/dL (1.7-2.2) L 11/17/16 14:14 Total Bilirubin 0.4 mg/dL (0.2-1.3) 11/17/16 14:14 AST 22 U/L (14-36) 11/17/16 14:14 ALT 35 U/L (7-56) 11/17/16 14:14 Alkaline Phosphatase 72 U/L (38-126) 11/17/16 14:14 Lactate Dehydrogenase 396 U/L (333-699) 11/17/16 14:14 Total Creatine Kinase 21 U/L (35-230) L 11/17/16 14:14 Troponin I < 0.01 ng/mL 11/17/16 14:14 NT-Pro-B Natriuret Pep 383 pg/mL (0-450) 11/17/16 14:14 Total Protein 6.7 g/dL (5.8-8.3) 11/17/16 14:14 Albumin 3.7 g/dL (3.0-4.8) 11/17/16 14:14 Globulin 3.1 gm/dL 11/17/16 14:14 Albumin/Globulin Ratio 1.2 (1.1-1.8) 11/17/16 14:14 Lipase 41 U/L (23-300) 11/17/16 14:14 - Constitutional Appears: Well, No Acute Distress - Head Exam Head Exam: ATRAUMATIC, NORMAL INSPECTION, NORMOCEPHALIC - Eye Exam Eye Exam: Normal appearance - ENT Exam ENT Exam: Normal External Ear Exam - Neck Exam Neck Exam: Normal Inspection - Respiratory Exam Respiratory Exam: Clear to Ausculation Bilateral, NORMAL BREATHING PATTERN - Cardiovascular Exam Cardiovascular Exam: Tachycardia, Irregular Rhythm, +S1 (Normal.), +S2 (Normal.) . absent: JVD - GI/Abdominal Exam GI & Abdominal Exam: Normal Bowel Sounds - Rectal Exam Rectal Exam: Deferred - Exam Additional comments: Deferred. - Extremities Exam Extremities Exam: Normal Inspection - Back Exam Back Exam: NORMAL INSPECTION - Neurological Exam Neurological Exam: Alert, Oriented x3 - Psychiatric Exam Psychiatric exam: Normal Affect, Normal Mood - Skin Skin Exam: Normal Color Assessment and Plan - Assessment and Plan (Free Text) Assessment: Atrial fibrillation with RVR. Hypomagnesemia. Right sided pleural effusion. HTN. CHF. COPD. Lung cancer. Ex smoker. Plan: Lopressor 50 mg was given earlier which was not helpful. Cardizem 20 mg IV given after which rate broke down to 70/min.I administered 20 mg cardizem IV. BMP, mag, phos, troponin levels. EKG-Atrial fibrillation with RVR, Inferior ischemia. As per nurse , was made aware, cardiology consultation was requested for by him.
[2016-11-17] MEDS: Enoxaparin 30 mg Syringe SC SCH (19:20)
[2016-11-17 19:34] LABS: BLOOD UREA NITROGEN 10 mg/dL (7-21); CALCIUM 8.3 mg/dL (8.4-10.5); CARBON DIOXIDE 34 mmol/L (21-33); CHLORIDE 86 mmol/L (98-107); GFR AFRICAN-AMERICAN > 60; GLUCOSE,RANDOM 140 mg/dL (70-110); MAGNESIUM 2.7 mg/dL (1.7-2.2); PHOSPHOROUS 3.6 mg/dL (2.5-4.5); POTASSIUM 3.8 mmol/L (3.6-5.0); SODIUM 128 mmol/L (132-148)
[2016-11-17 19:46] LABS: TROPONIN I < 0.01 ng/mL
[2016-11-17 20:20] VITALS: BMI 18.3
[2016-11-17] MEDS ORDERED: Pneumococcal 23-Valent Vaccine IM ONE (20:20)
[2016-11-17] MEDS ORDERED: FLUTICASO IH SCH (22:00)
[2016-11-17] MEDS ORDERED: SALMETEROL XINAFOATE IH SCH (22:00)
[2016-11-17] MEDS: Brimonidine 0.15% 50 DROP/5 ML BOTTLE OD SCH (23:21)
[2016-11-17] MEDS: Dorzolamide 2% Opht Sol 10ml OD SCH (23:23)
[2016-11-17] MEDS: Latanoprost 2.5 ml Opht Soln OD SCH (23:24)
[2016-11-18 06:25] LABS: HEMATOCRIT 34.2 % (36.0-48.0); MEAN CELL VOLUME 85.1 fl (80.0-105.0); MEAN CORPUSCULAR HEMOGLOBIN 27.4 pg (25.0-35.0); MEAN CORPUSCULAR HGB CONC 32.2 g/dl (31.0-37.0); MEAN PLATELET VOLUME 9.3 fl (7.0-11.0); RED CELL DISTRIBUTION WIDTH 14.5 % (11.5-14.5); WHITE BLOOD COUNT 9.1 10^3/ul (4.5-11.0)
[2016-11-18 06:35] LABS: ALKALINE PHOSPHATASE 57 U/L (38-126); ALT/SGPT 35 U/L (7-56); AST/SGOT 18 U/L (14-36); BILIRUBIN,TOTAL 0.5 mg/dL (0.2-1.3); BLOOD UREA NITROGEN 9 mg/dL (7-21); CALCIUM 8.5 mg/dL (8.4-10.5); CARBON DIOXIDE 37 mmol/L (21-33); CHLORIDE 89 mmol/L (95-110); GFR AFRICAN-AMERICAN > 60; GLUCOSE,RANDOM 93 mg/dL (70-110); MAGNESIUM 2.2 mg/dL (1.7-2.2); PHOSPHOROUS 3.6 mg/dL (2.5-4.5); POTASSIUM 3.5 mmol/L (3.6-5.0); SODIUM 132 mmol/L (132-148); TOTAL PROTEIN 5.9 g/dL (5.8-8.3)
[2016-11-18] MEDS ORDERED: Levalbuterol 0.63 MG/3 ML Inhal Soln UD IH PRN (06:48)
[2016-11-18] MEDS: Enoxaparin 30 mg Syringe SC SCH ×2 (07:52→22:54)
[2016-11-18] MEDS: Levalbuterol 0.63 MG/3 ML Inhal Soln UD IH SCH ×3 (08:37→19:35)
[2016-11-18] MEDS: Budesonide 0.5 mg/2 ml Inhal Susp UD IH SCH ×2 (08:37→19:35)
--- NOTE | 2016-11-18 08:42 | CARD ---
APPROVED REPORT EKG Measurement Heart [id number] <Conclusion> Atrial fibrillation with rapid ventricular response Rightward axis T wave abnormality, consider inferior ischemia or digitalis effect Abnormal ECG
--- NOTE | 2016-11-18 08:50 | CARD ---
APPROVED REPORT EKG Measurement Heart [id number] <Conclusion> Normal sinus rhythm Possible Left atrial enlargement Rightward axis Nonspecific T wave abnormality
[2016-11-18] MEDS: Brimonidine 0.15% 50 DROP/5 ML BOTTLE OD SCH ×3 (09:55→17:40)
[2016-11-18] MEDS: Potassium Chloride 20 mEq ER Tab PO SCH ×2 (09:55→17:43)
[2016-11-18] MEDS: Dorzolamide 2% Opht Sol 10ml OD SCH ×2 (09:57→17:44)
[2016-11-18] MEDS: MethylPREDNISolone 40 mg Vial IVP SCH ×2 (09:57→22:54)
--- NOTE | 2016-11-18 10:02 | CON ---
DATE: 11/18/2016 CONSULTATION INDICATIONS: Shortness of breath, paroxysmal atrial fibrillation. HISTORY OF PRESENT ILLNESS: This is an 86-year-old woman, known to me from prior admission, admitted with shortness of breath as well as upper extremity edema, associated with cough. She is known to have a presumed lung cancer with opacification of her right hemithorax and a benign thoracentesis during her last admission. This is presumed due to a lung cancer, although the patient and family elected not to pursue additional workup at that time. During that admission, she had paroxysmal atrial fibrillation which was ultimately treated with metoprolol. Since admission to telemetry, she has continued to have atrial fibrillation and runs of atrial flutter. She was given Cardizem during the night. This morning, she is in atrial fibrillation with a moderate ventricular response. There has also been runs of atrial flutter. She isresting comfortably. There is no shortness of breath this morning. There is no chest pain, orthopnea, PND, syncope, presyncope, lightheadedness, dizziness, or vertigo. There is no fever, chills, hemoptysis, abdominal pain, nausea, vomiting, diarrhea, constipation, or melena. PAST MEDICAL HISTORY: Notable for COPD. She is a former remote smoker. There is a history of hypertension. An echocardiogram during the last admission revealed normal left ventricular function with mild MR, moderate TR and moderately severe pulmonary hypertension with small pericardial effusion. There is no history of rheumatic fever, myocardial infarction, angina, stroke, TIA, diabetes, or gout. MEDICATIONS: At the time of admission include eye drops for glaucoma, Advair, Lasix, metoprolol, and ProAir. ALLERGIES: THERE ARE NO MEDICATION ALLERGIES REPORTED. FAMILY HISTORY: Noncontributory. SOCIAL HISTORY: She lives at home, she is assisted by her family. She no longer smokes. She does not drink alcohol significantly. REVIEW OF SYSTEMS: A 10-point review of systems is otherwise unremarkable except as noted above. PHYSICAL EXAMINATION GENERAL: She is an elderly woman lying in bed on telemetry, in no acute distress. VITAL SIGNS: Notable for atrial fibrillation with a moderate ventricular response. She is afebrile, 92/56, respiratory rate 18, and O2 sat 92% on nasal cannula. HEENT: Exam reveals no neck vein distention, thyromegaly, or carotid bruits. Mucous membranes are moist. Conjunctivae are pink. NECK: Supple. RESPIRATORY: Lung joy, diminished breath sounds on the right side. Scattered rhonchi on the left. CARDIOVASCULAR: Examination of the heart reveals an irregular rhythm, normal first and second heart sounds, systolic murmur along the lower left sternal border. ABDOMEN: Soft. Bowel sounds present. No mass, organomegaly, tenderness, rebound, guarding, CVA tenderness, palpable abdominal aortic aneurysm. EXTREMITIES: Exam revealed edema of the upper extremities. NEUROLOGIC: She is awake, alert, and oriented. SKIN: Warm and dry. No rash or cellulitis. PSYCHIATRIC: Normal as to mood and affect. LABORATORY AND IMAGING: The chest x-ray reveals opacification of the right lung, basically unchanged. Upper extremity Doppler examination reveals no evidence of DVT in the upper extremities. White count normal, hemoglobin 11, hematocrit 34.2, platelet count normal. Electrolytes are normal with a potassium of 3.5, BUN 9, creatinine 0.7, blood sugar 93. LFTs are unremarkable. Troponins negative x2. CK 21. TSH normal. ASSESSMENT: The patient is an 86-year-old woman with presumed lung cancer, opacification of the right lung with a large right pleural effusion, previously tapped with benign cytology reported, who presents with shortness of breath, upper extremity edema, and paroxysmal atrial fibrillation. PLAN: At this time, she is on telemetry. She has received STAT doses of Cardizem. I will increase her metoprolol to 75 b.i.d. She will undergo pulmonary reevaluation, possible repeat thoracentesis. I will review her old records. I will repeat her echocardiogram predominantly to see if the pericardial effusion has increased. We will follow along with you and make additional recommendations based on her clinical course. Overall, a conservative course of cardiac care is anticipated. Willie Pineda MD MTDYvonne
[2016-11-18 15:25] LABS: INR 0.99 (0.93-1.08); PARTIAL THROMBOPLASTIN TIME 29.3 Seconds (23.7-30.8)
--- NOTE | 2016-11-18 15:29 | CON ---
DATE: 11/18/2016 PULMONARY CONSULTATION REASON FOR CONSULTATION: Pleural effusion. REFERRING PHYSICIAN: Dr. Rick Knight. History is obtained via extensive discussion with the nurse. I have also reviewed the chart at length, and discussed the case with the patient at length. 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 There is no history of chest pain, coughing up of blood, or chest pain - made worse with deep respirations. There is no history of temperatures, chills or infectious exposure. There is no history of night sweats, weight loss or appetite change prior to the above events. No history of leg or calf pains. No history of syncope or diaphoresis. No history of recent travel or trauma. REVIEW OF SYSTEMS: No history of nausea, vomiting, or diarrhea. No acute urinary symptoms. No new neurologic or musculoskeletal complaints. Rest of the review of systems is negative. ALLERGIES: NO KNOWN ALLERGIES. SOCIAL HISTORY: Positive for tobacco and negative for alcohol. FAMILY HISTORY: No inheritable diseases. HOME MEDICATIONS: Include Advair, Lopressor, Lasix, and albuterol HFA. PHYSICAL EXAMINATION: GENERAL: The patient is not short of breath at rest. She is not using accessory muscles for breathing. VITAL SIGNS: Temperature is 97.3, pulse 84, respiratory rate 18, last blood pressure recorded 92/56. Oxygen saturation on nasal cannula 92% to 97%. HEENT: Normocephalic and atraumatic. No JVD. CARDIOVASCULAR: Systolic ejection murmur at the lower left sternal border. No S3 gallop. LUNGS: Bronchial breath sounds, right lung. Scattered rhonchi - left lung. No wheezing. EXTREMITIES: No clubbing, cyanosis or edema. Calves are nontender to palpation. GASTROINTESTINAL: Abdomen is soft, nontender, nondistended. Bowel sounds are positive. SKIN: No acute rash. NEUROLOGIC: Limited at the present time. PERTINENT LABORATORY DATA: Chest x-ray was done yesterday and reviewed. There is complete opacification of the right lung. There was also a recent CAT scan done on 10/11/2016 (post thoracentesis). On that CAT scan, an endobronchial lesion was seen in the right mainstem bronchus. In addition, extensive right hilar adenopathy/mass was noted. The right hilar mass encases the right main pulmonary artery. There remained complete atelectasis of the right lung with a persistent large right pleural effusion. CBC: White count 9.1, hemoglobin 11.0, hematocrit 34.2, and platelets of 331. Complete metabolic profile: Sodium 128, chloride 86, carbon dioxide 34, glucose 140, calcium 8.3, magnesium 2.7. Rest of the metabolic profile is within normal limits. Electrocardiogram was done last night. Results were consistent with rapid atrial fibrillation/atrial flutter. IMPRESSION: 1. Acute bronchitis. 2. Chronic obstructive pulmonary disease. 3. Advanced lung cancer(squamous cell). 4. Recurrent large right pleural effusion. 5. Rapid atrial fibrillation. 6. Mild anemia. PLAN: Again, I did discuss the case with the nurse and the patient at length. The patient presents to with worsening pulmonary symptoms for the past 3 days. As above, I did review the last chest x-ray. There remains complete opacification of the right lung. The patient was admitted to the hospital last month - when she was diagnosed with advanced squamous cell carcinoma of the right lung. As above, the right hilar mass encases the right pulmonary artery. I did discuss the case at length with one of the daughters (Maribel) during the last admission. During that last admission, Maribel did state that the family wants no additional ultra-aggressive measures done. Dr. Skyler Hillman (Interventional Radiology) has been called on the case for a repeat thoracentesis. Dr. Pineda (Cardiology) has also been called on the case because of the rapid atrial fibrillation/flutter. On physical exam, the patient is in mild bronchospasm. She is currently on Advair. I will discontinue the Advair for now, and start a short-acting beta-agonist (Xopenex), as well as inhaled steroids. I will also start low-dose intravenous steroids. The low-dose intravenous steroids do seem to help her significantly during the last admission. The overall status/prognosis for this patient remains very poor. I would consider DNR status at this point in time. I would also consider a possible transfer to hospice given her overall prognosis. The patient was seen by Aaliyah Mcdaniel (Palliative Care) during her last admission. I will discuss the above with Dr. Knight this morning. Thank you very much for this pulmonary consultation. Gabo Love MD MTDD
--- NOTE | 2016-11-18 17:36 | RAD ---
HISTORY: rt thoracentesis COMPARISON: 11/17/2016. Single-view chest. 10/11/2016 CT thorax. Summary of findings on the comparison examination: TECHNIQUE: Chest PA and lateral FINDINGS: LUNGS: Complete opacification of the at right hemithorax a progressive finding compared to the prior CT scan from 10/11/2016. . Compensatory Hyper expansion of the left lung PLEURA: No pneumothorax following thoracentesis. CARDIOVASCULAR: Normal. OSSEOUS STRUCTURES: No significant abnormalities. VISUALIZED UPPER ABDOMEN: Normal. OTHER FINDINGS: None. IMPRESSION: No active disease. No adverse findings following thoracentesis.
[2016-11-18] MEDS ORDERED: Oxycodone/Acetaminophen 5/325 mg Tab PO PRN (18:28)
--- NOTE | 2016-11-18 21:52 | US ---
PROCEDURE: Ultrasound guided right thoracentesis. CLINICAL HISTORY: Advanced right lung CA. Large right pleural effusion with shortness of breath. Needs thoracentesis. PHYSICIAN(S): Skyler Hillman MD. TECHNIQUE: The relative risks and indications of the procedure were explained to the patient and consent obtained. The patient was placed in a sitting position on the stretcher and sonography of the right chest performed. This revealed a moderate to large rightpleural effusion. A right posterolateral intercostal approach was selected and the area prepped and draped usual sterile fashion. 1% Xylocaine was used to anesthetize the skin and soft tissues. A 7 [place] thoracentesis catheter was trocared into the right pleural cavity and 1800of straw-colored fluid was aspirated. No labs were sent. IMPRESSION: 1. Ultrasound guided right thoracentesis. 1800 cc of straw-coloredfluid were aspirated.
[2016-11-18] MEDS: Latanoprost 2.5 ml Opht Soln OD SCH (22:55)
[2016-11-19] MEDS: Levalbuterol 0.63 MG/3 ML Inhal Soln UD IH SCH ×5 (01:40→19:52)
--- NOTE | 2016-11-19 06:21 | HP ---
CHIEF COMPLAINT AND HISTORY OF PRESENT ILLNESS: This is an 86-year-old female who has come in to the hospital with history of squamous cell carcinoma of the lung. She started complaining of shortness of breath yesterday and she states it is progressively getting worse, so she came in for further evaluation. The patient had a chest x-ray done that showed of the right chest. She is to be admitted to get a thoracentesis done. The patient had developed a rapid AFib during the initial hospitalization and she was given IV medications to help slow down her heart. This morning when I saw the patient, she felt well. She had no complaints of any fevers or chills. No nausea. No vomiting. She is not able to give much information about her past medical history. She says she feels well. She has no dizziness. No nausea. No weakness to the arms or the legs. REVIEW OF SYSTEMS: All other review of symptoms are within normal limits, except that was mentioned. ALLERGIES: NO KNOWN DRUG ALLERGIES. MEDICATIONS: Reviewed in the MAR. SOCIAL HISTORY: She did smoke in the past. She denies drug or alcohol abuse. FAMILY HISTORY: Noncontributory. PHYSICAL EXAMINATION: VITAL SIGNS: The patient has a temperature of 97.3, pulse of 84, blood pressure 92/56, respirations 18, height 5 feet 2 inches, weight is 100 pounds, and BMI is 18.3. GENERAL: The patient lying in bed, uncomfortable, and in no acute distress. HEENT: Atraumatic and normocephalic. Anicteric sclerae. Moist mucosa. [place] conjunctivae. No oral lesions. NECK: No JVD, anterior and posterior adenopathy, thyromegaly, or bruits. CARDIOVASCULAR: S1 and S2 regular. No murmur, rubs, or gallop. LUNGS: There is decreased air entry in the right lung field. Good air entry in the left lung field. No wheezes, rales, or rhonchi. ABDOMEN: Bowel sounds are positive. Soft, nontender and nondistended. No hepatosplenomegaly. No rebound and no guarding EXTREMITIES: No cyanosis, clubbing, or edema. NEUROLOGIC: No facial asymmetry. Tongue is midline. No uvula deviation. Power is 5/5 upper extremity and lower extremity. Sensation intact in upper extremity and lower extremity. PSYCHIATRIC: She is awake, alert and oriented x3. No anxiety or depression. She has normal affect. GENITOURINARY: No CVA tenderness. VASCULAR: 2+ pulses in the carotid pulses and pedal pulses. SKIN: No erythema or nodules. SPINE: Shows normal curvature. EXTREMITIES: No Cyanosis and clubbing, no edema. LABORATORY DATA: Labs have been reviewed. White count of 11.5. There is a creatinine of 0.7. Troponin x2 is negative. Duplex Doppler of the upper extremity shows no evidence of DVT. Chest x-ray done shows no infiltrates. EKG done shows a heart rate of 91, left axis deviation, nonspecific ST changes. ASSESSMENT: 1. Shortness of breath secondary to right-sided pleural effusion. 2. Squamous cell carcinoma with malignant effusion. 3. Hyponatremia. 4. Hypertension. 5. Atrial fibrillation. PLAN: The patient is currently comfortable. She is to get a thoracentesis done today. I did speak to Dr. Love regarding the case. The patient did have a thoracentesis and had 1800 mL of clear straw-colored fluid, that is done by Dr. Skyler Hillman. The patient had a repeat chest x-ray done and it shows no active disease. I also have asked Dr. Pineda to follow the patient for the atrial fibrillation. He has ordered an echocardiogram, which was done, the results are pending. I did speak to the patient's daughter this morning to give her an update on the patient's diagnoses and plan of care. I will also get palliative care to evaluate the patient. She is on Lovenox for anticoagulation. Rick Knight MD
--- NOTE | 2016-11-19 07:48 | CP.PCM.PN ---
Subjective - Date & Time of Evaluation Date of Evaluation: 11/19/16 Time of Evaluation: 07:00 - Subjective Subjective: Stable on 2R, s/p t-centesis yesterday yielding 1800 cc straw colored fluid. No CP or SOB. AF with mod. VR during the night. VR ~ 130 this AM. No CP or SOB. V/S noted. AF PE: Lungs: decreased BS riight side Cor: irreg S1S2 Abd.: soft Ext.: no LE edema Neuro.: alert Echo: The peric. effusion is larger but still small. CXR 11/18 post thoracentesis: No change Objective - Vital Signs/Intake and Output Vital Signs (last 24 hours): Temp Pulse Resp BP Pulse Ox 98.2 F 109 H 18 119/60 94 L 11/18/16 16:00 11/18/16 18:00 11/18/16 16:00 11/18/16 16:00 11/18/16 16:00 Intake and Output: 11/19/16 11/19/16 06:59 18:59 Intake Total 0 120 Balance 0 120 - Medications Medications: Current Medications Brimonidine Tartrate (Alphagan P 0.15% Opht) 1 drop OD TID [facility] Last Admin: 11/18/16 17:40 Dose: 1 drop Budesonide (Pulmicort Respules) 0.5 mg IH [id number] [facility] Last Admin: 11/18/16 19:35 Dose: 0.5 mg Dorzolamide HCl (Trusopt) 0 ml OD BID [facility] Last Admin: 11/18/16 17:44 Dose: 1 drop Enoxaparin Sodium (Lovenox) 30 mg SC Q12H [facility] PRN Reason: Protocol Last Admin: 11/18/16 22:54 Dose: 30 mg Latanoprost (Xalatan Opht) 0 ml OD HS [facility] Last Admin: 11/18/16 22:55 Dose: 1 ml Levalbuterol HCl (Xopenex) 0.63 mg IH [id number] [facility] Last Admin: 11/19/16 01:40 Dose: 0.63 mg Levalbuterol HCl (Xopenex) 0.63 mg IH Q2 PRN PRN Reason: Shortness of Breath Methylprednisolone (Solu-Medrol) 20 mg IVP Q12 [facility] Metoprolol Tartrate (Lopressor) 75 mg PO 0800,1800 [facility] Last Admin: 11/18/16 09:56 Dose: 75 mg Oxycodone/Acetaminophen (Percocet 5/325 Mg Tab) 1 tab PO Q4H PRN PRN Reason: pain,mod Stop: 11/21/16 18:29 Potassium Chloride (K-Dur 20 Meq Er Tab) 20 meq PO BID [facility] Last Admin: 11/18/16 17:43 Dose: 20 meq - Labs Labs: PT 10.7 Seconds (9.9-11.8) 11/18/16 15:05 INR 0.99 (0.93-1.08) 11/18/16 15:05 APTT 29.3 Seconds (23.7-30.8) 11/18/16 15:05 Assessment and Plan - Assessment and Plan (Free Text) Assessment: Dyspnea/white out right lung, presumed lung cancer/large right pl. effusion s/p thoracentesis AF COPD Former Smoker HBP Small pericardial effusion Echo: mild MR, moderate TR, moserate to severe PH Plan: Continue metoprolol [address] fluid studies and AM labs. OOB as elvia. As per Pulm., Dr. Knight, Dr. Hillman, and Palliative Care.
[2016-11-19 07:51] LABS: HEMATOCRIT 35.9 % (36.0-48.0); MEAN CELL VOLUME 84.7 fl (80.0-105.0); MEAN CORPUSCULAR HEMOGLOBIN 27.4 pg (25.0-35.0); MEAN CORPUSCULAR HGB CONC 32.3 g/dl (31.0-37.0); MEAN PLATELET VOLUME 9.3 fl (7.0-11.0); RED CELL DISTRIBUTION WIDTH 14.6 % (11.5-14.5); WHITE BLOOD COUNT 7.7 10^3/ul (4.5-11.0)
[2016-11-19 08:03] LABS: ALB/GLOB RATIO 1.1 (1.1-1.8); ALKALINE PHOSPHATASE 60 U/L (38-126); ALT/SGPT 36 U/L (7-56); AST/SGOT 19 U/L (14-36); BILIRUBIN,TOTAL 0.6 mg/dL (0.2-1.3); BLOOD UREA NITROGEN 12 mg/dL (7-21); CALCIUM 8.8 mg/dL (8.4-10.5); CARBON DIOXIDE 34 mmol/L (21-33); CHLORIDE 89 mmol/L (95-110); GFR AFRICAN-AMERICAN > 60; GLUCOSE,RANDOM 119 mg/dL (70-110); MAGNESIUM 1.8 mg/dL (1.7-2.2); POTASSIUM 4.3 mmol/L (3.6-5.0); SODIUM 130 mmol/L (132-148); TOTAL PROTEIN 6.2 g/dL (5.8-8.3)
[2016-11-19] MEDS: Budesonide 0.5 mg/2 ml Inhal Susp UD IH SCH ×2 (08:22→19:52)
--- NOTE | 2016-11-19 08:42 | PN ---
PULMONARY NOTE DATE: 11/19/2016 SUBJECTIVE: The patient appears comfortable this morning. She is not short of breath at rest. PHYSICAL EXAMINATION VITAL SIGNS: Temperature is 98.2, pulse is approximately 90, respiratory rate 18, blood pressure is 119/60. Oxygen saturation on nasal canula is 94%. HEENT: Normocephalic, atraumatic. NECK: No JVD. CARDIOVASCULAR: Systolic ejection murmur at lower left sternal border. No S3 gallop. LUNGS: Improved breath sounds - right lung. Less rhonchi - left lung. No wheezing. EXTREMITIES: No clubbing, cyanosis or edema. Calves are nontender to palpation. GASTROINTESTINAL: Abdomen is soft, nontender, nondistended. Bowel sounds are positive. SKIN: No acute rash. NEUROLOGIC: Limited at the present time. IMPRESSION: 1. Acute bronchitis. 2. Chronic obstructive pulmonary disease. 3. 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 4. Recurrent large right pleural effusion, status post repeat thoracentesis. 5. Rapid atrial fibrillation. 6. Mild anemia. PLAN: The patient appears comfortable this morning. She is not short of breath at rest. Her cough is less. She does state to feeling better overall. On physical examination, her bronchospasm is less. I will continue the current nebulizer treatments and decrease the intravenous steroids this morning. As above, the patient is status post repeat thoracentesis by Dr. Skyler Hillman. Again, she does feel better this morning. Palliative care consult with Aaliyah Mcdaniel has been ordered. I did have a long talk with Dr. [place] in reference to this patient yesterday. I will discuss the case with him this morning. Unfortunately, the overall status/prognosis of this patient remains very poor. All are aware. Gabo Love MD KELVIN
[2016-11-19] MEDS: Brimonidine 0.15% 50 DROP/5 ML BOTTLE OD SCH ×3 (10:11→17:13)
[2016-11-19] MEDS: Potassium Chloride 20 mEq ER Tab PO SCH ×2 (10:11→17:14)
[2016-11-19] MEDS: MethylPREDNISolone 40 mg Vial IVP SCH ×2 (10:12→21:57)
[2016-11-19] MEDS: Dorzolamide 2% Opht Sol 10ml OD SCH ×2 (10:13→17:15)
[2016-11-19] MEDS: Enoxaparin 30 mg Syringe SC SCH ×2 (10:13→21:57)
[2016-11-19] MEDS ORDERED: Metoprolol 1 mg/ml Inj IVP STA (15:17)
[2016-11-19] MEDS ORDERED: Metoprolol 1 mg/ml Inj IVP ONE (15:20)
[2016-11-19] MEDS: Latanoprost 2.5 ml Opht Soln OD SCH (22:04)
--- NOTE | 2016-11-20 01:10 | PN ---
The patient has no complaints of any chest pain, shortness of breath, or headaches. She says she does feel better after the thoracentesis yesterday. PHYSICAL EXAMINATION: VITAL SIGNS: Temperature is 97.7, pulse is 72, blood pressure is 120/88, respirations 18. GENERAL: The patient is lying in bed, flat, comfortable. HEENT: No oral lesion. Anicteric sclerae. Moist mucosa. NECK: No JVD, adenopathy, or thyromegaly. CARDIOVASCULAR: S1 and S2, regular. No murmurs, rubs, or gallops. LUNGS: Clear to auscultation bilaterally. No wheeze, rales, or rhonchi. ABDOMEN: Bowel sounds are positive, soft, nontender and nondistended. EXTREMITIES: No cyanosis, clubbing or edema. LABORATORY DATA: Sodium is 130 and creatinine is 0.7. ASSESSMENT: 1. Atrial fibrillation with rapid rate. 2. Thoracentesis of right side of chest with 1800 mL of fluid removal. 3. Squamous cell carcinoma with malignant effusion. 4. Hyponatremia. 5. Hypertension. PLAN: The patient is currently comfortable. She is going to possibly go to a transitional care unit. The patient had TCU evaluation done. We will wait for at least a new bed. Meanwhile, the patient is going to be on Lovenox for DVT prophylaxis. The patient is on steroids. Clearly, I did speak to Dr. Love regarding the case. She is on nebulizer treatment with Xopenex. She is given potassium. She is on metoprolol for her atrial fibrillation. She is on a heart-healthy diet. Rick Knight MD
[2016-11-20] MEDS: Levalbuterol 0.63 MG/3 ML Inhal Soln UD IH SCH ×4 (01:19→20:50)
[2016-11-20] MEDS: Budesonide 0.5 mg/2 ml Inhal Susp UD IH SCH ×2 (07:29→20:50)
--- NOTE | 2016-11-20 07:55 | PN ---
SUBJECTIVE: The patient appears comfortable this morning. She is not short of breath at rest. PHYSICAL EXAMINATION: VITAL SIGNS: Temperature is 98.1, pulse 88, respirations 18, blood pressure 117/68. Oxygen saturation on nasal cannula is 96% to 97%. HEENT: Normocephalic and atraumatic. NECK: No JVD. CARDIOVASCULAR: Systolic ejection murmur at the lower left sternal border. No S3 gallop. LUNGS: Improved breath sounds-right lung. Less rhonchi-left lung. No wheezing. EXTREMITIES: No clubbing, cyanosis, or edema. Calves are nontender to palpation. GASTROINTESTINAL: Abdomen is soft, nontender, and nondistended. Bowel sounds are positive. SKIN: No acute rash. NEUROLOGIC: Limited at the present time. IMPRESSION: 1. Acute bronchitis. 2. Chronic obstructive pulmonary disease. 3. 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 4. Recurrent large right pleural effusion, status post repeat thoracentesis. 5. Rapid atrial fibrillation. 6. Mild anemia. PLAN: The patient appears comfortable this morning. She is not short of breath at rest. Her cough is less. She does state that she is feeling better this morning. On physical exam, her bronchospasm is less. I will continue with the current nebulizer treatments and low-dose intravenous steroids (decreased yesterday) for now. The patient is status post repeat thoracentesis. Her breathing is certainly better-compared to the initial presentation. However, again, the overall status/prognosis of this patient remains very poor. I will discuss the above with the attending physician. Gabo Love MD KELVIN
--- NOTE | 2016-11-20 07:57 | CARD ---
APPROVED REPORT EXAM: Two-dimensional and M-mode echocardiogram with Doppler and color Doppler. INDICATION Pericardial Effusion Pleural Effusion M-Mode DIMENSIONS Aortic Root2.70 (2.2-3.7cm)Aortic Cusp Exc.0.90 (1.5-2.0cm) Aortic Valve AoV Peak Cwqxumfu422.0cm/Isaiah Peak GR.23mmHg Mitral Valve E/A ratio0.0 TDI E/Lateral E'0.0E/Medial E'0.0 Tricuspid Valve TR Peak [id number] [id number] Peak Gr.59mmHg [id number] <Conclusion> The pericardial effusion has increased but it is still small.
--- NOTE | 2016-11-20 08:05 | CP.PCM.PN ---
Subjective - Date & Time of Evaluation Date of Evaluation: 11/20/16 Time of Evaluation: 07:00 - Subjective Subjective: Stable on 2R. No CP or SOB. Af, sometimes rapid yesterday. Extra metoprolol 5 mg. IV given once yesterday PM. Now RSR. No CP or SOB. V/S noted. AF > RSR now PE: Lungs: decreased BS riight side Cor: irreg S1S2 Abd.: soft Ext.: no LE edema Neuro.: alert I/O = 1770/900 Echo: The peric. effusion is larger but still small. CXR 11/18 post thoracentesis: No change Labs 11/19 noted. Objective - Vital Signs/Intake and Output Vital Signs (last 24 hours): Temp Pulse Resp BP Pulse Ox 98.1 F 111 H 18 117/68 96 11/20/16 00:00 11/20/16 02:00 11/20/16 00:00 11/20/16 00:00 11/20/16 00:00 Intake and Output: 11/20/16 11/20/16 06:59 18:59 Intake Total 800 Output Total 900 Balance -100 - Medications Medications: Current Medications Brimonidine Tartrate (Alphagan P 0.15% Opht) 1 drop OD TID [facility] Last Admin: 11/19/16 17:13 Dose: 1 drop Budesonide (Pulmicort Respules) 0.5 mg IH [id number] [facility] Last Admin: 11/20/16 07:29 Dose: 0.5 mg Dorzolamide HCl (Trusopt) 0 ml OD BID [facility] Last Admin: 11/19/16 17:15 Dose: 1 drop Enoxaparin Sodium (Lovenox) 30 mg SC Q12H [facility] PRN Reason: Protocol Last Admin: 11/19/16 21:57 Dose: 30 mg Latanoprost (Xalatan Opht) 0 ml OD HS [facility] Last Admin: 11/19/16 22:04 Dose: 1 ml Levalbuterol HCl (Xopenex) 0.63 mg IH [id number] [facility] Last Admin: 11/20/16 07:29 Dose: 0.63 mg Levalbuterol HCl (Xopenex) 0.63 mg IH Q2 PRN PRN Reason: Shortness of Breath Methylprednisolone (Solu-Medrol) 20 mg IVP Q12 [facility] Last Admin: 11/19/16 21:57 Dose: 20 mg Metoprolol Tartrate (Lopressor) 100 mg PO 0800,1800 [facility] Oxycodone/Acetaminophen (Percocet 5/325 Mg Tab) 1 tab PO Q4H PRN PRN Reason: pain,mod Stop: 11/21/16 18:29 Potassium Chloride (K-Dur 20 Meq Er Tab) 20 meq PO BID [facility] Last Admin: 11/19/16 17:14 Dose: 20 meq - Labs Labs: 11/19/16 07:45 11/19/16 07:45 PT 10.7 Seconds (9.9-11.8) 11/18/16 15:05 INR 0.99 (0.93-1.08) 11/18/16 15:05 APTT 29.3 Seconds (23.7-30.8) 11/18/16 15:05 Assessment and Plan - Assessment and Plan (Free Text) Assessment: Dyspnea/white out right lung, presumed lung cancer/large right pl. effusion s/p thoracentesis AF COPD Former Smoker HBP Small pericardial effusion Echo: mild MR, moderate TR, moserate to severe PH Plan: Increase metoprolol to [address] fluid studies and AM labs. OOB as elvia. As per Pulm., Dr. Knight, Dr. Hillman, and Palliative Care.
[2016-11-20 08:13] LABS: ALB/GLOB RATIO 1.2 (1.1-1.8); ALKALINE PHOSPHATASE 57 U/L (38-126); ALT/SGPT 38 U/L (7-56); AST/SGOT 23 U/L (14-36); BILIRUBIN,TOTAL 0.5 mg/dL (0.2-1.3); BLOOD UREA NITROGEN 15 mg/dL (7-21); CALCIUM 8.7 mg/dL (8.4-10.5); CARBON DIOXIDE 35 mmol/L (21-33); CHLORIDE 91 mmol/L (98-107); GFR AFRICAN-AMERICAN > 60; GLUCOSE,RANDOM 109 mg/dL (70-110); POTASSIUM 4.3 mmol/L (3.6-5.0); SODIUM 132 mmol/L (132-148)
[2016-11-20] MEDS: Enoxaparin 30 mg Syringe SC SCH ×2 (10:23→22:48)
[2016-11-20] MEDS: Dorzolamide 2% Opht Sol 10ml OD SCH ×2 (10:26→18:21)
[2016-11-20] MEDS: MethylPREDNISolone 40 mg Vial IVP SCH ×2 (10:26→22:48)
[2016-11-20] MEDS: Potassium Chloride 20 mEq ER Tab PO SCH ×2 (10:27→18:20)
[2016-11-20] MEDS: Brimonidine 0.15% 50 DROP/5 ML BOTTLE OD SCH ×3 (10:27→18:22)
[2016-11-20 16:34] VITALS: RESP 20
[2016-11-20] MEDS: Latanoprost 2.5 ml Opht Soln OD SCH (22:00)
[2016-11-21] MEDS: Levalbuterol 0.63 MG/3 ML Inhal Soln UD IH SCH ×3 (02:20→13:45)
[2016-11-21] MEDS: Budesonide 0.5 mg/2 ml Inhal Susp UD IH SCH (07:34)
--- NOTE | 2016-11-21 07:59 | CP.PCM.PN ---
Subjective - Date & Time of Evaluation Date of Evaluation: 11/21/16 Time of Evaluation: 07:00 - Subjective Subjective: Stable on 3R. No CP or SOB. No CP or SOB. V/S noted. Mostly RSR yesterday, this AM. PE: Lungs: decreased BS riight side Cor: irreg S1S2 Abd.: soft Ext.: no LE edema Neuro.: alert I/O = 480/400 recorded Echo: The peric. effusion is larger but still small. CXR 11/18 post thoracentesis: No change Labs 11/20 noted. Na+= 132, K+= 4.3 Objective - Vital Signs/Intake and Output Vital Signs (last 24 hours): Temp Pulse Resp BP Pulse Ox 97.6 F 83 20 146/67 93 L 11/20/16 18:54 11/20/16 18:54 11/20/16 18:54 11/20/16 18:54 11/20/16 18:54 Intake and Output: 11/21/16 11/21/16 06:59 18:59 Intake Total 480 Output Total 400 Balance 80 - Medications Medications: Current Medications Brimonidine Tartrate (Alphagan P 0.15% Opht) 1 drop OD TID [facility] Last Admin: 11/20/16 18:22 Dose: 1 drop Budesonide (Pulmicort Respules) 0.5 mg IH [id number] [facility] Last Admin: 11/21/16 07:34 Dose: 0.5 mg Dorzolamide HCl (Trusopt) 0 ml OD BID [facility] Last Admin: 11/20/16 18:21 Dose: 1 drop Enoxaparin Sodium (Lovenox) 30 mg SC Q12H [facility] PRN Reason: Protocol Last Admin: 11/20/16 22:48 Dose: 30 mg Latanoprost (Xalatan Opht) 0 ml OD HS [facility] Last Admin: 11/20/16 22:00 Dose: 1 ml Levalbuterol HCl (Xopenex) 0.63 mg IH [id number] [facility] Last Admin: 11/21/16 07:34 Dose: 0.63 mg Levalbuterol HCl (Xopenex) 0.63 mg IH Q2 PRN PRN Reason: Shortness of Breath Metoprolol Tartrate (Lopressor) 100 mg PO 0800,1800 [facility] Last Admin: 11/20/16 18:20 Dose: 100 mg Oxycodone/Acetaminophen (Percocet 5/325 Mg Tab) 1 tab PO Q4H PRN PRN Reason: pain,mod Stop: 11/21/16 18:29 Potassium Chloride (K-Dur 20 Meq Er Tab) 20 meq PO BID [facility] Last Admin: 11/20/16 18:20 Dose: 20 meq Prednisone (Prednisone Tab) 30 mg PO DAILY [facility] - Labs Labs: 11/19/16 07:45 11/20/16 07:50 PT 10.7 Seconds (9.9-11.8) 11/18/16 15:05 INR 0.99 (0.93-1.08) 11/18/16 15:05 APTT 29.3 Seconds (23.7-30.8) 11/18/16 15:05 Assessment and Plan - Assessment and Plan (Free Text) Assessment: Dyspnea/white out right lung, presumed lung cancer/large right pl. effusion s/p thoracentesis AF COPD Former Smoker HBP Small pericardial effusion Echo: mild MR, moderate TR, moderate to severe PH Plan: Continue metoprolol [address] fluid studies. OOB as elvia. As per Pulm., Dr. Knight, Dr. Hillman, and Palliative Care.
[2016-11-21] MEDS: Potassium Chloride 20 mEq ER Tab PO SCH (10:22)
[2016-11-21] MEDS: Enoxaparin 30 mg Syringe SC SCH (10:22)
[2016-11-21] MEDS: Brimonidine 0.15% 50 DROP/5 ML BOTTLE OD SCH ×2 (10:23→14:48)
[2016-11-21] MEDS: Dorzolamide 2% Opht Sol 10ml OD SCH (10:23)
[2016-11-21 10:24] VITALS: BP 129/71
--- NOTE | 2016-11-21 11:05 | PN ---
DATE: 11/21/2016 SUBJECTIVE: The patient appears comfortable this morning. She is not short of breath at rest. PHYSICAL EXAMINATION: VITAL SIGNS (As noted in the computer): Temperature of 97.6, pulse of 83, respirations of 18/20, and blood pressure of 146/67. Oxygen saturation on nasal cannula ranges between 93%--97% present. HEENT: Normocephalic, atraumatic. No JVD. CARDIOVASCULAR: Systolic ejection murmur at the lower left sternal border. No S3 gallop. LUNGS: Better breath sounds - right lung. Much less rhonchi - left lung. No wheezing. EXTREMITIES: No clubbing, cyanosis or edema. Calves are nontender to palpation. GASTROINTESTINAL: Abdomen is soft, nontender, and nondistended. Bowel sounds are positive. SKIN: No acute rash. NEUROLOGIC: Limited at the present time. IMPRESSION: 1. Acute bronchitis. 2. Chronic obstructive pulmonary disease. 3. 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 4. Recurrent large right pleural effusion, status post repeat thoracentesis. 5. Rapid atrial fibrillation. 6. Mild anemia. PLAN: The patient appears comfortable this morning. She is not short of breath at rest. She does state that she is feeling much better overall. On physical exam, her bronchospasm continues to resolve. In addition, there is no significant alveolar - arterial gradient. I will continue the current nebulizer treatments and change to oral steroids this morning. I would continue with the treatment for the cardiac arrhythmias as per cardiology. Input by Dr. Pineda is noted. Clinical status of the patient is certainly improved - compared to the initial presentation. However, again, the overall status/prognosis for this patient remains very poor. All are aware. I will discuss the above with the attending physician. Gabo Love MD KELVIN
[2016-11-21 13:16] VITALS: TEMP 98; O2SAT 97
[2016-11-21 16:51] VITALS: PULSE 95
--- NOTE | 2016-11-21 18:52 | PN ---
SUBJECTIVE: The patient is 86 years old, seen and examined, lying in bed, seems to be comfortable. No chest pain. No shortness of breath. PHYSICAL EXAMINATION VITAL SIGNS: She is afebrile, pulse 84, respirations 20 and blood pressure 129/71. LUNGS: Bilateral fair air flow, decreased at bases. HEART: S1 and S2 audible. ABDOMEN: Soft and nontender. No rebound. No guarding. NEUROLOGICALLY: She is awake and alert. Able to communicate. ASSESSMENT: 1. Right pleural effusion, status post thoracentesis, probably secondary to malignancy. 2. Chronic atrial fibrillation. 3. Chronic obstructive pulmonary disease. 4. History of hypertension. 5. Moderate tricuspid regurgitation. 6. Chronic anemia. 7. Squamous cell carcinoma of the lung. 8. Deconditioning and difficulty walking. PLAN: Currently, the patient is on DVT prophylaxis. She is getting analgesic. She is getting nebulizer treatment. Awaiting TCU acceptance. Encourage physical therapy. Carmelita Barakat MD
--- NOTE | 2016-11-22 09:10 | PN ---
SUBJECTIVE: The patient is 86 years old, seen and examined, sitting in chair, seems to be comfortable. Offers no complaints. PHYSICAL EXAMINATION VITAL SIGNS: She is afebrile, pulse 83, respiration 20, and blood pressure 146/57. LUNGS: Bilateral good airflow. No rhonchi or crackles. HEART: S1 and S2 audible. ABDOMEN: Soft, nontender. No rebound. No guarding. NEUROLOGIC: She is awake and alert, able to communicate. EXTREMITIES: Bilateral leg, no edema. LABORATORY EXAM: Sodium 132, potassium 4.3, chloride 91, CO2 of 35, and blood sugar 119. ASSESSMENT AND PLAN: 1. Right pleural effusion, status post thoracentesis. 2. Chronic obstructive pulmonary disease. 3. Chronic atrial fibrillation. 4. Mild mitral regurgitation. 5. Severe pulmonary hypertension. 6. Deconditioning. 7. Squamous cell carcinoma of the lung. 8. Chronic anemia. PLAN: Currently, the patient is on nebulizer treatment. She is on beta-tano. She is on DVT prophylaxis and analgesic as needed. TCU evaluation has been requested. She is on small dose of steroid. If the patient is accepted, she can be transferred to TCU. Carmelita Barakat MD
== END 2016-11-21 17:15 | DRG 181 ==
LOC: ED 13:22 → ERH 15:04 → 3RSO 17:07 → OBSVTOIN 11-18 08:42
PROVIDERS: ADMIT Internal Medicine Nephrology; ATTEND Internal Medicine Nephrology
PROC: 3E0F7GC Introduction of Other Therapeutic Substance into Respiratory Tract, Via Natural or Artificial Opening (ICD-10-PCS; 2016-11-18)
PROC: 0W993ZZ Drainage of Right Pleural Cavity, Percutaneous Approach (ICD-10-PCS; principal; 2016-11-18 16:00)
DX: C34.91 Malignant neoplasm of unspecified part of right bronchus or lung (principal); J91.0 Malignant pleural effusion; J44.0 Chronic obstructive pulmonary disease with (acute) lower respiratory infection; I31.3 Pericardial effusion (noninflammatory); I50.9 Heart failure, unspecified; I11.0 Hypertensive heart disease with heart failure; E83.42 Hypomagnesemia; E87.1 Hypo-osmolality and hyponatremia; I48.92 Unspecified atrial flutter; I27.2 Other secondary pulmonary hypertension; D64.9 Anemia, unspecified; I48.0 Paroxysmal atrial fibrillation; J20.9 Acute bronchitis, unspecified; R39.15 Urgency of urination; J98.01 Acute bronchospasm; I48.2 Chronic atrial fibrillation; I08.1 Rheumatic disorders of both mitral and tricuspid valves; R26.2 Difficulty in walking, not elsewhere classified; Z87.891 Personal history of nicotine dependence

== ENCOUNTER 2016-11-21 17:20 | Inpatient (IN) | payer OTHER ==
[2016-11-21] MEDS ORDERED: Potassium Chloride 20 mEq ER Tab PO SCH (18:00)
[2016-11-21] MEDS ORDERED: Enoxaparin 30 mg Syringe SC SCH (18:00)
[2016-11-21] MEDS ORDERED: Levalbuterol 0.63 MG/3 ML Inhal Soln UD IH PRN (18:42)
[2016-11-21] MEDS ORDERED: Oxycodone/Acetaminophen 5/325 mg Tab PO PRN (18:42)
[2016-11-21] MEDS: Levalbuterol 0.63 MG/3 ML Inhal Soln UD IH SCH (20:15)
[2016-11-21] MEDS: Budesonide 0.5 mg/2 ml Inhal Susp UD IH SCH (20:15)
[2016-11-21] MEDS: Brimonidine 0.15% 50 DROP/5 ML BOTTLE OD SCH (22:38)
[2016-11-21] MEDS: Enoxaparin 30 mg Syringe SC SCH (22:39)
[2016-11-21] MEDS: Latanoprost 2.5 ml Opht Soln OD SCH (22:39)
[2016-11-22] MEDS: Levalbuterol 0.63 MG/3 ML Inhal Soln UD IH SCH ×3 (02:15→13:09)
[2016-11-22] MEDS: Brimonidine 0.15% 50 DROP/5 ML BOTTLE OD SCH ×3 (06:46→18:20)
[2016-11-22] MEDS: Budesonide 0.5 mg/2 ml Inhal Susp UD IH SCH (07:22)
[2016-11-22 08:08] LABS: ALB/GLOB RATIO 1.2 (1.1-1.8); ALKALINE PHOSPHATASE 57 U/L (38-126); ALT/SGPT 43 U/L (7-56); AST/SGOT 24 U/L (14-36); BILIRUBIN,TOTAL 0.6 mg/dL (0.2-1.3); BLOOD UREA NITROGEN 14 mg/dL (7-21); CALCIUM 8.7 mg/dL (8.4-10.5); CARBON DIOXIDE 32 mmol/L (21-33); CHLORIDE 93 mmol/L (98-107); GFR AFRICAN-AMERICAN > 60; GLUCOSE,RANDOM 85 mg/dL (70-110); POTASSIUM 4.1 mmol/L (3.6-5.0); SODIUM 131 mmol/L (132-148); TOTAL PROTEIN 5.8 g/dL (5.8-8.3)
--- NOTE | 2016-11-22 08:40 | PN ---
PULMONARY PROGRESS NOTE DATE: 11/22/2016 SUBJECTIVE: The patient appears comfortable this morning. She is not short of breath at rest. PHYSICAL EXAMINATION: VITAL SIGNS: Temperature is 97.7, pulse is 53, respirations are 18/20, and blood pressure is 119/48. Oxygen saturation on nasal cannula is 98%. HEENT: Normocephalic and atraumatic. NECK: No JVD. CARDIOVASCULAR: Systolic ejection murmur at the lower left sternal border. No S3 gallop. LUNGS: Improved breath sounds-right lung. Minimal rhonchi-left lung. No wheezing. EXTREMITIES: No clubbing, cyanosis or edema. Calves are nontender to palpation. GASTROINTESTINAL: Abdomen is soft, nontender, and nondistended. Bowel sounds are positive. SKIN: No acute rash. NEUROLOGIC: Limited at the present time. IMPRESSION: 1. Acute bronchitis. 2. Chronic obstructive pulmonary disease. 3. 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 4. Recurrent large right pleural effusion, status post repeat thoracentesis. 5. Rapid atrial fibrillation. 6. Mild anemia. PLAN: The patient appears comfortable this morning. She is not short of breath at rest. She does state that she is feeling better overall. On physical exam, there is no significant bronchospasm noted. In addition, the oxygen saturation on nasal cannula is now 98%. I will continue with the current nebulizer treatments and oral steroids (changed yesterday) for now. The patient is now on the transitional unit--- where she will participate with physical therapy. Clinically, she has improved-compared to the initial presentation. However, again, the future status/prognosis for this patient remains very poor. All are aware. I will discuss the above with Dr. Knight. Gabo Love MD K[facility]IN
[2016-11-22] MEDS: Enoxaparin 30 mg Syringe SC SCH ×2 (09:59→22:44)
--- NOTE | 2016-11-22 11:22 | PN ---
DATE: 11/22/2016 SUBJECTIVE: The patient has no complaints of any chest pain, no shortness of breath, no headaches. The initial H and P was reviewed. She is coming to the transitional care unit for rehab. The patient was found to have large right-sided pleural effusion. She was treated with thoracentesis by Dr. Skyler Hillman and she had improvement in her symptoms. She has no complaints of any headaches, no dizziness, no nausea. PHYSICAL EXAMINATION: VITAL SIGNS: Temperature is 98.6, pulse is 80, respirations 16, O2 saturation is 97%, height is 5 feet 2 inches, weight is 109 pounds. BMI is 20. GENERAL: The patient is lying in bed, flat, comfortable. HEENT: No oral lesion. Anicteric sclerae. Moist mucosa. NECK: No JVD, adenopathy, or thyromegaly. CARDIOVASCULAR: S1 and S2, regular. No murmurs, rubs, or gallops. LUNGS: Clear to auscultation bilaterally. No wheeze, rales, or rhonchi. ABDOMEN: Bowel sounds are positive, soft, nontender and nondistended. EXTREMITIES: No cyanosis, clubbing or edema. ASSESSMENT: 1. Right-sided pleural effusion, status post thoracentesis, 1800 mL of fluid. 2. 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 3. Hyponatremia, improved. 4. Hypertension. 5. Atrial fibrillation. 6. Glaucoma. PLAN: The patient is on Alphagan for her glaucoma. The patient is receiving metoprolol. She is on potassium replacement. We will need to repeat her blood work. I will hold her potassium for now. She is being followed by Dr. Love for the pleural effusion. She is on Lovenox for DVT prophylaxis. She is on prednisone. She is on a heart-healthy diet. Rick Knight MD MTDYvonne
--- NOTE | 2016-11-22 13:16 | CP.PCM.CON ---
History of Present Illness - History of Present Illness History of Present Illness: Palate consult requested by Dr Rosalio Knight Reason:Goals of care 86 year old female with history of metastatic squamous cell lung cancer who presented increasing shortness of breath and rapid atrial fibrillation. She was admitted to acute care with right pleural effusion. She s/p right thoracentisis. Her heart rate has been treated and resolved. She has since been transferred to [facility] for deconditioning. PMHx: HTN, CHF, atrial fibrillation, mitral/tricuspid valve regurgitation, pulmonary hypertension,hyponatremia. Social History: Former heavy smoker, no alcohol or drug use. She lives independently,one of her duagters resides in the same building. supportive. Family History: Non contributory. Advance Care Planning:She does not have an Advanced Directive. Review of Systems: As per HPI, all other systems reviewed and are negative Past Patient History - Infectious Disease Hx of Infectious Diseases: None - Past Social History Smoking Status: Former Smoker - CARDIAC Hx Congestive Heart Failure: Yes Hx Hypertension: Yes - PULMONARY Hx Chronic Obstructive Pulmonary Disease (COPD): Yes - HEENT Hx Blind: Yes (left eye) Hx Cataracts: Yes (r eye sx) - HEMATOLOGICAL/ONCOLOGICAL Hx Cancer: (pt is denying lung cancer) - INTEGUMENTARY Other/Comment: buttocks slightly reddened, multiple skin discolorations ble, dry skin feet - MUSCULOSKELETAL/RHEUMATOLOGICAL Hx Falls: No - GASTROINTESTINAL Hx Gastrointestinal Disorders: No - GENITOURINARY/GYNECOLOGICAL Hx Genitourinary Disorders: (URGENCY) - PSYCHIATRIC Hx Substance Use: No - SURGICAL HISTORY Other/Comment: thoracenthesis - ANESTHESIA Hx Anesthesia Reactions: No Meds Allergies/Adverse Reactions: Allergies Allergy/AdvReac Type Severity Reaction Status Date / Time No Known Allergies Allergy Verified 11/17/16 13:37 - Medications Medications: Current Medications Brimonidine Tartrate (Alphagan P 0.15% Opht) 1 drop OD Q8H [facility] PRN Reason: Protocol Last Admin: 11/22/16 06:46 Dose: Not Given Budesonide (Pulmicort Respules) 0.5 mg IH [id number] [facility] PRN Reason: Protocol Last Admin: 11/22/16 07:22 Dose: 0.5 mg Dorzolamide HCl (Trusopt) 0 ml OD TID [facility] PRN Reason: Protocol Enoxaparin Sodium (Lovenox) 30 mg SC Q12 [facility] PRN Reason: Protocol Last Admin: 11/22/16 09:59 Dose: 30 mg Latanoprost (Xalatan Opht) 0 ml OD HS [facility] PRN Reason: Protocol Last Admin: 11/21/16 22:39 Dose: 1 ml Levalbuterol HCl (Xopenex) 0.63 mg IH Q2H PRN; Protocol PRN Reason: Shortness of Breath Levalbuterol HCl (Xopenex) 0.63 mg IH [id number] [facility] PRN Reason: Protocol Last Admin: 11/22/16 07:22 Dose: 0.63 mg Metoprolol Tartrate (Lopressor) 100 mg PO 0800,1800 [facility] PRN Reason: Protocol Last Admin: 11/22/16 08:33 Dose: Not Given Oxycodone/Acetaminophen (Percocet 5/325 Mg Tab) 1 tab PO Q4H PRN; Protocol PRN Reason: Pain, moderate (4-7) Stop: 11/24/16 18:43 Prednisone (Prednisone Tab) 30 mg PO DAILY [facility] PRN Reason: Protocol Last Admin: 11/22/16 09:52 Dose: 30 mg Physical Exam - Constitutional Appears: Cachectic, Chronically Ill - Eye Exam Eye Exam: Normal appearance, PERRL - ENT Exam ENT Exam: Mucous Membranes Moist - Neck Exam Neck exam: Positive for: Normal Inspection - Respiratory Exam Respiratory Exam: Decreased Breath Sounds Additional comments: dyspnea on exertion - Cardiovascular Exam Cardiovascular Exam: Irregular Rhythm, +S1, +S2 - GI/Abdominal Exam GI & Abdominal Exam: Normal Bowel Sounds, Soft - Extremities Exam Extremities exam: Positive for: pedal edema, pedal pulses present - Back Exam Back exam: NORMAL INSPECTION - Neurological Exam Neurological exam: Alert Additional comments: oriented to self and place - Skin Skin Exam: Dry, Warm - Additional Findings Additional findings: Palliative performance scale rating 40 % Results - Vital Signs Recent Vital Signs: Last Vital Signs Temp 97.4 F L 11/22/16 10:00 Pulse 52 L 11/22/16 10:00 Resp 18 11/22/16 10:00 BP 122/60 11/22/16 10:00 Pulse Ox 98 11/22/16 06:00 - Labs Result Diagrams: 11/22/16 07:26 Labs: Laboratory Results - last 24 hr 11/22/16 07:26 Sodium 131 L Potassium 4.1 Chloride 93 L Carbon Dioxide 32 Anion Gap 10 BUN 14 Creatinine 0.7 Est GFR ( Amer) > 60 Est GFR (Non-Af Amer) > 60 Random Glucose 85 Calcium 8.7 Total Bilirubin 0.6 AST 24 ALT 43 Alkaline Phosphatase 57 Total Protein 5.8 Albumin 3.1 Globulin 2.6 Albumin/Globulin Ratio 1.2 Assessment & Plan - Assessment and Plan (Free Text) Assessment: 86 year old female with history of advanced squamous cell lung cancer who was admitted with right pleural effusion, shortness of breath, hyponatremia, atrial fibrillation and deconditioning. The patient is known to me from past admission. At that time the patient refused to discuss advance care planning. I had several meetings with patient's daughters, Maribel and Humaira to discuss goals of care and advance care planning. Daughters understood that mother has a terminal illness. Patient/family decided that they did not want to seek treatment for cancer. Hospice services were discussed as well. Family not ready for hospice care and decided to take patient home with visiting nurses services. The patient does not remember meeting with me last month.She is alert but forgetful,sometimes confused. She denies pain.She did not want to discuss advance care planning today. I contacted patients daughter Humaira to arrange to meeting in order to discuss future goals of care. Humaira and I have scheduled meeting for tomorrow in order to revisit option for hospice care Time spent in discussion with patient and daughter regarding goals of care and advance care planning, 20 minutes Plan: Advance care planning Palliative support.
[2016-11-22] MEDS: Dorzolamide 2% Opht Sol 10ml OD SCH ×2 (18:14→18:17)
[2016-11-22] MEDS: Latanoprost 2.5 ml Opht Soln OD SCH (22:50)
[2016-11-23] MEDS: Brimonidine 0.15% 50 DROP/5 ML BOTTLE OD SCH ×2 (02:38→11:15)
[2016-11-23] MEDS: Levalbuterol 0.63 MG/3 ML Inhal Soln UD IH SCH ×4 (02:42→19:59)
[2016-11-23] MEDS: Budesonide 0.5 mg/2 ml Inhal Susp UD IH SCH ×2 (07:47→19:59)
--- NOTE | 2016-11-23 08:25 | PN ---
DATE: 11/23/2016 PULMONARY NOTE SUBJECTIVE: The patient appears comfortable this morning. She is not short of breath at rest. PHYSICAL EXAMINATION: VITAL SIGNS: Temperature is 97.9, pulse is 54, respirations are 18, blood pressure is 114/49. Oxygen saturation on nasal cannula is 98%. HEENT: Normocephalic and atraumatic. NECK: No JVD. CARDIOVASCULAR: Systolic ejection murmur at the lower left sternal border. No S3 gallop. LUNGS: Improved breath sounds - right lung. Very minimal/less rhonchi - left lung. No wheezing. EXTREMITIES: No clubbing, cyanosis or edema. Calves are nontender to palpation. GASTROINTESTINAL: Abdomen is soft, nontender, and nondistended. Bowel sounds are positive. SKIN: No acute rash. NEUROLOGIC: Limited at the present time. IMPRESSION: 1. Acute bronchitis. 2. Chronic obstructive pulmonary disease. 3. 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 4. Recurrent large right pleural effusion, status post repeat thoracentesis. 5. Rapid atrial fibrillation. 6. Mild anemia. PLAN: The patient appears comfortable this morning. She is not short of breath at rest. She does state to feeling better overall. On physical exam, her bronchospasm continued to resolve. In addition, the oxygen saturation on nasal cannula is now 98%. I will continue with the current nebulizer treatments and low-dose oral steroids (decreased yesterday) for now. Input by Aaliyah Mcdaniel (palliative care) is noted. Clinical status of the patient is certainly improved - compared to the initial presentation. However, again, the future status/prognosis for this patient remains very poor. All are aware. I will discuss the above with Dr. Knight. Gabo Love MD MTDYvonne
[2016-11-23] MEDS: Enoxaparin 30 mg Syringe SC SCH ×2 (11:16→22:33)
[2016-11-23] MEDS: Dorzolamide 2% Opht Sol 10ml OD SCH ×2 (11:17→14:45)
--- NOTE | 2016-11-23 15:43 | CP.PCM.PN ---
Subjective - Date & Time of Evaluation Date of Evaluation: 11/23/16 Time of Evaluation: 14:00 - Subjective Subjective: Alert, confused at times.Offers no complaints Objective - Vital Signs/Intake and Output Vital Signs (last 24 hours): Temp Pulse Resp BP Pulse Ox 97.9 F 60 20 117/62 98 11/22/16 20:05 11/23/16 11:15 11/22/16 20:05 11/23/16 11:15 11/22/16 20:05 Intake and Output: 11/23/16 11/23/16 06:59 18:59 Intake Total 420 Balance 420 - Medications Medications: Current Medications Brimonidine Tartrate (Alphagan P 0.15% Opht) 1 drop OD Q8H MARY JANE PRN Reason: Protocol Last Admin: 11/23/16 11:15 Dose: Not Given Budesonide (Pulmicort Respules) 0.5 mg IH [id number] MARY JANE PRN Reason: Protocol Last Admin: 11/23/16 07:47 Dose: 0.5 mg Dorzolamide HCl (Trusopt) 0 ml OD TID MARY JANE PRN Reason: Protocol Last Admin: 11/23/16 14:45 Dose: Not Given Enoxaparin Sodium (Lovenox) 30 mg SC Q12 MARY JANE PRN Reason: Protocol Last Admin: 11/23/16 11:16 Dose: 30 mg Latanoprost (Xalatan Opht) 0 ml OD HS MARY JANE PRN Reason: Protocol Last Admin: 11/22/16 22:50 Dose: 1 ml Levalbuterol HCl (Xopenex) 0.63 mg IH Q2H PRN; Protocol PRN Reason: Shortness of Breath Last Admin: 11/23/16 07:45 Dose: 0.63 mg Levalbuterol HCl (Xopenex) 0.63 mg IH [id number] MARY JANE PRN Reason: Protocol Last Admin: 11/23/16 13:09 Dose: 0.63 mg Metoprolol Tartrate (Lopressor) 100 mg PO 0800,1800 MARY JANE PRN Reason: Protocol Last Admin: 11/23/16 11:15 Dose: 100 mg Oxycodone/Acetaminophen (Percocet 5/325 Mg Tab) 1 tab PO Q4H PRN; Protocol PRN Reason: Pain, moderate (4-7) Stop: 11/24/16 18:43 Prednisone (Prednisone Tab) 30 mg PO DAILY MARY JANE PRN Reason: Protocol Last Admin: 11/23/16 11:17 Dose: 30 mg - Labs Labs: 11/22/16 07:26 - Constitutional Appears: Chronically Ill - Eye Exam Eye Exam: Normal appearance, PERRL - ENT Exam ENT Exam: Mucous Membranes Moist - Respiratory Exam Respiratory Exam: Decreased Breath Sounds Additional comments: dyspnea on exertion - Cardiovascular Exam Cardiovascular Exam: Irregular Rhythm, +S1, +S2 - GI/Abdominal Exam GI & Abdominal Exam: Soft, Normal Bowel Sounds - Extremities Exam Extremities Exam: Pedal Edema - Skin Skin Exam: Dry, Warm Assessment and Plan - Assessment and Plan (Free Text) Assessment: 6 year old female with advanced squamous cell carcinoma, right pleural effusion , dyspnea who is currently in TRCU for deconditioning. Natasha WILSON and Amber had a lengthy discussion with patients daughter Humaira regarding future goals of care. Family is considering Hospice services explained in detail. Discussion ensued regarding best option for patients future care needs. Questions answered. Psychosocial support given. Family to make decision regarding discharge plan and will notify KATIE tomorrow. Advance care planning discussion with family, 45 minutes Plan: Advance care planning Palliative support
[2016-11-23] MEDS: Latanoprost 2.5 ml Opht Soln OD SCH (22:34)
[2016-11-24] MEDS: Levalbuterol 0.63 MG/3 ML Inhal Soln UD IH SCH ×4 (01:35→19:59)
[2016-11-24] MEDS: Brimonidine 0.15% 50 DROP/5 ML BOTTLE OD SCH ×3 (02:50→17:57)
[2016-11-24] MEDS: Budesonide 0.5 mg/2 ml Inhal Susp UD IH SCH ×2 (07:36→19:58)
--- NOTE | 2016-11-24 08:04 | PN ---
DATE: 11/24/2016 SUBJECTIVE: The patient appears comfortable this morning. She is not short of breath at rest. PHYSICAL EXAMINATION: VITAL SIGNS: Temperature is 98.5, pulse 87, respirations 18, blood pressure 110/69. Oxygen saturation on nasal cannula is 100%. HEENT: Normocephalic and atraumatic. NECK: No JVD. CARDIOVASCULAR: Systolic ejection murmur at the lower left sternal border. No S3 gallop. LUNGS: Better breath sounds-right lung. Very minimal rhonchi-left lung. No wheezing. EXTREMITIES: No clubbing, cyanosis or edema. Calves are nontender to palpation. GASTROINTESTINAL: Abdomen is soft, nontender, and nondistended. Bowel sounds are positive. SKIN: No acute rash. NEUROLOGIC: Limited at the present time. IMPRESSION: 1. Acute bronchitis. 2. Chronic obstructive pulmonary disease. 3. 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 4. Recurrent large right pleural effusion, status post repeat thoracentesis. 5. Rapid atrial fibrillation. 6. Mild anemia. PLAN: The patient appears comfortable this morning. She is not short of breath at rest. She does state to feeling better overall. On physical exam, her bronchospasm continues to resolve. In addition, the oxygen saturation on nasal cannula is now 100%. I will continue with the current nebulizer treatments and decrease the oral steroids this morning. Input by Aaliyah Mcdaniel (palliative care) is noted. Clinical status of the patient is definitely improved-compared to the initial presentation. However, again, the future status/prognosis for this patient remains very poor. All are aware. Gabo Love MD MTDYvonne
[2016-11-24] MEDS: Dorzolamide 2% Opht Sol 10ml OD SCH ×3 (11:22→17:57)
[2016-11-24] MEDS: Enoxaparin 30 mg Syringe SC SCH ×2 (11:23→21:31)
--- NOTE | 2016-11-24 12:25 | PN ---
DATE: 11/24/2016 SUBJECTIVE: The patient has no complaints of any chest pain, no shortness of breath, no headache or dizziness. PHYSICAL EXAMINATION: VITAL SIGNS: Temperature is 98.5, pulse of 87, blood pressure is 110/69 and respirations 18. GENERAL: The patient is lying in bed, flat, comfortable. HEENT: No oral lesion. Anicteric sclerae. Moist mucosa. NECK: No JVD, adenopathy, or thyromegaly. CARDIOVASCULAR: S1 and S2, regular. No murmurs, rubs, or gallops. LUNGS: Clear to auscultation bilaterally. No wheeze, rales, or rhonchi. ABDOMEN: Bowel sounds are positive, soft, nontender and nondistended. EXTREMITIES: No cyanosis, clubbing or edema. LABS: Creatinine is 0.7. ASSESSMENT: 1. Right-sided pleural effusion, status post thoracentesis of 1800 mL of fluid. 2. 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 3. Hyponatremia, improved. 4. Hypertension. 5. Atrial fibrillation. 6. Glaucoma. PLAN: The patient is currently getting physical therapy on the transitional care unit. She is on Alphagan for her glaucoma. She is going to continue with Lovenox for DVT prophylaxis. She is on Percocet for pain. The patient is going to continue with her prednisone. She is being followed by Dr. Love from pulmonary. The patient is on Trusopt for her eye drops as well as latanoprost. She is on Xopenex for her breathing. The patient is on a heart-healthy diet. She is being followed by palliative care. I appreciate Aaliyah Mcdaniel's note; the family is to make decisions regarding discharge plan and possible hospice services. Rick Knight MD
[2016-11-24] MEDS: Latanoprost 2.5 ml Opht Soln OD SCH (21:33)
[2016-11-25] MEDS: Levalbuterol 0.63 MG/3 ML Inhal Soln UD IH SCH ×4 (01:27→20:33)
[2016-11-25 06:13] LABS: HEMATOCRIT 35.7 % (36.0-48.0); MEAN CELL VOLUME 85.2 fl (80.0-105.0); MEAN CORPUSCULAR HEMOGLOBIN 27.7 pg (25.0-35.0); MEAN CORPUSCULAR HGB CONC 32.5 g/dl (31.0-37.0); MEAN PLATELET VOLUME 9.5 fl (7.0-11.0); WHITE BLOOD COUNT 12.3 10^3/ul (4.5-11.0)
[2016-11-25 06:36] LABS: ALB/GLOB RATIO 1.2 (1.1-1.8); ALKALINE PHOSPHATASE 51 U/L (38-126); ALT/SGPT 41 U/L (7-56); AST/SGOT 21 U/L (14-36); BILIRUBIN,TOTAL 0.5 mg/dL (0.2-1.3); BLOOD UREA NITROGEN 13 mg/dL (7-21); CALCIUM 8.5 mg/dL (8.4-10.5); CARBON DIOXIDE 30 mmol/L (21-33); CHLORIDE 94 mmol/L (98-107); GFR AFRICAN-AMERICAN > 60; GLUCOSE,RANDOM 84 mg/dL (70-110); MAGNESIUM 1.9 mg/dL (1.7-2.2); POTASSIUM 3.8 mmol/L (3.6-5.0); SODIUM 131 mmol/L (132-148); TOTAL PROTEIN 5.5 g/dL (5.8-8.3)
[2016-11-25] MEDS: Budesonide 0.5 mg/2 ml Inhal Susp UD IH SCH ×2 (07:43→20:33)
--- NOTE | 2016-11-25 08:26 | PN ---
SUBJECTIVE: The patient appears comfortable this morning. She is not short of breath at rest. PHYSICAL EXAMINATION: VITAL SIGNS: Temperature is 97.7, pulse 46, respirations 14, blood pressure 122/51. Oxygen saturation on nasal cannula is 96%. HEENT: Normocephalic and atraumatic. NECK: No JVD. CARDIOVASCULAR: Systolic ejection murmur at the lower left sternal border. No S3 gallop. LUNGS: Improved breath sounds-right lung. Very minimal rhonchi-left lung. No wheezing. EXTREMITIES: No clubbing, cyanosis, or edema. Calves are nontender to palpation. GASTROINTESTINAL: Abdomen is soft, nontender, and nondistended. Bowel sounds are positive. SKIN: No acute rash. NEUROLOGIC: Limited at the present time. IMPRESSION: 1. Acute bronchitis. 2. Chronic obstructive pulmonary disease. 3. 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 4. Recurrent large right pleural effusion, status post repeat thoracentesis. 5. Rapid atrial fibrillation. 6. Mild anemia. PLAN: The patient appears comfortable this morning. She is not short of breath at rest. She does tell me that she is feeling better overall. On physical exam, there is no significant bronchospasm noted. In addition, there is no significant alveolar-arterial gradient. I will continue with the current nebulizer treatments and low-dose oral steroids (decreased yesterday) for now. Clinical status of the patient is certainly improved-compared to the initial presentation. However, again, the future status/prognosis for this patient remains very poor. All are aware. Gabo Love MD MTDYvonne
[2016-11-25] MEDS: Enoxaparin 30 mg Syringe SC SCH ×2 (10:00→21:21)
[2016-11-25] MEDS: Brimonidine 0.15% 50 DROP/5 ML BOTTLE OD SCH ×2 (10:01→17:43)
[2016-11-25] MEDS: Dorzolamide 2% Opht Sol 10ml OD SCH ×3 (10:03→17:46)
[2016-11-25] MEDS: Latanoprost 2.5 ml Opht Soln OD SCH (21:22)
[2016-11-26] MEDS: Levalbuterol 0.63 MG/3 ML Inhal Soln UD IH SCH ×4 (02:00→20:15)
[2016-11-26] MEDS: Budesonide 0.5 mg/2 ml Inhal Susp UD IH SCH ×2 (07:35→20:15)
--- NOTE | 2016-11-26 08:46 | PN ---
DATE: 11/26/2016 PULMONARY PROGRESS NOTE SUBJECTIVE: The patient appears comfortable this morning. She is not short of breath at rest. PHYSICAL EXAMINATION: VITAL SIGNS: Temperature is 97.4, pulse this morning is 90, respirations are 16/18, and blood pressure is 114/65. Oxygen saturation on nasal cannula is 96%. HEENT: Normocephalic and atraumatic. N o JVD. CARDIOVASCULAR: Systolic ejection murmur at the lower left sternal border. No S3 gallop. LUNGS: Improved breath sounds - right lung. Minimal/less rhonchi - left lung. No wheezing. EXTREMITIES: No clubbing, cyanosis or edema. Calves are nontender to palpation. GASTROINTESTINAL: Abdomen is soft, nontender and nondistended. Bowel sounds are positive. SKIN: No acute rash. NEUROLOGIC: Examination is limited at the present time. IMPRESSION 1. Acute bronchitis. 2. Chronic obstructive pulmonary disease. 3. 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 4. Recurrent large right pleural effusion, status post repeat thoracentesis. 5. Rapid atrial fibrillation. 6. Mild anemia. PLAN: The patient appears comfortable this morning. She is not short of breath at rest. She is certainly feeling better overall. On physical exam, her bronchospasm continues to resolve. In addition, there is no significant alveolar-arterial gradient. I will continue with the current nebulizer treatments and low-dose oral steroids for now. The patient's clinical status is certainly improved - compared to the initial presentation. However, again, the future status/prognosis for this patient remains very poor. All are aware. Gabo Love MD MTDYvonne
[2016-11-26] MEDS: Enoxaparin 30 mg Syringe SC SCH ×2 (10:03→21:46)
[2016-11-26] MEDS: Dorzolamide 2% Opht Sol 10ml OD SCH ×3 (10:04→17:59)
[2016-11-26] MEDS: Brimonidine 0.15% 50 DROP/5 ML BOTTLE OD SCH ×2 (10:06→18:01)
[2016-11-26] MEDS: Latanoprost 2.5 ml Opht Soln OD SCH (21:42)
[2016-11-27] MEDS: Levalbuterol 0.63 MG/3 ML Inhal Soln UD IH SCH ×4 (02:30→20:02)
[2016-11-27] MEDS: Budesonide 0.5 mg/2 ml Inhal Susp UD IH SCH ×2 (07:38→20:02)
[2016-11-27] MEDS: Enoxaparin 30 mg Syringe SC SCH ×2 (10:17→22:01)
[2016-11-27] MEDS: Dorzolamide 2% Opht Sol 10ml OD SCH ×4 (10:19→18:20)
[2016-11-27] MEDS: Brimonidine 0.15% 50 DROP/5 ML BOTTLE OD SCH ×2 (10:19→18:18)
--- NOTE | 2016-11-27 11:28 | PN ---
DATE: 11/27/2016 SUBJECTIVE: The patient has no complaints of any chest pain, no shortness of breath, no headaches or dizziness. PHYSICAL EXAMINATION VITAL SIGNS: Temperature is 97.9, pulse of 76, blood pressure 105/56 and respiration is 16. GENERAL: The patient is lying in bed, flat, comfortable. HEENT: No oral lesion. Anicteric sclerae. Moist mucosa. NECK: No JVD, adenopathy, or thyromegaly. CARDIOVASCULAR: S1 and S2, regular. No murmurs, rubs, or gallops. LUNGS: Clear to auscultation bilaterally. No wheeze, rales, or rhonchi. ABDOMEN: Bowel sounds are positive, soft, nontender and nondistended. EXTREMITIES: No cyanosis, clubbing or edema. LABS: White count of 12.3, hemoglobin 11.6, creatinine 0.6, sodium is 131. ASSESSMENT: 1. Right sided pleural effusion, status post thoracentesis of 1800 mL of fluid. 2. 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 3. Hyponatremia. 4. Hypertension. 5. Atrial fibrillation. 6. Glaucoma. PLAN: The patient is currently on Lasix daily. She is on her Alphagan for her eyedrops. She is receiving Lovenox for DVT prophylaxis. The patient is on Xopenex. She is going to continue with her heart-healthy diet. Rick Knight MD
[2016-11-27] MEDS: Latanoprost 2.5 ml Opht Soln OD SCH (22:01)
[2016-11-28] MEDS: Levalbuterol 0.63 MG/3 ML Inhal Soln UD IH SCH ×5 (01:42→21:16)
[2016-11-28] MEDS: Enoxaparin 30 mg Syringe SC SCH ×2 (09:28→21:43)
[2016-11-28] MEDS: Brimonidine 0.15% 50 DROP/5 ML BOTTLE OD SCH (09:28)
[2016-11-28] MEDS: Dorzolamide 2% Opht Sol 10ml OD SCH (09:29)
[2016-11-28] MEDS: Budesonide 0.5 mg/2 ml Inhal Susp UD IH SCH ×3 (16:06→21:16)
[2016-11-28] MEDS: Latanoprost 2.5 ml Opht Soln OD SCH (21:44)
--- NOTE | 2016-11-28 23:56 | CP.PCM.PN ---
Subjective - Date & Time of Evaluation Date of Evaluation: 11/25/16 Time of Evaluation: 10:00 - Subjective Subjective: Comfortable in bed. Breathing improved. No chest pain. Objective - Vital Signs/Intake and Output Vital Signs (last 24 hours): Temp Pulse Resp BP Pulse Ox 97.6 F 88 15 107/62 98 11/28/16 16:13 11/28/16 17:23 11/28/16 16:13 11/28/16 17:23 11/28/16 16:13 - Medications Medications: Current Medications Brimonidine Tartrate (Alphagan P 0.15% Opht) 1 drop OD Q8H MARY JANE PRN Reason: Protocol Last Admin: 11/28/16 09:28 Dose: Not Given Budesonide (Pulmicort Respules) 0.5 mg IH [id number] MARY JANE PRN Reason: Protocol Last Admin: 11/28/16 21:16 Dose: 0.5 mg Dorzolamide HCl (Trusopt) 0 ml OD TID MARY JANE PRN Reason: Protocol Last Admin: 11/28/16 09:29 Dose: Not Given Enoxaparin Sodium (Lovenox) 30 mg SC Q12 MARY JANE PRN Reason: Protocol Last Admin: 11/28/16 21:43 Dose: 30 mg Furosemide (Lasix) 40 mg PO DAILY [facility] Last Admin: 11/28/16 09:28 Dose: 40 mg Latanoprost (Xalatan Opht) 0 ml OD HS MARY JANE PRN Reason: Protocol Last Admin: 11/28/16 21:44 Dose: 2.5 ml Levalbuterol HCl (Xopenex) 0.63 mg IH Q2H PRN; Protocol PRN Reason: Shortness of Breath Last Admin: 11/23/16 07:45 Dose: 0.63 mg Levalbuterol HCl (Xopenex) 0.63 mg IH [id number] MARY JANE PRN Reason: Protocol Last Admin: 11/28/16 21:16 Dose: 0.63 mg Metoprolol Tartrate (Lopressor) 100 mg PO 0800,1800 MARY JANE PRN Reason: Protocol Last Admin: 11/28/16 17:23 Dose: 100 mg Prednisone (Prednisone Tab) 20 mg PO DAILY [facility] Last Admin: 11/28/16 09:28 Dose: 20 mg - Labs Labs: 11/25/16 06:11/25/16 06:04 - Constitutional Appears: Chronically Ill - Head Exam Head Exam: ATRAUMATIC, NORMAL INSPECTION, NORMOCEPHALIC - Eye Exam Eye Exam: Normal appearance - Respiratory Exam Respiratory Exam: Clear to Ausculation Bilateral, NORMAL BREATHING PATTERN - Cardiovascular Exam Cardiovascular Exam: REGULAR RHYTHM, +S1 - GI/Abdominal Exam GI & Abdominal Exam: Soft, Normal Bowel Sounds - Back Exam Back Exam: NORMAL INSPECTION - Neurological Exam Neurological Exam: Awake - Skin Skin Exam: Normal Color Assessment and Plan - Assessment and Plan (Free Text) Assessment: 1. Right lung squamous cell cancer. right lung pleural effusion she has advanced malignancy. I discuss with daughter goals of care. Palliative services consult requested.
[2016-11-29] MEDS: Levalbuterol 0.63 MG/3 ML Inhal Soln UD IH SCH ×3 (01:59→13:25)
[2016-11-29] MEDS: Budesonide 0.5 mg/2 ml Inhal Susp UD IH SCH (07:47)
--- NOTE | 2016-11-29 09:10 | PN ---
PULMONARY PROGRESS NOTE DATE: 11/29/2016 SUBJECTIVE: The patient appears comfortable this morning. She is not short of breath at rest. PHYSICAL EXAMINATION: VITAL SIGNS: Temperature is 97.6, pulse 88, respirations 15, blood pressure 107/62. Oxygen saturation on nasal cannula is 98%. HEENT: Normocephalic, atraumatic. NECK: No JVD. CARDIOVASCULAR: Systolic ejection murmur at the lower left sternal border. No S3 gallop. LUNGS: Improved breath sounds - right lung. Left lung clear. No wheezing. EXTREMITIES: No clubbing, cyanosis or edema. Calves are nontender to palpation. GI: Abdomen is soft, nontender and nondistended. Bowel sounds are positive. SKIN: No acute rash. NEUROLOGIC: Exam limited at the present time. IMPRESSION 1. Acute bronchitis. 2. Chronic obstructive pulmonary disease. 3. 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 4. Recurrent large right pleural effusion, status post repeat thoracentesis. 5. Rapid atrial fibrillation. 6. Mild anemia. PLAN: The patient appears comfortable this morning. She is not short of breath at rest. She states to feeling much better overall. On physical exam, her bronchospasm continues to resolve. In addition, there is no significant alveolar-arterial gradient. I will continue the current nebulizer treatments and decrease the oral steroids this morning. Clinical status of the patient is certainly improved - compared to the initial presentation. However, again, the future status/prognosis for this patient remains very poor. All are aware. I will discuss the above with the attending physician. Gabo Love MD MTDYvonne
[2016-11-29] MEDS: Enoxaparin 30 mg Syringe SC SCH (09:34)
[2016-11-29] MEDS: Brimonidine 0.15% 50 DROP/5 ML BOTTLE OD SCH ×2 (09:36→09:46)
[2016-11-29] MEDS: Dorzolamide 2% Opht Sol 10ml OD SCH ×2 (09:36→09:46)
[2016-11-29 11:02] VITALS: BP 86/54; PULSE 81; RESP 12; TEMP 97; O2SAT 96
--- NOTE | 2016-11-30 03:57 | DS ---
HISTORY OF PRESENT ILLNESS: This is an 86-year-old female who had come into the hospital for pleural effusion. The patient had thoracentesis done. She was sent to the transitional care unit for rehab. The patient has no complaints of any chest pain, no shortness of breath, no headache or dizziness. She was placed on Lasix for improvement of her pleural effusion. PHYSICAL EXAMINATION: VITAL SIGNS: Temperature is 97.6, pulse of 88, blood pressure 107/62, respirations 15 and O2 saturation is 98%. GENERAL: The patient is lying in bed, flat, comfortable. HEENT: No oral lesion. Anicteric sclerae. Moist mucosa. NECK: No JVD, adenopathy, or thyromegaly. CARDIOVASCULAR: S1 and S2, regular. No murmurs, rubs, or gallops. LUNGS: Clear to auscultation bilaterally. No wheeze, rales, or rhonchi. ABDOMEN: Bowel sounds are positive, soft, nontender and nondistended. EXTREMITIES: No cyanosis, clubbing or edema. ASSESSMENT: 1. Right-sided pleural effusion, status post thoracentesis of 1800 mL. 2. 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 3. Hyponatremia. 4. Hypertension. 5. Atrial fibrillation. 6. Glaucoma. PLAN: The patient is going to be on Lasix daily, I will put potassium. She is on Lovenox for DVT prophylaxis. The patient is going to be on Xopenex. The patient would continue with heart-healthy diet. Rick Knight MD
== END 2016-11-29 14:00 | disposition home or self-care (01) | DRG 181 ==
LOC: TRCU 17:20
PROVIDERS: ADMIT Internal Medicine Nephrology; ATTEND Internal Medicine Nephrology
PROC: F07Z9FZ Gait Training/Functional Ambulation Treatment using Assistive, Adaptive, Supportive or Protective Equipment (ICD-10-PCS; principal; 2016-11-22)
PROC: F07M6ZZ Therapeutic Exercise Treatment of Musculoskeletal System - Whole Body (ICD-10-PCS; 2016-11-22)
PROC: F08Z2ZZ Grooming/Personal Hygiene Treatment (ICD-10-PCS; 2016-11-22)
PROC: F08Z1ZZ Dressing Techniques Treatment (ICD-10-PCS; 2016-11-22)
DX: C34.90 Malignant neoplasm of unspecified part of unspecified bronchus or lung (principal); J91.0 Malignant pleural effusion; J44.0 Chronic obstructive pulmonary disease with (acute) lower respiratory infection; I50.9 Heart failure, unspecified; I11.0 Hypertensive heart disease with heart failure; I27.2 Other secondary pulmonary hypertension; E87.1 Hypo-osmolality and hyponatremia; I48.91 Unspecified atrial fibrillation; I08.1 Rheumatic disorders of both mitral and tricuspid valves; D64.9 Anemia, unspecified; H40.9 Unspecified glaucoma; Z87.891 Personal history of nicotine dependence; J20.9 Acute bronchitis, unspecified; H54.42 Blindness, left eye, normal vision right eye; H26.9 Unspecified cataract; Z98.41 Cataract extraction status, right eye; Z85.118 Personal history of other malignant neoplasm of bronchus and lung; R53.81 Other malaise

== ENCOUNTER 2016-12-24 09:36 | Inpatient (IN) | payer MEDICARE, OTHER ==
[2016-12-24] MEDS ORDERED: Levalbuterol 0.63 MG/3 ML Inhal Soln UD IH STA (10:02)
--- NOTE | 2016-12-24 10:23 | ED PDOC ---
Arrival/HPI - General Chief Complaint: Shortness Of Breath Time Seen by Provider: 12/24/16 09:42 - History of Present Illness Time/Duration: 1-3 hours Past Medical History - Infectious Disease Hx of Infectious Diseases: None - Reproductive Menopause: No - Cardiac Hx Cardiac Disorders: Yes (Afib) Hx Congestive Heart Failure: Yes Hx Hypertension: Yes - Pulmonary Hx Chronic Obstructive Pulmonary Disease (COPD): Yes - HEENT Hx Blind: Yes (left eye) Hx Cataracts: Yes (r eye sx) - Hematological/Oncological Hx Cancer: (pt is denying lung cancer) Other/Comment: stage 4 lung ca - Integumentary Other/Comment: buttocks slightly reddened, multiple skin discolorations ble, dry skin feet - Musculoskeletal/Rheumatological Hx Falls: No - Gastrointestinal Hx Gastrointestinal Disorders: No - Genitourinary/Gynecological Hx Genitourinary Disorders: (URGENCY) - Psychiatric Hx Substance Use: No - Surgical History Other/Comment: thoracenthesis - Anesthesia Hx Anesthesia Reactions: No Family/Social History Smoking Status: Former Smoker Hx Alcohol Use: No Hx Substance Use: No Allergies/Home Meds Allergies/Adverse Reactions: Allergies No Known Allergies Allergy (Verified 11/17/16 13:37) Home Medications: Home Meds Medication Instructions Recorded Confirmed Albuterol Sulfate [Proair Hfa] 0.09 mg IH DAILY PRN 10/07/16 12/24/16 Brimonidine 0.15% [Alphagan P 1 drop OP TID 10/07/16 12/24/16 0.15% Opht] Dorzolamide HCl 1 drop OP BID 10/07/16 12/24/16 Latanoprost 0.005% Opht [Xalatan 1 drp OP HS 10/07/16 12/24/16 Opht] Salmeterol Xinafoate/Fluticaso 2 puff IH AMHS 10/07/16 12/24/16 [Advair Hfa 230-21] Physical Exam Vital Signs Temp Pulse Resp BP Pulse Ox 12/24/16 09:43 97.4 F L 90 22 132/72 99 Medical Decision Making - RAD Interpretation Radiology Orders: 12/24/16 10:00 CHEST PORTABLE [RAD] Stat - Medication Orders Current Medication Orders: Levalbuterol HCl (Xopenex) 0.63 mg IH Q15M MARY JANE Stop: 12/24/16 10:46 Discontinued Medications Levalbuterol HCl (Xopenex) 0.63 mg IH ONCE STA Stop: 12/24/16 10:03 Methylprednisolone (Solu-Medrol) 125 mg IVP STAT STA Stop: 12/24/16 10:00 Disposition/Present on Arrival - Present on Arrival History of DVT/PE: No History of Uncontrolled Diabetes: No Urinary Catheter: No History of Decub. Ulcer: No History Surgical Site Infection Following: None - Disposition
--- NOTE | 2016-12-24 10:23 | RAD ---
HISTORY: SOB COMPARISON: 11/18/2016 FINDINGS: LUNGS: Complete opacification of the right main thorax. There is some right-sided volume loss with shift of the heart and mediastinum towards the right side. This is unchanged in extent when compared to the prior examination. No left-sided infiltrate. PLEURA: No left pleural effusion or pneumothorax. Right-sided opacification may be due at least in part to pleural effusion. CARDIOVASCULAR: Limited evaluation OSSEOUS STRUCTURES: No significant abnormalities. VISUALIZED UPPER ABDOMEN: Normal. OTHER FINDINGS: None IMPRESSION: Complete opacification of right main thorax with volume loss unchanged in extent compared to 11/18/2016.
[2016-12-24] MEDS: Levalbuterol 0.63 MG/3 ML Inhal Soln UD IH SCH ×2 (10:30→10:45)
--- NOTE | 2016-12-24 10:34 | ED PDOC ---
Arrival/HPI - History of Present Illness Time/Duration: 1-3 hours Symptom Onset: Gradual Symptom Course: Worsening Activities at Onset: Rest, Light Context: Home - General Chief Complaint: Shortness Of Breath Time Seen by Provider: 12/24/16 09:42 - History of Present Illness Narrative History of Present Illness (Text): 12/24/16 10:22 Ms. Dang is an 86 year old female with a past medical history significant for SCC of the lung, CHF and A-Fib who presents to the [facility] ED with a chief complaint of SOB since this morning when she awoke. Patient states that when she awoke this morning at approximately 0700 it was "harder to breathe". She made her daughter aware of this, who was with her at the time, and she thought it would be best to come to the ED for further evaluation. She reports giving herself a breathing treatment with moderate relief. Patient endorses SOB, CHRISTIAN and increased white to clear sputum but denies fever, chills, headache, changes in her vision, dysphagia, chest pain, palpitations, edema, calf pain, cough, wheezing, hemoptysis, abdominal pain, N/V, diarrhea, constipation, burning with urination, rash, neck pain, back pain or focal weakness. (MARTITA CRESPO) Past Medical History - Provider Review Nursing Documentation Reviewed: Yes - Travel History Have you recently traveled outside [place] w/in the past 3 mons?: No - Past History Past History: Non-Contributing - Infectious Disease Hx of Infectious Diseases: None - Reproductive Menopause: No - Cardiac Hx Cardiac Disorders: Yes (Afib) Hx Congestive Heart Failure: Yes Hx Hypertension: Yes - Pulmonary Hx Chronic Obstructive Pulmonary Disease (COPD): Yes - HEENT Hx Blind: Yes (left eye) Hx Cataracts: Yes (r eye sx) - Hematological/Oncological Hx Cancer: (pt is denying lung cancer) Other/Comment: stage 4 lung ca - Integumentary Other/Comment: buttocks slightly reddened, multiple skin discolorations ble, dry skin feet - Musculoskeletal/Rheumatological Hx Falls: No - Gastrointestinal Hx Gastrointestinal Disorders: No - Genitourinary/Gynecological Hx Genitourinary Disorders: (URGENCY) - Psychiatric Hx Substance Use: No - Surgical History Other/Comment: thoracenthesis - Anesthesia Hx Anesthesia Reactions: No Family/Social History - Physician Review Nursing Documentation Reviewed: Yes Family/Social History: Unknown Family HX Smoking Status: Former Smoker Hx Alcohol Use: No Hx Substance Use: No Allergies/Home Meds Allergies/Adverse Reactions: Allergies No Known Allergies Allergy (Verified 11/17/16 13:37) Home Medications: Home Meds Medication Instructions Recorded Confirmed Albuterol Sulfate [Proair Hfa] 0.09 mg IH DAILY PRN 10/07/16 12/24/16 Brimonidine 0.15% [Alphagan P 1 drop OP TID 10/07/16 12/24/16 0.15% Opht] Dorzolamide HCl 1 drop OP BID 10/07/16 12/24/16 Latanoprost 0.005% Opht [Xalatan 1 drp OP HS 10/07/16 12/24/16 Opht] Salmeterol Xinafoate/Fluticaso 2 puff IH AMHS 10/07/16 12/24/16 [Advair Hfa 230-21] Review of Systems - Physician Review All systems were reviewed & negative as marked: Yes - Review of Systems Constitutional: Normal. absent: Fevers, Night Sweats Eyes: Normal. absent: Vision Changes ENT: Normal. absent: Sore Throat, Rhinorrhea Respiratory: SOB, Sputum (endorses increased white to clear). absent: Normal, Cough, Wheezing Cardiovascular: Normal. absent: Chest Pain, Palpitations, Edema, Calf Pain, CHRISTIAN , Syncope Gastrointestinal: Normal, Other (Denies dysphagia). absent: Abdominal Pain, Constipation, Diarrhea, Nausea, Vomiting Genitourinary Female: Normal. absent: Dysuria Musculoskeletal: Normal. absent: Back Pain, Neck Pain Skin: Normal. absent: Rash Neurological: Normal. absent: Headache, Focal Weakness Endocrine: Normal Hemo/Lymphatic: Normal Psychiatric: Normal Physical Exam Vital Signs Reviewed: Yes Temperature: Afebrile Blood Pressure: Normal Pulse: Regular Respiratory Rate: Normal Appearance: Positive for: Well-Appearing, Non-Toxic, Comfortable Pain Distress: None Mental Status: Positive for: Alert and Oriented X 3 - Systems Exam Head: Present: Atraumatic, Normocephalic Pupils: Present: PERRL Extroacular Muscles: Present: EOMI Conjunctiva: Present: Normal Mouth: Present: Moist Mucous Membranes Pharnyx: Present: Normal. No: ERYTHEMA, EXUDATE, TONSILS ENLARGED Nose (External): Present: Atraumatic Nose (Internal): Present: Normal Inspection Neck: Present: Normal Range of Motion, Trachea Midline. No: Meningeal Signs, MIDLINE TENDERNESS, Paraspinal Tenderness, JVD, Lymphadenopathy Respiratory/Chest: Present: Good Air Exchange, Decreased Breath Sounds ( Diffusely on right), Rhonchi (Scattered throughout L>R). No: Clear to Auscultation, Respiratory Distress, Accessory Muscle Use, Wheezes, Rales, Retracting, Tachypneic, Tender to Palpation, Other Cardiovascular: Present: Regular Rate and Rhythm, Normal S1, S2, Peripheal Pulses Present. No: Murmurs, Irregular Rhythm, Tachycardic, Bradycardic Abdomen: Present: Normal Bowel Sounds. No: Tenderness, Distention, Peritoneal Signs, Rebound, Guarding Back: Present: Normal Inspection. No: CVA Tenderness, Midline Tenderness, Paraspinal Tenderness Upper Extremity: Present: Normal Inspection, Normal ROM, NORMAL PULSES, Capillary Refill < 2s. No: Cyanosis, Edema Lower Extremity: Present: Normal Inspection, NORMAL PULSES, Normal ROM, Capillary Refill < 2 s. No: Edema, CALF TENDERNESS, Annmarie's Sign Neurological: Present: GCS=15, CN II-XII Intact, Speech Normal Skin: Present: Warm, Dry, Normal Color. No: Rashes Lymphatic: No: Cervical Adenopathy Psychiatric: Present: Alert, Oriented x 3, Normal Insight, Normal Concentration Vital Signs Temp Pulse Resp BP Pulse Ox 12/24/16 14:06 99 H 22 125/66 98 12/24/16 10:20 25 H 12/24/16 09:43 97.4 F L 90 22 132/72 99 Medical Decision Making - Lab Interpretations I have reviewed the lab results: Yes - RAD Interpretation Axle And Frame Mechanic: Radiologist - EKG Interpretation Interpreted by ED Physician: Yes Type: 12 lead EKG ED Course and Treatment: 12/24/16 10:37 Impression: 86 year old female with a past medical history significant for SCC of the lung who presents to the [facility] ED with a chief complaint of SOB since this morning when she awoke. Plan: -CBC, CMP, Cardiac Iso's, BNP, VBG, PT/INR, aPTT and UA -EKG -Chest X-Ray (portable) -Xopenex IH (x3) -IV Solu-Medrol 125mg -Reassess and disposition Prior Visits: All results and reports from previous visits reviewed. Patient was seen and evaluated for SOB with thoracocentesis revealing SCC of lung in 11/2016 (MARTITA CRESPO) - Lab Interpretations Lab Results: 12/24/16 10:50 12/24/16 10:50 Lab Results 12/24/16 11:30: pCO2 43, pO2 109.0 H, HCO3 30.6 H, ABG pH 7.46 H, ABG Total CO2 31.9 H, ABG O2 Saturation 98.6 H, ABG Base Excess 6.0 H, ABG Potassium 3.0 L, Sodium 133.0, Chloride 97.0 L, Glucose 113 H, Lactate 1.2, FiO2 32.0, Arterial Blood Potassium 3.0 L 12/24/16 10:50: PT 11.5, INR 1.04, APTT 30.4 12/24/16 10:50: Sodium 133, Chloride 88 L, Potassium 3.6, Carbon Dioxide 37 H, Anion Gap 12, BUN 15, Creatinine 0.8, Est GFR ( Amer) > 60, Est GFR (Non- Af Amer) > 60, Random Glucose 113 H, Calcium 9.1, Total Bilirubin 0.5, AST 22, ALT 31, Alkaline Phosphatase 68, Lactate Dehydrogenase 513, Total Creatine Kinase < 20 L, Troponin I 0.02 D, NT-Pro-B Natriuret Pep 717 H, Total Protein 6.2, Albumin 3.4, Globulin 2.8, Albumin/Globulin Ratio 1.2 12/24/16 10:50: pO2 25 L, VBG pH 7.35, VBG pCO2 72.0 H*, VBG HCO3 39.7 H, VBG Total CO2 41.9 H, VBG O2 Sat (Calc) 43.6, VBG Base Excess 11.0 H, VBG Potassium 3.5 L, Sodium 131.0 L, Chloride 91.0 L, Glucose 114 H, Lactate 2.1, FiO2 21.0, Venous Blood Potassium 3.5 L 12/24/16 10:50: WBC 12.9 H, RBC 4.25, Hgb 11.9 L, Hct 37.2, MCV 87.5, MCH 28.0, MCHC 32.0, RDW 15.4 H, Plt Count 354, MPV 9.5, Gran % 74.5 H, Lymph % (Auto) 14.2 L, Orange % (Auto) 10.9 H, Eos % (Auto) 0.2 L, Baso % (Auto) 0.2, Gran # 9.60 H, Lymph # 1.8, Orange # 1.4 H, Eos # 0.0, Baso # 0.02 - RAD Interpretation Radiology Orders: 12/24/16 10:00 CHEST PORTABLE [RAD] Stat - Medication Orders Current Medication Orders: Discontinued Medications Acetaminophen (Tylenol 325mg Tab) 650 mg PO Q4 PRN PRN Reason: Pain, Mild (1-3) Albuterol Sulfate (Albuterol 0.083% Inhal Saira (2.5 Mg/3 Ml) Ud) 2.5 mg INH [id number] [facility] Last Admin: 12/25/16 02:49 Dose: Not Given Non-Admin Reason: Patient Refused Brimonidine Tartrate (Alphagan P 0.15% Opht) 1 drop OD Q8H [facility] Last Admin: 12/27/16 16:32 Dose: Not Given Non-Admin Reason: Patient in OR/Vascular Budesonide (Pulmicort Respules) 0.5 mg IH [id number] [facility] Last Admin: 12/27/16 19:18 Dose: 0.5 mg Diltiazem HCl (Cardizem) 10 mg IVP ONCE ONE Stop: 12/25/16 10:45 Last Admin: 12/25/16 11:26 Dose: 10 mg IVP Administration Document 12/25/16 11:26 [facility] (Rec: 12/25/16 11:30 [facility] [id number]) Charges for Administration # of IVP Administrations 1 MAR Pulse and Blood Pressure Document 12/25/16 11:26 [facility] (Rec: 12/25/16 11:30 [facility] [id number]) Pulse Pulse Rate (60-90) 126 Blood Pressure Blood Pressure (100/60-150/90) 110/85 Diltiazem HCl (Cardizem) 30 mg PO QID [facility] Last Admin: 12/27/16 19:26 Dose: Not Given Non-Admin Reason: Patient Refused Dorzolamide HCl (Trusopt) 0 ml OD BID [facility] Last Admin: 12/27/16 19:27 Dose: Not Given Non-Admin Reason: Patient Refused Furosemide (Lasix) 40 mg PO DAILY [facility] Last Admin: 12/27/16 09:21 Dose: 40 mg MAR Blood Pressure Document 12/27/16 09:21 DH (Rec: 12/27/16 09:24 [id number] Blood Pressure Blood Pressure (100/60-150/90) 97/55 Sodium Chloride (Sodium Chloride 0.45%) 1,000 mls @ 80 mls/hr IV .[id number] MARY JANE Last Admin: 12/27/16 17:59 Dose: 80 mls/hr eMAR Start Stop Document 12/27/16 17:59 DH (Rec: 12/27/16 18:[address] [id number] Intravenous Solution Start Date 12/27/16 Start Time 17:00 Sodium Chloride (Sodium Chloride 0.9%) 1,000 mls @ 999 mls/hr IV .Q1H1M STA Stop: 12/27/16 15:42 Last Admin: 12/27/16 16:35 Dose: 999 mls/hr eMAR Start Stop Document 12/27/16 16:35 DH (Rec: 12/27/16 16:[address] [id number][facility] Intravenous Solution Start Date 12/27/16 Start Time 14:35 Sodium Chloride (Sodium Chloride 0.9%) 500 mls @ 999 mls/hr IV .Q31M STA Stop: 12/27/16 15:12 Last Admin: 12/27/16 16:35 Dose: 999 mls/hr eMAR Start Stop Document 12/27/16 16:35 DH (Rec: 12/27/16 16:[address] [id number]) Intravenous Solution Start Date 12/27/16 Start Time 13:58 Sodium Chloride (Sodium Chloride 0.9%) 500 mls @ 125 mls/hr IV .Q4H MARY JANE Latanoprost (Xalatan Opht) 0 ml OD HS MARY JANE Last Admin: 12/26/16 21:08 Dose: 2.5 ml Levalbuterol HCl (Xopenex) 0.63 mg IH ONCE STA Stop: 12/24/16 10:03 Levalbuterol HCl (Xopenex) 0.63 mg IH Q15M MARY JANE Stop: 12/24/16 10:46 Last Admin: 12/24/16 10:45 Dose: 0.63 mg Levalbuterol HCl (Xopenex) 0.63 mg IH [id number] MARY JANE Last Admin: 12/27/16 19:18 Dose: 0.63 mg Levalbuterol HCl (Xopenex) 0.63 mg IH Q2 PRN PRN Reason: Shortness of Breath Methylprednisolone (Solu-Medrol) 125 mg IVP STAT STA Stop: 12/24/16 10:00 Last Admin: 12/24/16 10:27 Dose: 125 mg IVP Administration Document 12/24/16 10:27 MR (Rec: 12/24/16 10:52 MR [id number]) Charges for Administration # of IVP Administrations 1 Methylprednisolone (Solu-Medrol) 30 mg IVP Q12 MARY JANE Last Admin: 12/27/16 09:24 Dose: 30 mg IVP Administration Document 12/27/16 09:24 DH (Rec: 12/27/16 09:24 DH [place] [id number]) Charges for Administration # of IVP Administrations 1 Metoprolol Tartrate (Lopressor) 50 mg PO 0800,1800 [facility] Last Admin: 12/27/16 19:26 Dose: Not Given Non-Admin Reason: Patient Refused Metoprolol Tartrate (Lopressor) 50 mg PO STAT STA Stop: 12/24/16 14:13 Last Admin: 12/24/16 15:07 Dose: 50 mg Metoprolol Tartrate (Lopressor) 5 mg IVP ONCE ONE Stop: 12/25/16 06:12 Last Admin: 12/25/16 06:21 Dose: 5 mg IVP Administration Document 12/25/16 06:21 CO (Rec: 12/25/16 06:24 CO [place] [id number]) Charges for Administration # of IVP Administrations 1 [facility] Pulse and Blood Pressure Document 12/25/16 06:21 CO (Rec: 12/25/16 06:24 [place] [id number]) Pulse Pulse Rate (60-90) 151 Blood Pressure Blood Pressure (100/60-150/90) 132/72 Morphine Sulfate (Morphine) 0.5 mg IVP Q6H PRN PRN Reason: Pain, severe (8-10) Last Admin: 12/27/16 16:46 Dose: 0.5 mg MAR Pain Assessment Document 12/27/16 16:46 DH (Rec: 12/27/16 16:47 DH [place] [id number]) Pain Reassessment Is this a pain reassessment? No Presence of Pain Presence of Pain Yes Pain Scale Used Pain Scale Used Numeric Location Left, Right or Bilateral Right Pain Location Body Site Chest Back IVP Administration Document 12/27/16 16:46 (Rec: 12/27/16 16:47 [id number]) Charges for Administration # of IVP Administrations 1 Re-Assess: IBETH Pain Assessment Document 12/27/16 17:46 (Rec: 12/27/16 19:27 [id number]) Pain Reassessment Is this a pain reassessment? Yes Sleep Is patient sleeping during reassessment? Yes Ondansetron HCl (Zofran Inj) 4 mg IVP Q6H PRN PRN Reason: Nausea/Vomiting Oxycodone/Acetaminophen (Percocet 5/325 Mg Tab) 1 tab PO Q4H PRN PRN Reason: Pain, moderate (4-7) Stop: 12/30/16 13:02 Potassium Chloride (Klor-Con 10) 10 meq PO BRK [facility] Last Admin: 12/27/16 08:15 Dose: 10 meq Disposition/Present on Arrival - Present on Arrival Any Indicators Present on Arrival: No History of DVT/PE: No History of Uncontrolled Diabetes: No Urinary Catheter: No History of Decub. Ulcer: No History Surgical Site Infection Following: None - Disposition Have Diagnosis and Disposition been Completed?: Yes Disposition Time: 12:35 - Disposition Diagnosis: Dyspnea Disposition: HOSPITALIZED Condition: GUARDED
[2016-12-24 11:00] LABS: VENOUS BLOOD PH 7.35 (7.32-7.43)
[2016-12-24 11:08] LABS: ALB/GLOB RATIO 1.2 (1.1-1.8); ALKALINE PHOSPHATASE 68 U/L (38-126); ALT/SGPT 31 U/L (7-56); AST/SGOT 22 U/L (14-36); BILIRUBIN,TOTAL 0.5 mg/dL (0.2-1.3); BLOOD UREA NITROGEN 15 mg/dL (7-21); CALCIUM 9.1 mg/dL (8.4-10.5); CARBON DIOXIDE 37 mmol/L (21-33); CHLORIDE 88 mmol/L (98-107); GFR AFRICAN-AMERICAN > 60; GLUCOSE,RANDOM 113 mg/dL (70-110); POTASSIUM 3.6 mmol/L (3.6-5.0); SODIUM 133 mmol/L (132-148); TOTAL PROTEIN 6.2 g/dL (5.8-8.3)
[2016-12-24 11:10] LABS: BASO # 0.02 K/mm3 (0.0-2.0); BASO % 0.2 % (0.0-3.0); EOS % 0.2 % (1.5-5.0); GRAN # 9.6 (1.4-6.5); GRAN % 74.5 % (50.0-68.0); HEMATOCRIT 37.2 % (36.0-48.0); LYMPH # 1.8 (1.2-3.4); LYMPH % 14.2 % (22.0-35.0); MEAN CELL VOLUME 87.5 fl (80.0-105.0); MEAN PLATELET VOLUME 9.5 fl (7.0-11.0); MONO # 1.4 (0.1-0.6); MONO % 10.9 % (1.0-6.0); RED CELL DISTRIBUTION WIDTH 15.4 % (11.5-14.5); WHITE BLOOD COUNT 12.9 10^3/ul (4.5-11.0)
[2016-12-24 11:19] LABS: INR 1.04 (0.93-1.08); PARTIAL THROMBOPLASTIN TIME 30.4 Seconds (25.1-36.5); TROPONIN I 0.02 ng/mL
[2016-12-24 11:34] LABS: ARTERIAL BLOOD GAS HCO3 30.6 mmol/L (21-28); ARTERIAL BLOOD GAS PH 7.46 (7.35-7.45)
[2016-12-24] MEDS: Potassium Chloride 10 mEq ER Tab PO SCH (15:04)
[2016-12-24] MEDS: Brimonidine 0.15% 50 DROP/5 ML BOTTLE OD SCH ×2 (15:04→21:32)
[2016-12-24] MEDS: Dorzolamide 2% Opht Sol 10ml OD SCH (17:35)
[2016-12-24] MEDS: Albuterol 0.083% Inhal Sol (2.5 mg/3 mL) UD INH SCH (19:40)
[2016-12-24] MEDS: Latanoprost 2.5 ml Opht Soln OD SCH (21:32)
[2016-12-24 22:47] LABS: URINE BILIRUBIN NEGATIVE (NEGATIVE); URINE BLOOD NEGATIVE (NEGATIVE); URINE GLUCOSE (UA) NEGATIVE (NEGATIVE); URINE KETONE NEGATIVE (NEGATIVE); URINE LEUKOCYTE ESTERASE NEGATIVE Leu/uL (NEGATIVE); URINE PROTEIN NEGATIVE mg/dL (<30 mg/dL); URINE UROBILINOGEN 0.2 E.U./dL (<1 E.U./dL)
--- NOTE | 2016-12-24 22:48 | CARD ---
APPROVED REPORT EKG Measurement Heart [id number] <Conclusion> Normal sinus rhythm Possible Left atrial enlargement Rightward axis Anterior infarct, age undetermined Abnormal ECG
[2016-12-24 22:57] LABS: URINE APPEARANCE CLEAR (CLEAR); URINE COLOR LIGHT YELLOW (YELLOW)
[2016-12-25] MEDS: Albuterol 0.083% Inhal Sol (2.5 mg/3 mL) UD INH SCH (02:49)
[2016-12-25] MEDS ORDERED: Metoprolol 1 mg/ml Inj IVP ONE ×2 (06:11→06:20)
[2016-12-25] MEDS: Brimonidine 0.15% 50 DROP/5 ML BOTTLE OD SCH ×4 (06:31→22:18)
[2016-12-25] MEDS ORDERED: Levalbuterol 0.63 MG/3 ML Inhal Soln UD IH PRN (06:33)
[2016-12-25] MEDS: Levalbuterol 0.63 MG/3 ML Inhal Soln UD IH SCH ×3 (07:52→19:20)
[2016-12-25] MEDS: Budesonide 0.5 mg/2 ml Inhal Susp UD IH SCH ×2 (07:52→19:20)
[2016-12-25] MEDS: Potassium Chloride 10 mEq ER Tab PO SCH (08:05)
--- NOTE | 2016-12-25 09:15 | CON ---
DATE: 12/25/2016 PULMONARY CONSULTATION REFERRING PHYSICIAN: Rick Knight MD REASON FOR CONSULTATION: Shortness of breath. HISTORY OF PRESENT ILLNESS: History is obtained via extensive discussion with the nurse. I have also reviewed the chart at length, and discussed the case with the patient at length. 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 There is no history of chest pain, coughing up of blood, or chest pain-made worse with deep respirations. There is no history of temperatures, chills or infectious exposure. There is no history of night sweats, weight loss or appetite change prior to the above events. No history of leg or calf pains. No history of syncope or diaphoresis. No history of recent travel or trauma. REVIEW OF SYSTEMS: No history of nausea, vomiting or diarrhea. No acute urinary symptoms. No new neurologic or musculoskeletal complaints. Rest of the review of systems is negative. ALLERGIES: NO KNOWN ALLERGIES. SOCIAL HISTORY: Positive for tobacco and negative for alcohol. FAMILY HISTORY: No inheritable diseases. HOME MEDICATIONS: Include Lopressor, Advair, ProAir, potassium and Lasix. PHYSICAL EXAMINATION: GENERAL: The patient is mildly short of breath, but in no acute distress. VITAL SIGNS: Temperature is 97.0, pulse on the monitor is 104, respiratory rate 20/22, blood pressure 132/72. Oxygen saturation on nasal cannula is 95%. HEENT: Normocephalic, atraumatic. NECK: No JVD. CARDIOVASCULAR: Systolic ejection murmur at the lower left sternal border. No S3 gallop. LUNGS: Bronchial breath sounds-right lung. Mild bilateral rhonchi. No wheezing.. EXTREMITIES: No clubbing, cyanosis or edema. Calves are nontender to palpation. GASTROINTESTINAL: Abdomen is soft, nontender, nondistended. Bowel sounds are positive. SKIN: No acute rash. NEUROLOGIC: Limited at the present time. PERTINENT LABORATORY DATA: Chest x-ray was done in the emergency room and reviewed. It again reveals significant opacification of the right lung. CBC: White count 12.9, hemoglobin 11.9, hematocrit 37.2, platelets of 354. Arterial blood gas was done on nasal cannula. Results are; pH 7.46, pCO2 of 43, pO2 of 109. Complete metabolic profile: Chloride 88, carbon dioxide 37, glucose 113. B-type natriuretic peptide 717. Rest of the metabolic profile is within normal limits. IMPRESSION: 1. Recurrent bronchitis. 2. Chronic obstructive pulmonary disease. 3. 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 4. Recurrent large right pleural effusion. 5. Rapid atrial fibrillation. 6. Mild anemia. PLAN: Again, I did discuss the case with the night nurse at length. I have also discussed the case with the patient at length, and reviewed the chart at length. The patient presents to [facility] with a 1-day history of worsening pulmonary symptoms. I did review the chest x-ray as above. The chest x-ray remains with significant opacification of the right lung. As noted above, the patient has undergone multiple thoracenteses. At this point in time, I would consider PleurX catheter placement. Dr. Hillman (Interventional Radiology) has been consulted. On physical exam, the patient is in mild bronchospasm. I will change to Xopenex nebulizer treatments (given the rapid atrial fibrillation) and add inhaled steroids. I will also add a small dose of intravenous steroids. The patient has responded to this regimen in the past. I have also reviewed the arterial blood gas. It is certainly acceptable at this point in time. The patient does feel better this morning and is clinically improved. The overall status/prognosis for this patient remains very poor. I will discuss the above with the attending physician this morning. Thank you very much for this pulmonary consultation. Gabo Love MD KELVIN
[2016-12-25] MEDS: Dorzolamide 2% Opht Sol 10ml OD SCH ×2 (09:30→17:58)
[2016-12-25] MEDS: MethylPREDNISolone 40 mg Vial IVP SCH ×2 (10:35→22:18)
--- NOTE | 2016-12-25 11:14 | HP ---
CHIEF COMPLAINT AND HISTORY OF PRESENT ILLNESS: This is an 86-year-old female who was coming into the hospital with complaints of shortness of breath. The patient has a history of squamous cell carcinoma of lung with malignant effusion on the right side. The patient says that she was getting more and more short of breath and so she came in for further evaluation. She has had thoracentesis done in the past with improvement. She is opted for medical management, conservative management of her cancer. The patient was to get thoracentesis done yesterday, but she could not be scheduled and so she was admitted. She is going to be scheduled on Tuesday. I did speak to Dr. Skyler Hillman. The patient has no fevers or chills. No nausea, no vomiting. No dysuria, frequency. No back pain. REVIEW OF SYMPTOMS: All other review of systems are within normal limits except as mentioned. ALLERGIES: NO KNOWN DRUG ALLERGIES. HOME MEDICATIONS: Albuterol, Alphagan, dorzolamide, Xalatan, Advair. SOCIAL HISTORY: She does smoke in the past, but is quit. She denies drinking alcohol. FAMILY HISTORY: Noncontributory. PHYSICAL EXAMINATION: VITAL SIGNS: Temperature is 97, pulse is 79, blood pressure 132/72, respirations 20, O2 saturation 95%. Height is 5 feet. Weight is 110 pounds. GENERAL: The patient lying in bed, uncomfortable, and in no acute distress. HEENT: Atraumatic and normocephalic. Anicteric sclerae. Moist mucosa. [place] conjunctivae. No oral lesions. NECK: No JVD, anterior and posterior adenopathy, thyromegaly, or bruits. CARDIOVASCULAR: S1 and S2 regular. No murmur, rubs, or gallop. LUNGS: Clear to auscultation bilaterally. No wheezes, rales, or rhonchi. ABDOMEN: Bowel sounds are positive. Soft, nontender and nondistended. No hepatosplenomegaly. No rebound and no guarding EXTREMITIES: No cyanosis, clubbing, or edema. NEUROLOGIC: No facial asymmetry. Tongue is midline. No uvula deviation. Power is 5/5 upper extremity and lower extremity. Sensation intact in upper extremity and lower extremity. PSYCHIATRIC: She is awake, alert and oriented x3. No anxiety or depression. She has normal affect. GENITOURINARY: No CVA tenderness. VASCULAR: 2+ pulses in the carotid pulses and pedal pulses. SKIN: No erythema or nodules SPINE: Shows normal curvature. EXTREMITIES: No Cyanosis and clubbing, no edema. LABORATORY DATA: White count of 12.9, hemoglobin 11.9. Chemistry showed a sodium 133, potassium is 3.6. Urine shows a blood is negative. Nitrate is negative. Bilirubin is negative. INR is 1.04. EKG shows a heart rate of 98 with sinus rhythm. QTC is 495. Chest x-ray shows a complete opacification of the right hemithorax, I did review it myself. ASSESSMENT: 1. Right-sided pleural effusion, malignant. 2. Squamous cell carcinoma of the lung. 3. Hyponatremia. 4. Hypertension. 5. Atrial fibrillation. PLAN: The patient's heart rate has elevated according to the telemetry monitoring this morning. She is on Lasix daily. She is receiving potassium replacement. She is on the metoprolol for her heart. She is on Xopenex. She was seen by Dr. Love as reviewed his notes. The patient is on steroids. I did speak to the patient's family. I initially tried to speak with Nunu, but she was not available. She is the main person to speak with. I had spoken to Maribel to update her. She will speak to Nunu and informed her. Continue to follow closely. Rick Knight MD
[2016-12-25] MEDS: Latanoprost 2.5 ml Opht Soln OD SCH (22:19)
--- NOTE | 2016-12-26 00:25 | CON ---
DATE: 12/25/2016 REQUESTING PHYSICIAN: Dr. Knight. REASON FOR CONSULTATION: Rapid atrial fibrillation. HISTORY OF PRESENT ILLNESS: This is an 86-year-old woman with a history of squamous cell carcinoma of the lung and recurrent right pleural effusion, who was admitted with dyspnea. She was noted to have atrial fibrillation with rapid ventricular response earlier today. She was given a bolus of IV Cardizem. She has been maintained on beta-tano as well. She is currently seen on telemetry. She feels more comfortable. She denies any prior cardiac history. She is unaware of any prior palpitations. Upon review of her prior records, she apparently has had paroxysmal atrial fibrillation in the past. Her last echocardiogram was performed last month, she has had normal LV size and function at this time with mild mitral regurgitation, moderate tricuspid regurgitation, and small intrapericardial effusion was noted. PAST MEDICAL HISTORY: Notable for the problems mentioned above. She has a history of COPD and hypertension. CURRENT MEDICATIONS: Include Lasix 40 mg daily, potassium supplement, Toprol 50 mg b.i.d., Pulmicort inhaler, Solu-Medrol, Trusopt, Xalatan, and Xopenex inhalers. ALLERGIES: NONE. SOCIAL HISTORY: She is a former smoker. She lives at home with her daughter in downstairs apartment. FAMILY HISTORY: Both parents are that cause unknown. REVIEW OF SYSTEMS: A 10-point review of systems is otherwise unremarkable. PHYSICAL EXAMINATION: GENERAL: She is somewhat frail appearing very elderly woman. VITAL SIGNS: Her blood pressure is 110/86 with a pulse of 110, respirations are 16. She is afebrile. HEENT: Normocephalic and atraumatic. NECK: Supple. No JVD noted. CHEST: Diminished breath sounds on the right. HEART: PMI is displaced laterally with irregular regular rhythm, systolic murmur is present in the left sternal border. ABDOMEN: Soft and nontender with normoactive bowel sounds. EXTREMITIES: No edema. SKIN: Warm and dry. PSYCHIATRIC: Normal mood and affect. NEUROLOGIC: No gross motor or sensory deficits are appreciable. DIAGNOSTIC DATA: White count 12.9, hemoglobin and hematocrit 11.9 and 37.2 with platelet count of 354,000. PT and PTT are normal. Arterial blood gas showed a pH of 7.46, PCO2 of 43, and PO2 of 109, potassium 3.6, BUN and creatinine 15 and 0.8. Troponin is 0.02. BNP is 717. Chest x-ray reveals a large right pleural effusion. Initial electrocardiogram reveals sinus rhythm with left atrial abnormality, rightward axis, prior anteroseptal myocardial infarction cannot be excluded. IMPRESSION: 1. Paroxysmal atrial fibrillation, currently with rapid rate. 2. Stage IV lung cancer with large pleural effusion. RECOMMENDATIONS: Oral diltiazem will be added to her metoprolol for heart rate control. If this is not affective, additional agents will be considered. She is tentatively schedule for thoracentesis on Tuesday. Anticoagulation will be withheld at this time. DNR and DNI status is noted. Discussion can be have with the patient and her family after her thoracentesis as to the appropriateness and feasibility of anticoagulant therapy given her recurrent atrial fibrillation. Thank you for this consultation. We will be happy to follow along through her hospital course. Jesus Solis MD
[2016-12-26] MEDS: Levalbuterol 0.63 MG/3 ML Inhal Soln UD IH SCH ×4 (01:16→19:29)
[2016-12-26] MEDS: Brimonidine 0.15% 50 DROP/5 ML BOTTLE OD SCH ×3 (05:42→21:15)
[2016-12-26] MEDS: Budesonide 0.5 mg/2 ml Inhal Susp UD IH SCH ×2 (07:27→19:29)
[2016-12-26] MEDS: Potassium Chloride 10 mEq ER Tab PO SCH (08:23)
--- NOTE | 2016-12-26 08:26 | PN ---
DATE: 12/26/2016 SUBJECTIVE: The patient is seen lying in bed in telemetry. She appears comfortable at the present time. She converted to sinus rhythm overnight. She denied any dyspnea at rest. CURRENT MEDICATIONS: Include diltiazem 30 mg q.i.d., Lasix 40 mg daily, potassium 10 mEq daily, metoprolol 50 mg b.i.d., Pulmicort inhaler, Solu-Medrol 30 mg q. 12 hours., Xopenex, and eye drops. OBJECTIVE: GENERAL: She is a very elderly woman who appears comfortable at rest. VITAL SIGNS: Her blood pressure is 106/68, with pulse of 56 and sinus, respirations are 14, and she is afebrile. HEENT: No JVD. CHEST: Diminished breath sounds on the right. HEART: PMI displaced laterally, systolic murmur is present in the left sternal border. ABDOMEN: Soft and nontender with normoactive bowel sounds. EXTREMITIES: No edema. DIAGNOSTIC DATA: Morning blood workup is pending. IMPRESSION: 1. Paroxysmal atrial fibrillation, currently in sinus rhythm, remains on beta-tano and calcium tano at this time. Not anticoagulated. Pending thoracentesis, planned for Tuesday. 2. Lung cancer with malignant effusion with recurrence, scheduled for thoracentesis tomorrow. 3. Rest of problems as noted. RECOMMENDATIONS: Current medications will be continued. Diltiazem and metoprolol will be continued in the event that she has recurrence of atrial fibrillation in order to allow for her adequate rate control. Anticoagulation is on hold. Pending her thoracentesis, a decision will need to made as to the appropriateness and safety of her anticoagulation following the procedure. We will continue to follow and make further recommendations as appropriate. Jesus Solis MD
[2016-12-26] MEDS: MethylPREDNISolone 40 mg Vial IVP SCH ×2 (09:24→21:08)
[2016-12-26] MEDS: Dorzolamide 2% Opht Sol 10ml OD SCH ×2 (09:28→18:03)
--- NOTE | 2016-12-26 09:52 | PN ---
DATE: 12/26/2016 SUBJECTIVE: The patient appears more comfortable this morning. She is not short of breath at rest. OBJECTIVE: VITALS: Temperature is 97.4, pulse 67, respirations 18, blood pressure 132/62. Oxygen saturation on nasal cannula ranges between 92% to 99%. HEENT: Normocephalic and atraumatic. NECK: No JVD. CARDIOVASCULAR: Systolic ejection murmur at the lower left sternal border. No S3 gallop. LUNGS: Bronchial breath sounds - right lung. Less rhonchi. No wheezing. EXTREMITIES: No clubbing, cyanosis or edema. Calves are nontender to palpation. GASTROINTESTINAL: Abdomen is soft, nontender and nondistended. Bowel sounds are positive. SKIN: No acute rash. NEUROLOGIC EXAM: Limited at the present time. IMPRESSION: 1. Recurrent bronchitis. 2. Chronic obstructive pulmonary disease. 3. Advanced squamous cancer of the right lung. 4. Recurrent large right pleural effusion. 5. Rapid atrial fibrillation. 6. Mild anemia. PLAN: The patient appears more comfortable this morning. She is not short of breath at rest. She does state to feeling better overall. On physical exam, her bronchospasm is less this morning. In addition, there is no significant alveolar-arterial gradient. I will continue the current nebulizer treatments and low-dose intravenous steroids for now. I did discuss the case with the night nurse at length. The night nurse stated that the patient had a good night. The night nurse also stated that the patient is scheduled for thoracentesis tomorrow morning. I will also discuss the case with Dr. Skyler Hillman tomorrow morning - in reference to possibly proceeding with a PleurX catheter. Input by cardiology is noted. The heart rate is much more controlled this morning. Clinical status of the patient has certainly improved - compared to the initial presentation. However, again,the future status/prognosis for this patient remains very poor. She is currently a DNR/DNI status. I will discuss the above with Dr. Knight. Gabo Love MD MTDYvonne
--- NOTE | 2016-12-26 14:38 | PN ---
DATE: 12/26/2016 SUBJECTIVE: The patient has no complaints of any chest pain, no shortness of breath, no headaches. PHYSICAL EXAMINATION: VITAL SIGNS: Temperature is 97.4, pulse of 67, blood pressure 143/71, respirations 18. GENERAL: The patient is lying in bed, flat, comfortable. HEENT: No oral lesion. Anicteric sclerae. Moist mucosa. NECK: No JVD, adenopathy, or thyromegaly. CARDIOVASCULAR: S1 and S2, regular. No murmurs, rubs, or gallops. LUNGS: Clear to auscultation bilaterally. No wheeze, rales, or rhonchi. ABDOMEN: Bowel sounds are positive, soft, nontender and nondistended. EXTREMITIES: no cyanosis, clubbing or edema. ASSESSMENT: 1. Right-sided pleural effusion, malignant. 2. Squamous cell carcinoma of the lung. 3. Hyponatremia. 4. Hypertension. 5. Atrial fibrillation. PLAN: The patient is currently comfortable. Her breathing is controlled. She is on Cardizem for her atrial fibrillation. She is on Lasix daily. She has converted back to sinus rhythm. She was seen by Dr. Solis, I appreciate his input. The patient is on metoprolol. The patient is going to continue with Xopenex. The patient is waiting for a thoracentesis to be done tomorrow with the PleurX catheter. I did speak to Dr. Love regarding the case. Rick Knight MD
[2016-12-26] MEDS: Latanoprost 2.5 ml Opht Soln OD SCH (21:08)
[2016-12-27] MEDS: Levalbuterol 0.63 MG/3 ML Inhal Soln UD IH SCH ×4 (01:14→19:18)
[2016-12-27] MEDS: Brimonidine 0.15% 50 DROP/5 ML BOTTLE OD SCH ×2 (05:34→16:32)
[2016-12-27 06:31] LABS: HEMATOCRIT 35.7 % (36.0-48.0); MEAN CELL VOLUME 87.3 fl (80.0-105.0); MEAN CORPUSCULAR HEMOGLOBIN 27.9 pg (25.0-35.0); MEAN CORPUSCULAR HGB CONC 31.9 g/dl (31.0-37.0); MEAN PLATELET VOLUME 9.5 fl (7.0-11.0); RED CELL DISTRIBUTION WIDTH 15.2 % (11.5-14.5); WHITE BLOOD COUNT 9.7 10^3/ul (4.5-11.0)
[2016-12-27 07:03] LABS: ALB/GLOB RATIO 1.2 (1.1-1.8); ALKALINE PHOSPHATASE 59 U/L (38-126); ALT/SGPT 35 U/L (7-56); AST/SGOT 26 U/L (14-36); BILIRUBIN,TOTAL 0.5 mg/dL (0.2-1.3); BLOOD UREA NITROGEN 17 mg/dL (7-21); CALCIUM 8.8 mg/dL (8.4-10.5); CARBON DIOXIDE 38 mmol/L (21-33); CHLORIDE 88 mmol/L (98-107); GFR AFRICAN-AMERICAN > 60; GLUCOSE,RANDOM 115 mg/dL (70-110); MAGNESIUM 1.9 mg/dL (1.7-2.2); POTASSIUM 3.8 mmol/L (3.6-5.0); SODIUM 132 mmol/L (132-148)
[2016-12-27] MEDS: Budesonide 0.5 mg/2 ml Inhal Susp UD IH SCH ×2 (07:27→19:18)
--- NOTE | 2016-12-27 08:02 | PN ---
SUBJECTIVE: The patient appears comfortable this morning. She is not short of breath at rest. PHYSICAL EXAMINATION VITAL SIGNS: Temperature is 97.4, pulse on the monitor is 88, respiratory rate 18, blood pressure 115/80. Oxygen saturation on nasal cannula is between 97% to 99%. HEENT: Normocephalic, atraumatic. NECK: No JVD. CARDIOVASCULAR: Systolic ejection murmur at the lower left sternal border. No S3 gallop. LUNGS: Bronchial breath sounds-right lung. Less rhonchi. No wheezing. EXTREMITIES: No clubbing, cyanosis or edema. Calves are nontender to palpation. GASTROINTESTINAL: Abdomen is soft, nontender, nondistended. Bowel sounds are positive. SKIN: No acute rash. NEUROLOGIC: Limited at the present time. IMPRESSION: 1. Recurrent bronchitis. 2. Chronic obstructive pulmonary disease. 3. 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 4. Recurrent large right pleural effusion. 5. Rapid atrial fibrillation. 6. Mild anemia. PLAN: The patient appears comfortable this morning. She is not short of breath at rest. She does state to feeling much better overall. On physical exam, her bronchospasm is certainly less. I will continue with the current nebulizer treatments and current intravenous steroids for now. Her alveolar-arterial gradient is also less. Oxygen saturation on nasal cannula is now 97% to 99%. The patient is for repeat thoracentesis this morning. Hopefully, a PleurX catheter can be placed. I did discuss the case with Dr. Knight yesterday. I will discuss the case with him again today. Unfortunately, the overall status/prognosis for this patient remains very poor. All are aware. Gabo Love MD KELVIN
[2016-12-27] MEDS: Potassium Chloride 10 mEq ER Tab PO SCH (08:15)
--- NOTE | 2016-12-27 08:53 | CP.PCM.PN ---
Subjective - Date & Time of Evaluation Date of Evaluation: 12/27/16 Time of Evaluation: 07:00 - Subjective Subjective: Stable on 2R. No CP or SOB. For thoracentesis/PleurX catherter today. V/S noted. AF with rapid VR this AM PE: Lungs: decreased BS on right Cor.: irreg S1S2 Abd.: soft Ext.: no edema Neuro.: alert I/O NA Labs noted. Echo: 11/18/16 noted. Objective - Vital Signs/Intake and Output Vital Signs (last 24 hours): Temp Pulse Resp BP Pulse Ox 97.4 F L 157 H 18 115/80 97 12/27/16 05:28 12/27/16 08:15 12/27/16 05:28 12/27/16 08:15 12/27/16 05:28 Intake and Output: 12/27/16 12/27/16 06:59 18:59 Intake Total 240 Balance 240 - Medications Medications: Current Medications Brimonidine Tartrate (Alphagan P 0.15% Opht) 1 drop OD Q8H [facility] Last Admin: 12/27/16 05:34 Dose: Not Given Budesonide (Pulmicort Respules) 0.5 mg IH [id number] [facility] Last Admin: 12/27/16 07:27 Dose: 0.5 mg Diltiazem HCl (Cardizem) 30 mg PO QID [facility] Last Admin: 12/27/16 08:15 Dose: 30 mg Dorzolamide HCl (Trusopt) 0 ml OD BID [facility] Last Admin: 12/26/16 18:03 Dose: Not Given Furosemide (Lasix) 40 mg PO DAILY [facility] Last Admin: 12/26/16 09:23 Dose: 40 mg Latanoprost (Xalatan Opht) 0 ml OD HS [facility] Last Admin: 12/26/16 21:08 Dose: 2.5 ml Levalbuterol HCl (Xopenex) 0.63 mg IH [id number] [facility] Last Admin: 12/27/16 07:27 Dose: 0.63 mg Levalbuterol HCl (Xopenex) 0.63 mg IH Q2 PRN PRN Reason: Shortness of Breath Methylprednisolone (Solu-Medrol) 30 mg IVP Q12 [facility] Last Admin: 12/26/16 21:08 Dose: 30 mg Metoprolol Tartrate (Lopressor) 50 mg PO 0800,1800 [facility] Last Admin: 12/27/16 07:11 Dose: 50 mg Potassium Chloride (Klor-Con 10) 10 meq PO BRK [facility] Last Admin: 12/27/16 08:15 Dose: 10 meq - Labs Labs: 12/27/16 06:20 12/27/16 06:20 PT 11.5 SECONDS (9.4-12.5) 12/24/16 10:50 INR 1.04 (0.93-1.08) 12/24/16 10:50 APTT 30.4 Seconds (25.1-36.5) 12/24/16 10:50 Assessment and Plan - Assessment and Plan (Free Text) Assessment: Advanced squamous cell lung ca. Large right pleural effusion (white-out right lung on CXR) PAF Known small pericardial effusion on last echo, 11/21 HBP COPD/Former Smoker DNR/DNI status Plan: Continue PO metoprolol and cardizem Continue tel. A/C to be considered. F/U echo. Will follow.
[2016-12-27] MEDS: Dorzolamide 2% Opht Sol 10ml OD SCH ×2 (09:20→19:27)
[2016-12-27] MEDS: MethylPREDNISolone 40 mg Vial IVP SCH (09:24)
[2016-12-27] MEDS ORDERED: Lidocaine 2% Inj (20ml) ONE (11:17)
[2016-12-27] MEDS ORDERED: Midazolam 2 MG/2 ML VIAL ONE (12:11)
[2016-12-27] MEDS ORDERED: Naloxone 0.4 mg/ml Inj (Adult) ONE (12:49)
[2016-12-27] MEDS ORDERED: Flumazenil 0.1 mg/ml Inj (5ml) IVP ONE (12:52)
[2016-12-27] MEDS ORDERED: Oxycodone/Acetaminophen 5/325 mg Tab PO PRN (13:01)
[2016-12-27] MEDS ORDERED: Sodium Chloride 0.9% 500 ML IV STA (14:42)
[2016-12-27] MEDS ORDERED: Sodium Chloride 0.9% 1,000 ML IV STA (14:42)
--- NOTE | 2016-12-27 14:57 | PCM.RRT ---
<Juan Shrestha - Last Filed: 12/27/16 14:43> PALS SPECIALIST Nurse Assessment - Situation Date: 12/27/16 PALS SPECIALIST Location:: [address] [place] [address] PALS SPECIALIST Reason for Call: Hypotension PALS SPECIALIST Called By: RN - IV IV Inserted during PALS SPECIALIST?: No - Respiratory Oxygen Delivery Method: Non Rebreather @% Oxygen Flow Rate: 100 Received Nebulizer Treatments:: No Was the Patient Ventilated with Bag/Mask 100% O2?: No Secretions Suctioned?: No Was the Patient Intubated?: No Was the Patient Placed on a Ventilator?: No - Diagnostic Test Ordered EKG: No Chest X-Ray: Yes CT Scan: No CPR started during PALS SPECIALIST?: No - Vital Signs Vital Sign: BP: 6/30 HR: 74 O2 Sat: 99 - Finger Stick Blood Glucose Finger Stick Blood Glucose: 169 - [place] Coma Scale Coma Scale Eye Opening: Spontaneous Coma Scale Motor: Obeys Commands Movement Coma Scale Verbal: Oriented - Sepsis Screen Part 1 Sepsis Screen Part 1: Hypotensive - Vital Signs at end of PALS SPECIALIST Vital Signs at end of PALS SPECIALIST: BP: 76/56 - Recommendations 5) PALS SPECIALIST Level of Care Recommendations: Remain in current setting Notifications: Attending Physician - Neurological Status (Select all that apply): Alert, Responsive, Oriented, Verbal, Follows Commands - Constitutional Appears: Well - Head Head Exam: ATRAUMATIC, NORMAL INSPECTION - Eyes Eye Exam: EOMI - Respiratory Exam Respiratory Exam: Decreased Breath Sounds (left sided) Additional comments: absent right sided breath sounds - Cardiovascular Exam Cardiovascular Exam: REGULAR RHYTHM - GI/Abdominal Exam GI & Abdominal Exam: Soft, Normal Bowel Sounds - Neurological Exam Neurological Exam: Alert, Awake - Extremities Exam Extremities Exam: absent: Calf Tenderness, Pedal Edema Plan - Assessment of Findings&Treatment Plan PALS SPECIALIST called for hypotension, BP 65/30 Patient seen and evaluated, noted to be hypotensive, with no complaints. No chest pain, no shortness of breath. Pt is DNR/DNI with history of Stage IV Lung CA s/p thoracentesis and pleurex catheter placement prior to PALS SPECIALIST with Dr. Skyler Hillman. Patient was given 500mL NS bolus, followed by another 1,000 mL bolus of NS. Upon physical exam of the lungs, lungs sounds appreciated on left side, no lung sounds on right side CXR stat ordered and showed what appeared to be tension pneumothorax. ICU, Surgery, Dr. Higgins, Dr. Hillman were contacted immediately. As per ICU and Surgery needle decompression was preformed. Dr. Skyler Hillman arrived to bedside-stated her presentation is a trapped lung. Placed patient pleurex catheter on wall suction with drainage of ~200mL of serosanguinous fluid. Surgery placed pleurex catheter onto chest tube. ICU team spoke to patient's family/daughter in detail explaining everything that was preformed during PALS SPECIALIST. Patient still hypotensive, receiving one liter bolus. Will continue to monitor. Patient is DNR/DNI and will remain on the floor for comfort measures and will not be transferred to the ICU as per ICU and family. Spoke to Dr. Higgins at 14:47 and agrees with plan <Davey Yanez - Last Filed: 12/29/16 19:02> PALS SPECIALIST Nurse Assessment - Vital Signs Vital Sign: Rapid Response Vital Sign Blood Pressure 55/34 Pulse Rate 72 Respiratory Rate 24 Oxygen Saturation 95 - Vital Signs at end of PALS SPECIALIST Vital Signs at end of PALS SPECIALIST: Rapid Response End Vital Sign Blood Pressure 76/56 Pulse Rate 59 Respiratory Rate 24 Temperature 97.7 F O2 Sat by Pulse Oximetry 92 Attending/Attestation - Attestation I have personally seen and examined this patient.: Yes I have fully participated in the care of the patient.: Yes I have reviewed all pertinent clinical information, including history, physical exam and plan: Yes Notes (Text): Discussed with PMD and the patients daughter Humaira. Palliative care consult placed.
--- NOTE | 2016-12-27 15:03 | CP.CCUPN ---
CCU Subjective - Physician Review Subjective (Free Text): 12/27/16 14:53 Patient is 86yo female with PMHx significant for Sq Cell Ca of lung with mets, with pleural effusion, CHF, Afib, admitted with SOB. Pt today had thoracentesis , with PleureX catheter placed, post procedure rapid response called for SOB, patient found to have Mod-large R penumothorax, likely signifying trapped lung, pneumothorax ex vacuo. Dr Hillman came to the bedside and attached the pleurex catheter to pleuravc canister, with noted air. Patient is DNR/DNI, patients daughter daughter/HCP Humaira at the bedside, reports she wants her mother to be comfortable, with no aggressive measures to be taken, including ICU transfer. Patient to receive fluid bolus and morphine PRN. Patients daughter updated of clinical situation. CCU Objective - Vital Signs / Intake & Output Vital Signs (Last 4 hours): Vital Signs Temp Pulse Resp BP Pulse Ox 12/27/16 13:33 98.4 F 121 H 22 90/54 L 89 L 12/27/16 13:18 98.4 F 119 H 22 88/49 L 89 L 12/27/16 13:03 98.4 F 115 H 26 H 99/54 L 91 L Intake and Output (Last 8hrs): Intake & Output 12/26/16 12/27/16 12/27/16 22:59 06:59 14:59 Intake Total 240 Balance 240 Weight 87 lb Intake: Oral 240 Other: # Voids Urine, Voided 2 # Bowel Movements 0 - Physical Exam Head: Positive for: Atraumatic, Normocephalic Pupils: Positive for: PERRL Extroacular Muscles: Positive for: EOMI Conjunctiva: Positive for: Normal Mouth: Positive for: Moist Mucous Membranes Pharnyx: Positive for: Normal. Negative for: ERYTHEMA, EXUDATE, TONSILS ENLARGED Nose (External): Positive for: Atraumatic Nose (Internal): Positive for: Normal Inspection Neck: Positive for: Normal Range of Motion, Trachea Midline. Negative for: Meningeal Signs, MIDLINE TENDERNESS, Paraspinal Tenderness, JVD, Lymphadenopathy Respiratory/Chest: Positive for: Good Air Exchange, Decreased Breath Sounds ( Diffusely on right), Rhonchi (Scattered throughout L>R). Negative for: Clear to Auscultation, Respiratory Distress, Accessory Muscle Use, Wheezes, Rales, Retracting, Tachypneic, Tender to Palpation, Other Cardiovascular: Positive for: Regular Rate and Rhythm, Normal S1, S2, Peripheal Pulses Present. Negative for: Murmurs, Irregular Rhythm, Tachycardic, Bradycardic Abdomen: Positive for: Normal Bowel Sounds. Negative for: Tenderness, Distention, Peritoneal Signs, Rebound, Guarding Back: Positive for: Normal Inspection. Negative for: CVA Tenderness, Midline Tenderness, Paraspinal Tenderness Upper Extremity: Positive for: Normal Inspection, Normal ROM, NORMAL PULSES, Capillary Refill < 2s. Negative for: Cyanosis, Edema Lower Extremity: Positive for: Normal Inspection, NORMAL PULSES, Normal ROM, Capillary Refill < 2 s. Negative for: Edema, CALF TENDERNESS, Annmarie's Sign Neurological: Positive for: Speech Normal Skin: Positive for: Warm, Dry, Normal Color. Negative for: Rashes Lymphatic: Negative for: Cervical Adenopathy Psychiatric: Positive for: Alert, Normal Concentration - Medications Active Medications: Active Medications Generic Name Dose Route Start Last Admin Trade Name Freq PRN Reason Stop Dose Admin Acetaminophen 650 mg 12/27/16 13:01 Tylenol 325mg Tab PO Q4 PRN Pain, Mild (1-3) Brimonidine Tartrate 1 drop 12/24/16 14:15 12/27/16 05:34 Alphagan P 0.15% Opht OD Not Given Q8H [facility] Budesonide 0.5 mg 12/25/16 08:00 12/27/16 07:27 Pulmicort Respules IH 0.5 mg [id number] [facility]ARY JANE Administration Diltiazem HCl 30 mg 12/25/16 14:00 12/27/16 10:37 Cardizem PO Not Given QID [facility] Dorzolamide HCl 0 ml 12/24/16 18:00 12/27/16 09:20 Trusopt OD 2 drop BID [facility] Administration Furosemide 40 mg 12/24/16 14:30 12/27/16 09:21 Lasix PO 40 mg DAILY [facility] Administration Sodium Chloride 1,000 mls @ 80 mls/hr 12/27/16 13:15 Sodium Chloride 0.45% IV .[id number] [facility] JANE Sodium Chloride 1,000 mls @ 999 mls/hr 12/27/16 14:42 Sodium Chloride 0.9% IV 12/27/16 15:42 .Q1H1M STA Sodium Chloride 500 mls @ 999 mls/hr 12/27/16 14:42 Sodium Chloride 0.9% IV 12/27/16 15:12 .Q31M STA Latanoprost 0 ml 12/24/16 22:00 12/26/16 21:08 Xalatan Opht OD 2.5 ml HS [facility] Administration Levalbuterol HCl 0.63 mg 12/25/16 08:00 12/27/16 13:55 Xopenex IH 0.63 mg [id number] [facility] JANE Administration Levalbuterol HCl 0.63 mg 12/25/16 06:33 Xopenex IH Q2 PRN Shortness of Breath Methylprednisolone 30 mg 12/25/16 10:00 12/27/16 09:24 Solu-Medrol IVP 30 mg Q12 [facility] Administration Metoprolol Tartrate 50 mg 12/24/16 18:00 12/27/16 07:11 Lopressor PO 50 mg 0800,1800 [facility] Administration Ondansetron HCl 4 mg 12/27/16 13:01 Zofran Inj IVP Q6H PRN Nausea/Vomiting Oxycodone/Acetaminophen 1 tab 12/27/16 13:01 Percocet 5/325 Mg Tab PO 12/30/16 13:02 Q4H PRN Pain, moderate (4-7) Potassium Chloride 10 meq 12/24/16 14:30 12/27/16 08:15 Klor-Con 10 PO 10 meq BRK [facility]ARY JANE Administration - Patient Studies Lab Studies: Lab Studies 12/27/16 12/27/16 Range/Units 06:20 06:20 WBC 9.7 D (4.5-11.0) 10^3/ul RBC 4.09 (3.5-6.1) 10^6/uL Hgb 11.4 L (12.0-16.0) g/dL Hct 35.7 L (36.0-48.0) % MCV 87.3 (80.0-105.0) fl MCH 27.9 (25.0-35.0) pg MCHC 31.9 (31.0-37.0) g/dl RDW 15.2 H (11.5-14.5) % Plt Count 365 (120.0-450.0) 10^3/uL MPV 9.5 (7.0-11.0) fl Sodium 132 (132-148) mmol/L Potassium 3.8 (3.6-5.0) mmol/L Chloride 88 L (98-107) mmol/L Carbon Dioxide 38 H (21-33) mmol/L Anion Gap 10 (10-20) BUN 17 (7-21) mg/dL Creatinine 0.7 (0.7-1.2) mg/dL Est GFR ( Amer) > 60 Est GFR (Non-Af Amer) > 60 Random Glucose 115 H (70-110) mg/dL Calcium 8.8 (8.4-10.5) mg/dL Magnesium 1.9 (1.7-2.2) mg/dL Total Bilirubin 0.5 (0.2-1.3) mg/dL AST 26 (14-36) U/L ALT 35 (7-56) U/L Alkaline Phosphatase 59 (38-126) U/L Total Protein 6.0 (5.8-8.3) g/dL Albumin 3.3 (3.0-4.8) g/dL Globulin 2.7 gm/dL Albumin/Globulin Ratio 1.2 (1.1-1.8) Laboratory Results - last 24 hr 12/27/16 12/27/16 06:20 06:20 WBC 9.7 D RBC 4.09 Hgb 11.4 L Hct 35.7 L MCV 87.3 MCH 27.9 MCHC 31.9 RDW 15.2 H Plt Count 365 MPV 9.5 Sodium 132 Potassium 3.8 Chloride 88 L Carbon Dioxide 38 H Anion Gap 10 BUN 17 Creatinine 0.7 Est GFR ( Amer) > 60 Est GFR (Non-Af Amer) > 60 Random Glucose 115 H Calcium 8.8 Magnesium 1.9 Total Bilirubin 0.5 AST 26 ALT 35 Alkaline Phosphatase 59 Total Protein 6.0 Albumin 3.3 Globulin 2.7 Albumin/Globulin Ratio 1.2 Critical Care Progress Note - Nutrition Nutrition: Nutrition Category Date Time Status Heart Healthy Diet [DIET] Diets 12/24/16 Dinner Ordered Assessment/Plan - Assessment and Plan (Free Text) Assessment: 86yo female with metastiac Sq Candy of the lung, with R pleural effusion s/p thoracentesis and pleurex catheter placement, with R pneumothorax, s/p pleurex catheter connection to pleuravac. 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 Cont with suction to pleuravac IVF bolus Pain control Palliative measures Morphine PRN Palliative Care consult
[2016-12-27] MEDS ORDERED: Morphine 2 mg/ml ISec IVP PRN (16:33)
[2016-12-27] MEDS: Sodium Chloride 0.45% 1,000 ML IV SCH ×2 (16:36→17:59)
[2016-12-27] MEDS ORDERED: Sodium Chloride 0.9% 500 ML IV SCH (17:15)
[2016-12-27 18:46] VITALS: BP 75/51; PULSE 135; RESP 24; TEMP 96; O2SAT 97
--- NOTE | 2016-12-27 19:45 | VASCULAR ---
PROCEDURE: Ultrasound fluoroscopically guided right tunneled pleural catheter placement CLINICAL HISTORY: Metastatic lung CA. Recurrent large right pleural effusion with shortness of breath. Needs tunneled catheter PHYSICIAN(S): Skyler Hillman MD. TECHNIQUE: The relative risks and indications of the procedure were explained to the patient and her daughter and consent obtained. The patient was placed in a left decubitus position on the arteriogram table and sonography of the right chest performed. This revealed a large right pleural effusion and volume loss in the right lower lobe. An intercostal approach on the right was selected in the area prepped and draped in usual sterile fashion. Conscious sedation monitoring were provided throughout the procedure by a nurse. 818 gauge needle was advanced into the right pleural space and yellow fluid aspirated. A 0.035 glidewire was directed posteriorly and superiorly. Next the peel-away sheath was placed at the puncture site. A Aspira catheter was advanced over the guidewire posteriorly and superiorly. The catheter was tunneled along the intercostal margin. The catheter was secured. Thoracentesis was performed. 2500 cc of yellow than bloody fluid was aspirated. The lung did not re-expand after thoracentesis, presumably due to the obstructive bronchial lesion. IMPRESSION: 1. Ultrasound fluoroscopically placed tunneled right pleural catheter 2. Rt thoracentesis. 2500 cc of yellow then bloody fluid was removed.
--- NOTE | 2016-12-27 21:30 | CP.PCM.PRO ---
Pronouncement of Note - Clinical Findings Physical Exam: No Response Verbal/Painful Stimuli, Absent Peripheral Pulses{ Carotid & Femoral}, Absent Heart & Breath Sounds, No Pupillary Light Reflex, No Corneal Reflex, Pupils Fixed & Dilated (Pupils are fixed and mid dilated) - Pronouncement Time Time of Pronouncement of : 20:40 (Pt at 20:17) - Notifications Pronouncement Notifications: Family Notified, Atending Notified Juvenile Court Liaison Notified: Yes - Autopsy Autopsy Requested: No - [place] [id number]
--- NOTE | 2016-12-28 08:00 | RAD ---
HISTORY: sob COMPARISON: Portable chest 12/24/2016. FINDINGS: LUNGS: Left chest remains clear. A large right pneumothorax is appreciate with prominent atelectasis affecting the right lung nearly completely if not completely. Right-sided chest tube is identified in position. Right Lung may be trapped given the extensive right pleural effusion dating back to 10/07/2016. PLEURA: No left pneumothorax or left pleural effusion. Trace right pleural effusion is not excluded remaining. CARDIOVASCULAR: Normal. OSSEOUS STRUCTURES: No significant abnormalities. VISUALIZED UPPER ABDOMEN: Normal. OTHER FINDINGS: None. IMPRESSION: Extensive right pneumothorax appreciated limited right pleural effusion not excluded. Right-sided chest tube is identified terminating at the right apex. Continued clinical and radiographic follow-up are advised.
--- NOTE | 2016-12-28 09:15 | PN ---
DATE: 12/27/2016 SUBJECTIVE: The patient has no complaints of any headaches or dizziness. She was initially admitted to the hospital because of a right lung effusion that was malignant. She is scheduled for thoracentesis with a PleurX catheter to be placed. After her fluid removal, she can be discharged home if cleared by Dr. Skyler Hillman from Interventional [facility]iology. I did speak to the patient's daughter to give an update on the patient's diagnosis and plan of care. PHYSICAL EXAMINATION VITAL SIGNS: Temperature is 97.4, pulse 157, blood pressure is 115/80, and respirations 18. GENERAL: The patient is lying in bed, flat, comfortable. HEENT: No oral lesion. Anicteric sclerae. Moist mucosa. NECK: No JVD, adenopathy, or thyromegaly. CARDIOVASCULAR: S1 and S2, regular. No murmurs, rubs, or gallops. LUNGS: Clear to auscultation bilaterally. No wheeze, rales, or rhonchi. ABDOMEN: Bowel sounds are positive, soft, nontender and nondistended. EXTREMITIES: no cyanosis, clubbing or edema. LABORATORY DATA: White count 9.7, hemoglobin 11.4, creatinine 0.7. ASSESSMENT: 1. 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 3. Hyponatremia, improved. 4. Hypertension. 5. Atrial fibrillation, new onset. 6. DNR/DNI. PLAN: The patient is currently comfortable, breathing not significantly labored. She has gone into a rapid atrial fibrillation again. She was in normal sinus rhythm. We will await Dr. Pineda's evaluation. The patient is also DNR/DNI. The patient is on metoprolol; this will be continued. She is on Lasix daily. She is on Solu-Medrol as well as Xopenex. Rick Knight MD
== END 2016-12-27 20:17 | DRG 181 ==
LOC: ED 09:36 → ERH 12:35 → 2RNO 13:58
PROVIDERS: ADMIT Internal Medicine Nephrology; ATTEND Internal Medicine Nephrology
PROC: 3E0F7GC Introduction of Other Therapeutic Substance into Respiratory Tract, Via Natural or Artificial Opening (ICD-10-PCS; 2016-12-24)
PROC: 0W9930Z Drainage of Right Pleural Cavity with Drainage Device, Percutaneous Approach (ICD-10-PCS; principal; 2016-12-27)
DX: C34.91 Malignant neoplasm of unspecified part of right bronchus or lung (principal); J91.0 Malignant pleural effusion; J93.9 Pneumothorax, unspecified; I31.3 Pericardial effusion (noninflammatory); I11.0 Hypertensive heart disease with heart failure; I50.9 Heart failure, unspecified; E87.1 Hypo-osmolality and hyponatremia; I48.0 Paroxysmal atrial fibrillation; J44.9 Chronic obstructive pulmonary disease, unspecified; D64.9 Anemia, unspecified; I08.1 Rheumatic disorders of both mitral and tricuspid valves; Z66 Do not resuscitate; Z87.891 Personal history of nicotine dependence